=== PATIENT | female | born 1940 | race Hispanic/Latino ===

== ENCOUNTER 2024-06-06 20:13 | Inpatient (IN) | payer OTHER, MEDICARE ==
[~2024-06-06] VITALS: Ht 152.4 cm; Wt 65.2 kg
[2024-06-06] MEDS: VANCOMYCIN KIT 1 GM/250 ML IV.KIT IV ONE (20:29)
[2024-06-06] MEDS: ZOSYN 3.375GM +NS 50ML IV ONE (20:29)
[2024-06-06 20:36] LABS: BASOPHILS # (AUTO) 0.01 K/uL (0.00-0.20); BASOPHILS % (AUTO) 0.2 % (0.0-5.0); HEMATOCRIT 38.8 % (36-48); IMMATURE GRANULOCYTE ABSOLUTE 0.03 K/uL (0-1); LYMPHOCYTES # (AUTO) 0.5 K/uL (1.0-4.8); LYMPHOCYTES % (AUTO) 9.1 % (21.0-51.0); MEAN CORPUSCULAR HEMOGLOBIN 29.7 pg (27.0-33.0); MEAN CORPUSCULAR VOLUME 87.4 fL (79-99); MONOCYTES # (AUTO) 0.4 K/uL (0.1-1.0); MONOCYTES % (AUTO) 6.9 % (3.0-13.0); NEUTROPHILS # (AUTO) 4.9 K/uL (1.8-7.7); NEUTROPHILS % (AUTO) 83.3 % (40.0-77.0); PLATELET COUNT (AUTO) 138 K/uL (130-400); RED BLOOD CELL COUNT(AUTO) 4.44 MIL/uL (4.00-5.50); RED CELL DISTRIBUTION WIDTH 12.6 % (11.0-15.5); WHITE BLOOD COUNT (AUTO) 5.8 K/uL (4.8-10.8)
--- NOTE | 2024-06-06 20:48 | HMCIMG ---
CHEST 1VW CLINICAL HISTORY: 12/11/2023 COMPARISON: None TECHNIQUE: Single view of the chest was obtained. FINDINGS: Lungs are clear. The cardiac size and mediastinum are unremarkable. The bony structures stable. IMPRESSION: No acute cardiopulmonary process identified.
[2024-06-06 20:53] LABS: INFLUENZA TYPE A Negative For Type A (NEGATIVE); INFLUENZA TYPE B Negative For Type B (NEGATIVE); SARS-CoV-2, RNA, NAAT NEGATIVE SARS CoV-2 (NEGATIVE)
[2024-06-06 21:01] LABS: CREATININE 0.8 mg/dL (0.5-1.0)
[2024-06-06 21:10] LABS: ALBUMIN 3.5 g/dL (3.5-5.0); BILIRUBIN,TOTAL 3.3 mg/dL (0.2-1.0); TOTAL PROTEIN, SERUM 7.4 g/dL (6.0-8.3)
--- NOTE | 2024-06-06 21:28 | ERN ---
General Chief Complaint: Sepsis Stated Complaint: RUNNY NOSE Time Seen by MD: 20:15 History of Present Illness Initial Comments Mr Ruiz is an 83-year-old female significant past medical history of obesity, essential hypertension comes in today with upper respiratory symptoms. Patient has been having fevers and myalgias. She has also been having poor p.o. intake. Patient family is concerned about ongoing deterioration. Allergies: Coded Allergies: No Known Allergies (Unverified Allergy, Unknown, 12/05/23) Home Meds No Active Prescriptions or Reported Meds Past Medical History Past Medical History: High Cholesterol, Hypertension Medical History Other: BLIND RT EYE, ACID REFLUX Past Surgical History: Female( History) History: Not Applicable ROS Dictation Constitutional: Positive for fever and chills Eyes: Negative for injury, pain,redness, and discharge ENT: Negative for injury,pain or swelling Cardiovascular: Negative for chest pain, palpitations, and edema Respiratory: Positive for cough, shortness of breath Abdomen/GI: Negative for abdominal pain, nausea, vomiting, diarrhea, and constipation Back: Negative for injury and pain : Negative for injury, bleeding and discharge MS/Extremity: Negative for injury and deformity Skin: Negative for rash, and discoloration Neuro: Negative for headache, weakness, numbness, tingling, and seizure Psych: Negative for suicide ideation, homicidal ideation, and hallucinations Physical Exam Physical Exam Dictation General: Elderly female Head/Face: Normocephalic, Eyes: PERRL, EOMI, vision at baseline ENT: Congested Neck: Trachea midline, supple Cardiovascular: RRR, normal S1/S2, Respiratory: CTAB, no respiratory distress Abdomen: Soft, non-tender, non-distended Skin: Warm, dry, normal turgor, no rash MS/Extremity: Pulses equal Neuro: COAx4, GCS 15, Results Laboratory and Microbiology Lab and Micro Result Laboratory Tests Test 06/06/24 20:25 06/06/24 21:07 White Blood Count 5.8 K/uL (4.8-10.8) Red Blood Count 4.44 MIL/uL (4.00-5.50) Hemoglobin 13.2 g/dL (12.0-16.0) Hematocrit 38.8 % (36-48) Mean Corpuscular Volume 87.4 fL (79-99) Mean Corpuscular Hemoglobin 29.7 pg (27.0-33.0) Mean Corpuscular Hemoglobin Concent 34.0 g/dL (32.0-36.0) Red Cell Distribution Width 12.6 % (11.0-15.5) Platelet Count 138 K/uL (130-400) Mean Platelet Volume 10.4 fL (7.5-10.5) Immature Granulocyte % (Auto) 0.5 % (0-1) Neutrophils (%) (Auto) 83.3 % (40.0-77.0) H Lymphocytes (%) (Auto) 9.1 % (21.0-51.0) L Monocytes (%) (Auto) 6.9 % (3.0-13.0) Eosinophils (%) (Auto) 0.0 % (0.0-8.0) Basophils (%) (Auto) 0.2 % (0.0-5.0) Neutrophils # (Auto) 4.9 K/uL (1.8-7.7) Lymphocytes # (Auto) 0.5 K/uL (1.0-4.8) L Monocytes # (Auto) 0.4 K/uL (0.1-1.0) Eosinophils # (Auto) 0.00 K/uL (0.00-0.70) Basophils # (Auto) 0.01 K/uL (0.00-0.20) Absolute Immature Granulocyte (auto 0.03 K/uL (0-1) Nucleated Red Blood Cells 0.0 % (0.0-0.19) White Cell Morphology Comment See comments Sodium Level 135 mmol/L (136-145) L Potassium Level 4.0 mmol/L (3.5-5.1) Chloride Level 99 mmol/L (101-111) L Carbon Dioxide Level 28 mmol/L (21-32) Blood Urea Nitrogen 15 mg/dL (7-18) Creatinine 0.8 mg/dL (0.5-1.0) Glomerular Filtration Rate Calc 74 mL/min (>90) Random Glucose 294 mg/dL (70-105) H Total Calcium 8.9 mg/dL (8.5-10.1) Total Bilirubin 3.3 mg/dL (0.2-1.0) H Aspartate Amino Transf (AST/SGOT) 423 U/L (10-37) H Alanine Aminotransferase (ALT/SGPT) 254 U/L (12-78) H Alkaline Phosphatase 271 U/L (50-136) H Troponin I High Sensitivity 9 ng/L (4-50) Total Protein 7.4 g/dL (6.0-8.3) Albumin 3.5 g/dL (3.5-5.0) Amylase Level 36 U/L (25-115) Lipase 38 U/L (16-77) Influenza Type A Antigen Negative For Type A Influenza Type B Antigen Negative For Type B SARS-CoV-2, RNA, NAAT NEGATIVE SARS CoV-2 Lactic Acid Level 4.4 mmol/L (0.8-2.5) H MDM PATIENT WILL BE ADMITTED FOR SEPSIS. PATIENT HAS BEEN STARTED ON FLUIDS AND ANTIBIOTICS. PATIENT WAS AN ELEVATED LFTS AND LACTIC ACID MDM: DIFFERENTIAL DIAGNOSIS: SEPSIS RATIONALE: TESTS CONSIDERED AND ORDERED SECONDARY TO SHARED DECISION MAKING INCLUDE: LABS, ECG AND RADIOLOGY PREVIOUS OUTSIDE RECORDS REVIEWED: OLD ER VISITS. RISK OF COMPLICATION AND/OR MORBIDITY OR MORTALITY OF PATIENT MANAGEMENT: NONE MEDICATIONS-PER MEDICATION RECONCILIATION NEED FOR HOSPITALIZATION: PATIENT DOES MEET CRITERIA FOR HOSPITALIZATION. NEED FOR EMERGENCY MAJOR/MINOR SURGERY: NO THERE ARE NO SOCIAL CONCERNS WITH THIS PATIENT. PRESCRIPTION DRUG MANAGEMENT PRESCRIPTIONS WILL INCLUDE SYMPTOMATIC CARE PATIENT'S PRIOR EXTERNAL MEDICAL RECORDS FROM OTHER ER VISITS WERE REVIEWED BY ME INDICATED. PRIOR TESTING AND RESULTS FROM PREVIOUS VISITS WERE REVIEWED. PRIOR TESTS WERE TAKEN INTO ACCOUNT WITH MEDICAL DECISION MAKING AND RESOURCE UTILIZATION, INDEPENDENT HISTORIAN/HISTORIANS WERE USED TO OBTAIN COMPLETE MEDICAL HISTORY. I INDEPENDENTLY INTERPRETED THE TEST THAT WERE PERFORMED, RESULTS WERE REVIEWED BY ME AND CONSIDERED FINDINGS ON RADIOLOGY IF ORDERED. MEDICAL MANAGEMENT AND EXAMINATION INTERPRETATION DISCUSSIONS WERE HAD BY ME WITH OTHER QUALIFIED HEALTHCARE PROFESSIONALS INDICATED FOR THE PATIENT'S CARE. ED Course Orders Procedure Category Date Status Time Cbc With Differential LAB 06/06/24 Complete 20:16 Comprehensive LAB 06/06/24 Complete Metabolic Panel 20:16 Amylase LAB 06/06/24 Complete 20:16 Troponin I High LAB 06/06/24 Complete Sensitivity 20:16 Urinalysis Profile LAB 06/06/24 Logged 20:16 Zosyn 3.375gm+Ns 50ml PHA 06/06/24 Complete (Zosyn 3.375gm+Ns 20:30 Chest 1vw RAD 06/06/24 Resulted 20:16 Lipase LAB 06/06/24 Complete 20:16 Vancomycin 1g/250ml PHA 06/06/24 Complete Kit (Vancomycin 1g/2 20:30 Influenza Type A & B, LAB 06/06/24 Complete Rapid 20:19 Covid Rna Naat LAB 06/06/24 Complete 20:19 Blood Cult VENTURA 06/06/24 In Process 20:26 Lactic Acid LAB 06/06/24 Complete 21:07 Us Abdominal Ruq\Ltd US 06/06/24 Transmitted 21:55 Current Medications Medications (Trade) Dose Ordered Sig/Jair Route PRN Reason Start Time Stop Time Status Last Admin Dose Admin Piperacillin Sod/ Tazobactam Sod (Zosyn 3.375gm+NS 50ml) 3.375 gm ONCE ONCE IV 06/06/24 20:30 06/06/24 20:31 DC 06/06/24 20:29 Vancomycin HCl (Vancomycin 1g/ 250ml Kit) 1 gm ONCE ONCE IV 06/06/24 20:30 06/06/24 20:31 DC 06/06/24 20:29 Vital Signs Date Time Temp Pulse Resp B/P (MAP) Pulse Ox O2 Delivery O2 Flow Rate FiO2 06/06/24 21:35 100.0 103 21 132/62 96 Room Air* 0 21 06/06/24 21:04 100.8 106 23 142/61 97 Room Air* 0 21 06/06/24 20:30 101.5 111 20 154/61 97 Room Air* 0 06/06/24 20:15 101.7 117 20 147/68 96 Room Air DX & DISP Disposition: Inpatient Departure Impression: Primary Impression: Sepsis Condition: Stable Scripts No Active Prescriptions or Reported Meds Referrals: SELF,REFERRAL (PCP) TIMO ARCE MD Jun 06, 2024 21:28
[2024-06-06] MEDS: 0.9%NACL 1000ML 1,836 ML IV ONE (22:00)
[2024-06-06] MEDS ORDERED: LISI10TA24 PO (22:02)
[2024-06-06] MEDS ORDERED: ATOR10TA69 PO (22:02)
[2024-06-06] MEDS ORDERED: PANT40TA54 PO (22:02)
--- NOTE | 2024-06-06 22:07 | NUR ---
MED REC DONE AT THIS TIME.
[2024-06-06 22:24] LABS: INR 1.11 (0.85-1.15); PROTHROMBIN TIME 11.9 SEC (9.6-11.6)
[2024-06-06] MEDS ORDERED: IpraTROPium/alBUTERol SULFATE 3 ML SOLUTION IH PRN (22:30)
[2024-06-06] MEDS ORDERED: GLUCAGON 1MG KIT 1 MG ML IM PRN (22:30)
[2024-06-06] MEDS ORDERED: DEXTROSE 50%-WATER 50 ML DISP.SYRIN IV PRN (22:30)
--- NOTE | 2024-06-06 22:31 | HP ---
[facility] HISTORY & PHYSICAL Date Patient Seen: Jun 07, 2024 Time of Visit: 0045 Supervising Physician: [Dr. Ankur Leonard ] Primary Care Physician: [Dr. Cintia Menard] Outpatient Specialists: [ ] Inpatient Consults: [ ] PROBLEM LIST: Severe sepsis-POA, currently unknown source Lactic acidosis-POA Hepatic transaminitis-POA Hyperglycemia without diabetes diagnosis-POA Hyperbilirubinemia-POA Primary HTN HLD GERD Dementia Fatty liver Legally blind Cataract Glaucoma PLAN: -Admit to PCCU -Start on IV Vanco and Cefepime -IV fluids resuscitation -Pending UA and blood CX -Continue to monitor WBC trends, LA, fever curve, SIRS/mews score -Obtain CT AP -Obtain hepatitis screen and Hg A1c in am -consider GI consult in a.m., as well as MRCP versus HIDA scan 2/2 hyperbilirubinemia and hepatic transaminitis HPI: [ Patient is a 83-year-old female with PMH significant for HTN, HLD, dementia and fatty liver who has presented to the ED accompanied by her daughter complaining of chills, respiratory symptoms with phlegm and looking pale. Daughter claimed that the patient was in her usual state of well-being when she suddenly felt the symptoms since this morning. Patient claims that she could not stand the phlegm while the daughter was concerned because she was looking pale. Significant negatives are fever, nausea, vomiting, abdominal bloating, diarrhea, abdominal pain, dysuria or syncope. At the ED, preliminary lab works were concerning for lactic acidosis and was flagged septic. She was given IV Zosyn and vancomycin as well as IV fluid resuscitation. RUQ US was negative for cholecystitis or hydronephrosis but positive on cholelithiasis. Liver is consistent with parenchymal disease. Daughter denies any history of liver cirrhosis. Chest x-ray is negative for acute cardiopulmonary processes. CT AP result was pending at the time my interview. Physical assessment was unrevealing without abdominal tenderness, ischemia or peritonitis. Lungs are clear to auscultation. Goals of care were discussed with the patient and daughter verbalizes understanding and agreement.] PAST MEDICAL HX: see above PAST SURGICAL HX: noncontributory SOCIAL HISTORY: No tobacco, ETOH, or illicit drug use Coded Allergies: No Known Allergies (Unverified Allergy, Unknown, 6/6/24) REVIEW OF SYSTEMS: 12 point ROS reviewed with patient. Pertinent positives mentioned above. Otherwise negative. PHYSICAL EXAM: GENERAL: alert, weak, awake oriented x 3 HEENT: EOMI, Sclera non icteric, moist mucosa NECK: Supple, no JVD, trachea midline LUNGS: Clear breath sounds bilaterally. No wheezes HEART: Regular rate and rhythm. Normal S1 and S2, without murmurs ABD: Abdomen soft, nontender. Bowel sounds present EXT: No clubbing cyanosis or edema NEURO: Alert and oriented to person, follows commands Vital Signs (last 8hr) Date Time Temp Pulse Resp B/P (MAP) Pulse Ox O2 Delivery O2 Flow Rate FiO2 06/06/24 21:35 100.0 103 21 132/62 96 Room Air* 0 21 06/06/24 21:04 100.8 106 23 142/61 97 Room Air* 0 21 06/06/24 20:30 101.5 111 20 154/61 97 Room Air* 0 21 06/06/24 20:15 101.7 117 20 147/68 96 Room Air LABS: Hematology Labs: Test 06/06/24 20:25 Range/Units White Blood Count 5.8 4.8-10.8 K/uL Red Blood Count 4.44 4.00-5.50 MIL/uL Hemoglobin 13.2 12.0-16.0 g/dL Hematocrit 38.8 36-48 % Mean Corpuscular Volume 87.4 79-99 fL Mean Corpuscular Hemoglobin 29.7 27.0-33.0 pg Mean Corpuscular Hemoglobin Concent 34.0 32.0-36.0 g/dL Red Cell Distribution Width 12.6 11.0-15.5 % Platelet Count 138 130-400 K/uL Mean Platelet Volume 10.4 7.5-10.5 fL Immature Granulocyte % (Auto) 0.5 0-1 % Neutrophils (%) (Auto) 83.3 H 40.0-77.0 % Lymphocytes (%) (Auto) 9.1 L 21.0-51.0 % Monocytes (%) (Auto) 6.9 3.0-13.0 % Eosinophils (%) (Auto) 0.0 0.0-8.0 % Basophils (%) (Auto) 0.2 0.0-5.0 % Neutrophils # (Auto) 4.9 1.8-7.7 K/uL Lymphocytes # (Auto) 0.5 L 1.0-4.8 K/uL Monocytes # (Auto) 0.4 0.1-1.0 K/uL Eosinophils # (Auto) 0.00 0.00-0.70 K/uL Basophils # (Auto) 0.01 0.00-0.20 K/uL Absolute Immature Granulocyte (auto 0.03 0-1 K/uL Nucleated Red Blood Cells 0.0 0.0-0.19 % White Cell Morphology Comment See comments Chemistry Labs: Test 06/06/24 21:07 06/06/24 20:25 Range/Units Lactic Acid Level 4.4 H 0.8-2.5 mmol/L Sodium Level 135 L 136-145 mmol/L Potassium Level 4.0 3.5-5.1 mmol/L Chloride Level 99 L 101-111 mmol/L Carbon Dioxide Level 28 21-32 mmol/L Blood Urea Nitrogen 15 7-18 mg/dL Creatinine 0.8 0.5-1.0 mg/dL Glomerular Filtration Rate Calc 74 >90 mL/min Random Glucose 294 H 70-105 mg/dL Total Calcium 8.9 8.5-10.1 mg/dL Total Bilirubin 3.3 H 0.2-1.0 mg/dL Aspartate Amino Transf (AST/SGOT) 423 H 10-37 U/L Alanine Aminotransferase (ALT/SGPT) 254 H 12-78 U/L Alkaline Phosphatase 271 H 50-136 U/L Troponin I High Sensitivity 9 4-50 ng/L C-Reactive Protein, Quantitative 24.20 H 0.5-3.0 mg/L Total Protein 7.4 6.0-8.3 g/dL Albumin 3.5 3.5-5.0 g/dL Amylase Level 36 25-115 U/L Lipase 38 16-77 U/L Coagulation Labs: Test 06/06/24 20:25 Range/Units Prothrombin Time 11.9 H 9.6-11.6 SEC Prothromb Time International Ratio 1.11 0.85-1.15 Activated Partial Thromboplast Time 24.0 L 26.3-35.5 SEC DIAGNOSTICS / RADIOLOGY RESULTS: [ ] PLAN NEURO: Minimize central acting medications as possible. Maintain fall precautions, adequate lighting during the day PULMONARY: Supplemental 02 as needed. Maintain aspiration precautions at all times CARDIOVASCULAR: Follow hemodynamics. Vital signs per facility protocol GI & NUTRITION: Continue with nutritional support. Continue stool softeners and laxatives as needed. KIDNEYS & ELECTROLYTES: Strict monitoring of intake, output and overall fluid balance. Avoid nephrotoxic medications to the extent possible. Medications to be dosed according to renal function. Monitor electrolytes and replace as needed ENDOCRINE: Maintain blood glucose between 100-180 at all times. Hypoglycemia protocol in place INFECTIOUS DISEASE: Trend temperature, WBC and procalcitonin level Follow cultures, deescalate antibiotics as soon as possible. Panculture if new onset fever ONCOLOGY/HEMATOLOGY/COAGULATION: Monitor for s/s of bleeding Monitor hemoglobin, coagulation studies as needed SKIN: Pressure ulcer prevention per facility protocol Specialty mattress ORTHO/REHAB: Continue PT/OT Prophylaxis: Continue GI and DVT prophylaxis Code Status: Full Resuscitation Disposition: TBD Other: Total patient care time: 35 minutes MATT GRIGGS Jun 06, 2024 22:31
--- NOTE | 2024-06-06 22:53 | HMCIMG ---
US ABDOMINAL RUQ\E\LTD HISTORY: Elevated liver function tests COMPARISON: None TECHNIQUE: Right upper quadrant abdominal ultrasound study was performed. FINDINGS: The study is limited due to overlying bowel gas. Liver measures 14 cm. The visualized portion of the pancreas is within normal limits. Liver is echogenic consistent with liver parenchymal disease. Gallstones are seen in the gallbladder. Common duct measures 4 mm. No evidence of gallbladder wall thickening is seen. Right kidney measures 10 x 4 x 4 cm. No hydronephrosis is seen of the right kidney. IMPRESSION: 1. Gallstones. No ductal dilatation is seen. 2. No hydronephrosis is seen.
[2024-06-06] MEDS ORDERED: VANCOMYCIN PROTOCOL PER PHARMACY IV SCH (23:00)
[2024-06-06 23:34] LABS: APPEARANCE,URINE CLEAR (CLEAR); BILIRUBIN,URINE NEGATIVE (NEGATIVE); COLOR,URINE YELLOW (YELLOW); GLUCOSE, URINE (UA) 500 mg/dL (NEGATIVE); KETONES,URINE 20 mg/dL (NEGATIVE); LEUKOCYTE ESTERASE ,URINE NEGATIVE Leu/uL (NEGATIVE); NITRATE,URINE NEGATIVE (NEGATIVE); PROTEIN,URINE NEGATIVE (NEGATIVE); UROBILINOGEN,URINE 3 mg/dL (0.2-1.0)
[2024-06-06 23:35] LABS: ADD UA MICROSCOPIC YES
[2024-06-06 23:37] LABS: BACTERIA,URINE RARE /HPF (None Seen); SQUAMOUS EPITHELIAL CELL,UR RARE /HPF (0-2)
--- NOTE | 2024-06-06 23:55 | HMCIMG ---
CT ABDOMEN/PELVIS W/O CONTRAST HISTORY: Cirrhosis and ascites COMPARISON: 12/05/2023 TECHNIQUE: Multiple sequential axial images of the abdomen and pelvis were obtained from the dome of the diaphragm through symphysis pubis. Patient was not given contrast through intravenous route. Oral contrast was not given. FINDINGS: No pleural effusion is seen bilaterally. There is no evidence of parenchymal disease or pulmonary nodule of the visualized lower lungs. Degenerative changes of the thoracolumbar spine are present. The heart is not enlarged. Liver is enlarged measuring 17 cm. Gallstones are seen in the distended gallbladder. Subcentimeter left renal cyst is seen. The liver, spleen, adrenal glands and pancreas are unremarkable. There is no evidence of hydronephrosis bilaterally. No evidence of renal stone is seen. There is diverticulosis. There is ventral hernia at midline mid lower abdomen with fat content. Fecal material is seen in the colon. There are normal size retroperitoneal and mesenteric lymph nodes. No ascites is seen. Atherosclerotic changes are present. Uterus is enlarged suspicious for fibroid uterus. No CT evidence of acute appendicitis is seen. Pelvic sidewalls are symmetric bilaterally. Bladder is well distended without wall thickening. IMPRESSION: 1. Gallstones. No ascites is seen. Diverticulosis. Suspect fibroid uterus. CT was performed with one or more following dose reduction techniques: automated exposure control, adjustment of the mA and kv according to patient's size, or use of a iterative reconstruction technique.
[2024-06-07] VITALS (10 sets, daily range): BP systolic 138–176; BP diastolic 55–79; PULSE 70–86; RESP 16–20; TEMP 98.1–98.7; O2SAT 95–96
[2024-06-07] MEDS: INSULIN humuLIN R 100 UNIT/ML 3ML SQ SCH (00:01)
[2024-06-07] MEDS: ceFEPime HCL 1 GM VIAL IVPB SCH (02:26)
[2024-06-07] MEDS: MAGNESIUM 2GM PREMIX 50ML 50 ML IV PRN (02:27)
[2024-06-07 05:50] LABS: BASOPHILS # (AUTO) 0.02 K/uL (0.00-0.20); BASOPHILS % (AUTO) 0.3 % (0.0-5.0); HEMATOCRIT 34.3 % (36-48); IMMATURE GRANULOCYTE ABSOLUTE 0.02 K/uL (0-1); LYMPHOCYTES # (AUTO) 0.7 K/uL (1.0-4.8); LYMPHOCYTES % (AUTO) 8.5 % (21.0-51.0); MEAN CORPUSCULAR HEMOGLOBIN 29.4 pg (27.0-33.0); MEAN CORPUSCULAR HGB CONC 34.1 g/dL (32.0-36.0); MEAN CORPUSCULAR VOLUME 86.2 fL (79-99); MONOCYTES # (AUTO) 0.7 K/uL (0.1-1.0); MONOCYTES % (AUTO) 8.9 % (3.0-13.0); NEUTROPHILS # (AUTO) 6.3 K/uL (1.8-7.7); PLATELET COUNT (AUTO) 119 K/uL (130-400); RED BLOOD CELL COUNT(AUTO) 3.98 MIL/uL (4.00-5.50); RED CELL DISTRIBUTION WIDTH 12.6 % (11.0-15.5); WHITE BLOOD COUNT (AUTO) 7.7 K/uL (4.8-10.8)
[2024-06-07 06:13] LABS: HEMOGLOBIN A1C 6.3 % (4.0-6.0)
[2024-06-07 06:18] LABS: CREATININE 0.7 mg/dL (0.5-1.0); MAGNESIUM 2.4 mg/dL (1.80-2.40); PHOSPHORUS 2.9 mg/dL (2.5-4.9); POTASSIUM 3.3 mmol/L (3.5-5.1); THYROID STIMULATING HORMONE 0.61 uIU/mL (0.36-3.74)
[2024-06-07] MEDS: PoTASSium chloRIDE 10MEQ/100ML 100 ML IV PRN (06:27)
[2024-06-07] MEDS: PANTOPrazole 40 MG/VIAL IVP SCH (09:11)
[2024-06-07] MEDS: ENOXAPARIN SODIUM 30 MG/0.3 ML SQ SCH (09:13)
--- NOTE | 2024-06-07 10:00 | NUR ---
SPOKE WITH KRISTIN RIDDLE WITH [facility] ABOUT FAMILY'S CONCERN: ACCORDING TO PATIENT'S DAUGHTER, LANEY, SHE WAS NOTIFIED OF PATIENT'S POSSIBLE TB EXPOSURE WHEN SHE WAS AT [facility] THIS PAST SUMMER. FAMILY IS CONCERNED IF ANY FOLLOW UP TESTING SHOULD BE DONE.
--- NOTE | 2024-06-07 10:05 | NUR ---
DCP: HOME with family Pt and her daughter Franca 43Shabbir 1981 live at with pt's daughter Shannan [phone]. Franc[facility] Daughters states pt requires assistance with "everything". Needs standby assistance with bathing, dressing, grooming and ambulation. Pt has a regular walker and shower, no HH or HD services. PCP is Ashly Menard and [facility]. Daughters denied need for SNF, state pt will dc home with them Addendum: 06/07/24 at 1013 by CECILIO HAWKINS Amended: Links added.
--- NOTE | 2024-06-07 12:36 | PN ---
[facility] PROGRESS NOTE Date Patient Seen: Jun 07, 2024 Time of Visit: 1054 Supervising Physician: DR. Leonard Primary Care Physician: [Dr. Cintia Menard] Outpatient Specialists: [ ] Inpatient Consults: [ ] PROBLEM LIST: Severe sepsis-POA, currently unknown source Lactic acidosis-POA Hepatic transaminitis-POA Hyperglycemia without diabetes diagnosis-POA Hyperbilirubinemia-POA Primary HTN HLD GERD Dementia Fatty liver Legally blind Cataract Glaucoma PLAN: - Repeat labs in a.m. - Discontinue vancomycin - Continue Cefepime every 8 hours - IV fluids resuscitation - Blood culture showing Gram-negative rods 1 out of 2 sets we will have blood cultures repeated - Start clear liquid diet advance as tolerated - Replace electrolytes protocol INTERVAL HISTORY: 06/07 patient was seen and examined by bedside with family present. Patient is awake alert able to answer questions appropriately. At time of visit patient denies chest pain or shortness of breadth. Patient currently on room air appears to be tolerating well. Patient denies nausea vomiting or abdominal pain. At this time we will advance patient's diet to clear liquid and advance as tolerated. Patient's blood culture positive for Gram-negative rods 1/2 sets, we will repeat blood cultures. Patient to continue on IV antibiotics. We will continue to monitor patient closely REVIEW OF SYSTEMS: 12 point ROS reviewed with patient. Pertinent positives mentioned above. Otherwise negative. PHYSICAL EXAM: GENERAL: alert, weak, awake oriented x 3 HEENT: EOMI, Sclera non icteric, moist mucosa NECK: Supple, no JVD, trachea midline LUNGS: Clear breath sounds bilaterally. No wheezes HEART: Regular rate and rhythm. Normal S1 and S2, without murmurs ABD: Abdomen soft, nontender. Bowel sounds present EXT: No clubbing cyanosis or edema NEURO: Alert and oriented to person, follows commands Vital Signs (last 8hr) Date Time Temp Pulse Resp B/P (MAP) Pulse Ox O2 Delivery O2 Flow Rate FiO2 06/07/24 11:36 98.8 80 20 142/68 96 Room Air 06/07/24 07:28 98.6 72 16 150/55 96 Room Air 06/07/24 04:33 98.4 81 18 139/71 98 Room Air LABS: Hematology Labs: Test 06/07/24 05:42 06/06/24 20:25 Range/Units White Blood Count 7.7 # 4.8-10.8 K/uL Red Blood Count 3.98 L 4.00-5.50 MIL/uL Hemoglobin 11.7 L 12.0-16.0 g/dL Hematocrit 34.3 L 36-48 % Mean Corpuscular Volume 86.2 79-99 fL Mean Corpuscular Hemoglobin 29.4 27.0-33.0 pg Mean Corpuscular Hemoglobin Concent 34.1 32.0-36.0 g/dL Red Cell Distribution Width 12.6 11.0-15.5 % Platelet Count 119 L 130-400 K/uL Mean Platelet Volume 10.2 7.5-10.5 fL Immature Granulocyte % (Auto) 0.3 0-1 % Neutrophils (%) (Auto) 82.0 H 40.0-77.0 % Lymphocytes (%) (Auto) 8.5 L 21.0-51.0 % Monocytes (%) (Auto) 8.9 3.0-13.0 % Eosinophils (%) (Auto) 0.0 0.0-8.0 % Basophils (%) (Auto) 0.3 0.0-5.0 % Neutrophils # (Auto) 6.3 1.8-7.7 K/uL Lymphocytes # (Auto) 0.7 L 1.0-4.8 K/uL Monocytes # (Auto) 0.7 0.1-1.0 K/uL Eosinophils # (Auto) 0.00 0.00-0.70 K/uL Basophils # (Auto) 0.02 0.00-0.20 K/uL Absolute Immature Granulocyte (auto 0.02 0-1 K/uL Nucleated Red Blood Cells 0.0 0.0-0.19 % White Cell Morphology Comment See comments Erythrocyte Sedimentation Rate 15 0-30 MM/HR Chemistry Labs: Test 06/07/24 11:00 06/07/24 05:42 06/07/24 00:57 06/06/24 23:23 Range/Units Whole Blood Glucose 115 H 70-110 MG/DL Sodium Level 136 136-145 mmol/L Potassium Level 3.3 L 3.5-5.1 mmol/L Chloride Level 102 101-111 mmol/L Carbon Dioxide Level 27 21-32 mmol/L Blood Urea Nitrogen 10 7-18 mg/dL Creatinine 0.7 0.5-1.0 mg/dL Glomerular Filtration Rate Calc 86 >90 mL/min Random Glucose 156 H 70-105 mg/dL Hemoglobin A1c 6.3 H 4.0-6.0 % Estimated Average Glucose (eAG) 134 H 70-126 mg/dL Total Calcium 8.3 L 8.5-10.1 mg/dL Ionized Calcium 1.10 L 1.16-1.32 MMOL/L Phosphorus Level 2.9 2.5-4.9 mg/dL Magnesium Level 2.40 1.80-2.40 mg/dL Thyroid Stimulating Hormone (TSH) 0.61 0.36-3.74 uIU/mL Lactic Acid Level 2.4 0.8-2.5 mmol/L Ammonia 27 11-32 umol/L Test 06/06/24 20:25 Range/Units Total Bilirubin 3.3 H 0.2-1.0 mg/dL Aspartate Amino Transf (AST/SGOT) 423 H 10-37 U/L Alanine Aminotransferase (ALT/SGPT) 254 H 12-78 U/L Alkaline Phosphatase 271 H 50-136 U/L Troponin I High Sensitivity 9 4-50 ng/L C-Reactive Protein, Quantitative 24.20 H 0.5-3.0 mg/L Total Protein 7.4 6.0-8.3 g/dL Albumin 3.5 3.5-5.0 g/dL Amylase Level 36 25-115 U/L Lipase 38 16-77 U/L Procalcitonin 0.31 0.05-0.5 ng/mL Coagulation Labs: Test 06/06/24 20:25 Range/Units Prothrombin Time 11.9 H 9.6-11.6 SEC Prothromb Time International Ratio 1.11 0.85-1.15 Activated Partial Thromboplast Time 24.0 L 26.3-35.5 SEC DIAGNOSTICS / RADIOLOGY RESULTS: na PLAN NEURO: Minimize central acting medications as possible. Maintain fall precautions, adequate lighting during the day PULMONARY: Supplemental 02 as needed. Maintain aspiration precautions at all times CARDIOVASCULAR: Follow hemodynamics. Vital signs per facility protocol GI & NUTRITION: Continue with nutritional support. Continue stool softeners and laxatives as needed. KIDNEYS & ELECTROLYTES: Strict monitoring of intake, output and overall fluid balance. Avoid nephrotoxic medications to the extent possible. Medications to be dosed according to renal function. Monitor electrolytes and replace as needed ENDOCRINE: Maintain blood glucose between 100-180 at all times. Hypoglycemia protocol in place INFECTIOUS DISEASE: Trend temperature, WBC and procalcitonin level Follow cultures, deescalate antibiotics as soon as possible. Panculture if new onset fever ONCOLOGY/HEMATOLOGY/COAGULATION: Monitor for s/s of bleeding Monitor hemoglobin, coagulation studies as needed SKIN: Pressure ulcer prevention per facility protocol Specialty mattress ORTHO/REHAB: Continue PT/OT Prophylaxis: Continue GI and DVT prophylaxis Code Status: Full Resuscitation Disposition: TBD Other: Case discussed with supervising physician plan of care agreed upon ROXANNE MCBRIDE Jun 07, 2024 12:36
[2024-06-07] MEDS ORDERED: PoTASSium chloRIDE 20MEQ ER 20 MEQ ERTAB PO PRN (14:00)
--- NOTE | 2024-06-07 14:00 | NUR ---
TOLERATED FULL LIQUID DIET WELL. INITIATED ORAL POTASSIUM REPLACEMENT (K LEVEL 3.3).
[2024-06-07] MEDS: PoTASSium chl 10% ELIXIR 20MEQ 20 MEQ/15 ML UDCUP PO PRN (14:27)
[2024-06-07] MEDS ORDERED: ceFEPime HCL 2 GM VIAL IVPB SCH (14:30)
[2024-06-07 18:26] LABS: HEPATITIS A IGM ANTIBODY Non-Reactive (Nonreactive)
[2024-06-07 18:31] LABS: HEPATITIS B CORE IGM ANTIBODY Non-Reactive (Negative)
[2024-06-07 18:38] LABS: HEPATITIS B SURFACE ANTIBODY Positive (Reactive); HEPATITIS B SURFACE ANTIGEN Non-Reactive (Nonreactive)
[2024-06-07] MEDS ORDERED: VANCOMYCIN 1.25 GM/250 ML BAG 250 ML IV SCH (20:30)
[2024-06-07] MEDS: ceFEPime HCL 2 GM VIAL IVPB SCH (20:45)
[2024-06-08] VITALS (10 sets, daily range): BP systolic 128–160; BP diastolic 63–86; PULSE 67–90; RESP 16–18; TEMP 97.6–98.3; O2SAT 95–98
[2024-06-08 04:28] LABS: HEMATOCRIT 37.2 % (36-48); MEAN CORPUSCULAR HEMOGLOBIN 29.7 pg (27.0-33.0); MEAN CORPUSCULAR HGB CONC 34.1 g/dL (32.0-36.0); MEAN CORPUSCULAR VOLUME 86.9 fL (79-99); RED BLOOD CELL COUNT(AUTO) 4.28 MIL/uL (4.00-5.50); RED CELL DISTRIBUTION WIDTH 12.7 % (11.0-15.5); WHITE BLOOD COUNT (AUTO) 4.8 K/uL (4.8-10.8)
[2024-06-08 04:51] LABS: ALBUMIN 3.1 g/dL (3.5-5.0); BILIRUBIN,TOTAL 6.4 mg/dL (0.2-1.0); CREATININE 0.6 mg/dL (0.5-1.0); POTASSIUM 3.9 mmol/L (3.5-5.1); TOTAL PROTEIN, SERUM 6.9 g/dL (6.0-8.3)
[2024-06-08] MEDS: LISINOPRIL 10 MG TABLET PO SCH (08:46)
--- NOTE | 2024-06-08 13:24 | PN ---
[facility] PROGRESS NOTE Date Patient Seen: Jun 08, 2024 Time of Visit: 1022 Supervising Physician: Dr. Crowley Primary Care Physician: [Dr. Cintia Menard] Outpatient Specialists: [ ] Inpatient Consults: GI PROBLEM LIST: Severe sepsis-POA, secondary to bacteremia Acute bacteremia blood cultures positive for Gram-negative rods Lactic acidosis-POA Hepatic transaminitis-POA Hyperglycemia without diabetes diagnosis-POA Hyperbilirubinemia-POA Primary HTN HLD GERD Dementia Fatty liver Legally blind Cataract Glaucoma PLAN: - we will consult GI at this time due to elevated LFTs - Repeat labs in a.m. - Continue Cefepime every 8 hours - IV fluids resuscitation - Blood culture showing Gram-negative rods 1 out of 2 sets we will have blood cultures repeated - Advance diet as tolerated - Replace electrolytes protocol INTERVAL HISTORY: 06/07 patient was seen and examined by bedside with family present. Patient is awake alert able to answer questions appropriately. At time of visit patient denies chest pain or shortness of breadth. Patient currently on room air appears to be tolerating well. Patient denies nausea vomiting or abdominal pain. At this time we will advance patient's diet to clear liquid and advance as tolerated. Patient's blood culture positive for Gram-negative rods 1/2 sets, we will repeat blood cultures. Patient to continue on IV antibiotics. We will continue to monitor patient closely 06/08 patient was seen and examined by bedside with family present. Patient at time of visit has no specific complaints. Remains on room air tolerating well. Denies chest pain or shortness of breadth. Denies any reoccurrence nausea vomiting or abdominal pain. Is tolerating liquid diet well, we will advance diet as tolerated. Patient's liver enzymes continue to be elevated, total bilirubin trending up today 6.4 yesterday 3.3, at this time we will consult GI appreciate assistance we will follow recommendations. Patient's blood culture positive for Gram-negative rods we will follow up with sensitivity report and repeat blood cultures. Patient to continue on cefepime. REVIEW OF SYSTEMS: 12 point ROS reviewed with patient. Pertinent positives mentioned above. Otherwise negative. PHYSICAL EXAM: GENERAL: alert, weak, awake oriented x 3 HEENT: EOMI, Sclera non icteric, moist mucosa NECK: Supple, no JVD, trachea midline LUNGS: Clear breath sounds bilaterally. No wheezes HEART: Regular rate and rhythm. Normal S1 and S2, without murmurs ABD: Abdomen soft, nontender. Bowel sounds present EXT: No clubbing cyanosis or edema NEURO: Alert and oriented to person, follows commands Vital Signs (last 8hr) Date Time Temp Pulse Resp B/P (MAP) Pulse Ox O2 Delivery O2 Flow Rate FiO2 06/08/24 12:48 97.5 72 16 160/81 99 Room Air 06/08/24 08:28 98.1 67 16 149/69 97 Room Air 06/08/24 08:00 96 Room Air* 0 21 06/08/24 07:09 70 18 N/A Room Air 21 LABS: Hematology Labs: Test 06/08/24 03:50 06/07/24 05:42 06/06/24 20:25 Range/Units White Blood Count 4.8 # 4.8-10.8 K/uL Red Blood Count 4.28 4.00-5.50 MIL/uL Hemoglobin 12.7 12.0-16.0 g/dL Hematocrit 37.2 36-48 % Mean Corpuscular Volume 86.9 79-99 fL Mean Corpuscular Hemoglobin 29.7 27.0-33.0 pg Mean Corpuscular Hemoglobin Concent 34.1 32.0-36.0 g/dL Red Cell Distribution Width 12.7 11.0-15.5 % Platelet Count 139 130-400 K/uL Mean Platelet Volume 11.0 H 7.5-10.5 fL Nucleated Red Blood Cells 0.0 0.0-0.19 % Immature Granulocyte % (Auto) 0.3 0-1 % Neutrophils (%) (Auto) 82.0 H 40.0-77.0 % Lymphocytes (%) (Auto) 8.5 L 21.0-51.0 % Monocytes (%) (Auto) 8.9 3.0-13.0 % Eosinophils (%) (Auto) 0.0 0.0-8.0 % Basophils (%) (Auto) 0.3 0.0-5.0 % Neutrophils # (Auto) 6.3 1.8-7.7 K/uL Lymphocytes # (Auto) 0.7 L 1.0-4.8 K/uL Monocytes # (Auto) 0.7 0.1-1.0 K/uL Eosinophils # (Auto) 0.00 0.00-0.70 K/uL Basophils # (Auto) 0.02 0.00-0.20 K/uL Absolute Immature Granulocyte (auto 0.02 0-1 K/uL White Cell Morphology Comment See comments Erythrocyte Sedimentation Rate 15 0-30 MM/HR Chemistry Labs: Test 06/08/24 11:54 06/08/24 03:50 06/07/24 05:42 06/07/24 00:57 Range/Units Whole Blood Glucose 119 H 70-110 MG/DL Sodium Level 139 136-145 mmol/L Potassium Level 3.9 3.5-5.1 mmol/L Chloride Level 103 101-111 mmol/L Carbon Dioxide Level 28 21-32 mmol/L Blood Urea Nitrogen 8 7-18 mg/dL Creatinine 0.6 0.5-1.0 mg/dL Glomerular Filtration Rate Calc 90 >90 mL/min Random Glucose 121 H 70-105 mg/dL Total Calcium 8.9 8.5-10.1 mg/dL Total Bilirubin 6.4 H 0.2-1.0 mg/dL Aspartate Amino Transf (AST/SGOT) 291 H 10-37 U/L Alanine Aminotransferase (ALT/SGPT) 337 H 12-78 U/L Alkaline Phosphatase 265 H 50-136 U/L Total Protein 6.9 6.0-8.3 g/dL Albumin 3.1 L 3.5-5.0 g/dL Hemoglobin A1c 6.3 H 4.0-6.0 % Estimated Average Glucose (eAG) 134 H 70-126 mg/dL Ionized Calcium 1.10 L 1.16-1.32 MMOL/L Phosphorus Level 2.9 2.5-4.9 mg/dL Magnesium Level 2.40 1.80-2.40 mg/dL Thyroid Stimulating Hormone (TSH) 0.61 0.36-3.74 uIU/mL Lactic Acid Level 2.4 0.8-2.5 mmol/L Test 06/06/24 23:23 06/06/24 20:25 Range/Units Ammonia 27 11-32 umol/L Troponin I High Sensitivity 9 4-50 ng/L C-Reactive Protein, Quantitative 24.20 H 0.5-3.0 mg/L Amylase Level 36 25-115 U/L Lipase 38 16-77 U/L Procalcitonin 0.31 0.05-0.5 ng/mL Coagulation Labs: Test 06/06/24 20:25 Range/Units Prothrombin Time 11.9 H 9.6-11.6 SEC Prothromb Time International Ratio 1.11 0.85-1.15 Activated Partial Thromboplast Time 24.0 L 26.3-35.5 SEC DIAGNOSTICS / RADIOLOGY RESULTS: na PLAN NEURO: Minimize central acting medications as possible. Maintain fall precautions, adequate lighting during the day PULMONARY: Supplemental 02 as needed. Maintain aspiration precautions at all times CARDIOVASCULAR: Follow hemodynamics. Vital signs per facility protocol GI & NUTRITION: Continue with nutritional support. Continue stool softeners and laxatives as needed. KIDNEYS & ELECTROLYTES: Strict monitoring of intake, output and overall fluid balance. Avoid nephrotoxic medications to the extent possible. Medications to be dosed according to renal function. Monitor electrolytes and replace as needed ENDOCRINE: Maintain blood glucose between 100-180 at all times. Hypoglycemia protocol in place INFECTIOUS DISEASE: Trend temperature, WBC and procalcitonin level Follow cultures, deescalate antibiotics as soon as possible. Panculture if new onset fever ONCOLOGY/HEMATOLOGY/COAGULATION: Monitor for s/s of bleeding Monitor hemoglobin, coagulation studies as needed SKIN: Pressure ulcer prevention per facility protocol Specialty mattress ORTHO/REHAB: Continue PT/OT Prophylaxis: Continue GI and DVT prophylaxis Code Status: Full Resuscitation Disposition: TBD Other: Critical care time spent with patient 35 minutes Case discussed with supervising physician plan of care agreed upon ROXANNE MCBRIDE Jun 08, 2024 13:24
--- NOTE | 2024-06-08 14:58 | CONS ---
GASTROENTEROLOGY CONSULTATION NOTE Date of Consultation: Jun 08, 2024 Time of Consultation: 14:58 History of Present Illness: This is an 83yo female with past medical history of HTN, HLD, dementia, fatty liver who presented due to chills, respiratory symptoms with phlegm. She had elevated lactic acid. She was found to have elevated LFTs. Abdominal ultrasound and CT with gallstones. Review of Systems: CONSTITUTIONAL: No malaise or change in sensation of wellbeing. ENMT: No rhinorrhea, otorrhea, sinus pain, ear ache. CARDIOVASCULAR: No angina, palpitations, orthopnea or paroxysmal dyspnea. RESPIRATORY: No SOB. GASTROINTESTINAL: No abdominal pain, nausea, vomiting, diarrhea, hematemesis, melena or change in the patient's habitual bowel movements consistency/number. GENITOURINARY: No dysuria, hematuria or change in bladder continence. MUSCULOSKELETAL: No new muscle pain or decrease in muscular strength. No new joint swelling, redness or tenderness. SKIN: No new rash. Past Medical History: [PAST MEDICAL HX: see above PAST SURGICAL HX: noncontributory SOCIAL HISTORY: No tobacco, ETOH, or illicit drug use Coded Allergies: No Known Allergies (Unverified Allergy, Unknown, 12/05/23) Coded Allergies: No Known Allergies (Unverified Allergy, Unknown, 12/05/23) Physical Exam: GEN: Awake, alert, oriented in person, time and place, and in no acute distress. HEENT: No sinus tenderness. Tympanic membranes were not examined. No rhinorrhea. Oral pharyngeal mucosa is pink, moist and within normal limits. Neck is supple with no cervical lymphadenopathy, thyromegaly or JVD. CHEST: Inspection, palpation and percussion of the chest were unremarkable. Lung auscultation revealed normal breath sounds bilaterally. CARDIAC: PMI is within normal limits. Heart sounds are regular. Normal S1, S2. No gallop or murmur. ABD: Soft, non-tender and not distended. No peritoneal signs on palpation. No organomegaly. Normal bowel sounds. EXT: No cyanosis or clubbing. No edema. SKIN: Intact. No rashes. JOINTS: No evidence of synovitis or acute arthritis. NEURO: Alert and oriented to name, place and person. Cranial nerve examination is unremarkable. No focal motor deficits. Normal speech. Gait is normal. Strength is normal. Vital Sign (Last 24 Hours) 06/08/24 06/08/24 08:00 12:48 Temp 97.5 Pulse 72 Resp 16 B/P (MAP) 160/81 Pulse Ox 99 O2 Delivery Room Air O2 Flow Rate 0 FiO2 21 Intake & Output (last 24hrs) 06/07/24 06/07/24 06/08/24 15:00 23:00 07:00 Intake Total 150.0 ml 240 ml Output Total 700 ml 1900 ml Balance 150.0 ml -460 ml -1900 ml Laboratory: [ ] Laboratory: Test 06/08/24 11:54 06/08/24 03:50 06/07/24 05:42 06/07/24 00:57 Range/Units Whole Blood Glucose 119 H 70-110 MG/DL White Blood Count 4.8 # 4.8-10.8 K/uL Red Blood Count 4.28 4.00-5.50 MIL/uL Hemoglobin 12.7 12.0-16.0 g/dL Hematocrit 37.2 36-48 % Mean Corpuscular Volume 86.9 79-99 fL Mean Corpuscular Hemoglobin 29.7 27.0-33.0 pg Mean Corpuscular Hemoglobin Concent 34.1 32.0-36.0 g/dL Red Cell Distribution Width 12.7 11.0-15.5 % Platelet Count 139 130-400 K/uL Mean Platelet Volume 11.0 H 7.5-10.5 fL Nucleated Red Blood Cells 0.0 0.0-0.19 % Sodium Level 139 136-145 mmol/L Potassium Level 3.9 3.5-5.1 mmol/L Chloride Level 103 101-111 mmol/L Carbon Dioxide Level 28 21-32 mmol/L Blood Urea Nitrogen 8 7-18 mg/dL Creatinine 0.6 0.5-1.0 mg/dL Glomerular Filtration Rate Calc 90 >90 mL/min Random Glucose 121 H 70-105 mg/dL Total Calcium 8.9 8.5-10.1 mg/dL Total Bilirubin 6.4 H 0.2-1.0 mg/dL Aspartate Amino Transf (AST/SGOT) 291 H 10-37 U/L Alanine Aminotransferase (ALT/SGPT) 337 H 12-78 U/L Alkaline Phosphatase 265 H 50-136 U/L Total Protein 6.9 6.0-8.3 g/dL Albumin 3.1 L 3.5-5.0 g/dL Immature Granulocyte % (Auto) 0.3 0-1 % Neutrophils (%) (Auto) 82.0 H 40.0-77.0 % Lymphocytes (%) (Auto) 8.5 L 21.0-51.0 % Monocytes (%) (Auto) 8.9 3.0-13.0 % Eosinophils (%) (Auto) 0.0 0.0-8.0 % Basophils (%) (Auto) 0.3 0.0-5.0 % Neutrophils # (Auto) 6.3 1.8-7.7 K/uL Lymphocytes # (Auto) 0.7 L 1.0-4.8 K/uL Monocytes # (Auto) 0.7 0.1-1.0 K/uL Eosinophils # (Auto) 0.00 0.00-0.70 K/uL Basophils # (Auto) 0.02 0.00-0.20 K/uL Absolute Immature Granulocyte (auto 0.02 0-1 K/uL Hemoglobin A1c 6.3 H 4.0-6.0 % Estimated Average Glucose (eAG) 134 H 70-126 mg/dL Ionized Calcium 1.10 L 1.16-1.32 MMOL/L Phosphorus Level 2.9 2.5-4.9 mg/dL Magnesium Level 2.40 1.80-2.40 mg/dL Thyroid Stimulating Hormone (TSH) 0.61 0.36-3.74 uIU/mL Lactic Acid Level 2.4 0.8-2.5 mmol/L Test 06/06/24 23:30 06/06/24 23:25 06/06/24 23:23 06/06/24 20:25 Range/Units Hepatitis A IgM Antibody Non-Reactive Nonreactive Hepatitis B Surface Antigen. Non-Reactive Nonreactive Hepatitis B Surface Antibody. Positive Reactive Hepatitis B Core IgM Antibody Non-Reactive Negative Urine Color YELLOW YELLOW Urine Appearance CLEAR CLEAR Urine pH 7.0 5.0-8.0 Urine Specific [place] 1.015 1.001-1.031 Urine Protein NEGATIVE NEGATIVE mg/dL Urine Glucose (UA) 500 H NEGATIVE mg/dL Urine Ketones 20 H NEGATIVE mg/dL Urine Occult Blood +- (TRACE) H NEGATIVE Urine Nitrate NEGATIVE NEGATIVE Urine Bilirubin NEGATIVE NEGATIVE mg/dL Urine Urobilinogen 3 H 0.2-1.0 mg/dL Urine Leukocyte Esterase NEGATIVE NEGATIVE [place]/uL Urine RBC 2-5 H 0-1 /HPF Urine WBC 2-5 H 0-1 /HPF Urine Squamous Epithelial Cells RARE 0-2 /HPF Urine Bacteria RARE None Seen /HPF Ammonia 27 11-32 umol/L White Cell Morphology Comment See comments Erythrocyte Sedimentation Rate 15 0-30 MM/HR Prothrombin Time 11.9 H 9.6-11.6 SEC Prothromb Time International Ratio 1.11 0.85-1.15 Activated Partial Thromboplast Time 24.0 L 26.3-35.5 SEC Troponin I High Sensitivity 9 4-50 ng/L C-Reactive Protein, Quantitative 24.20 H 0.5-3.0 mg/L Amylase Level 36 25-115 U/L Lipase 38 16-77 U/L Procalcitonin 0.31 0.05-0.5 ng/mL Influenza Type A Antigen Negative For Type A NEGATIVE Influenza Type B Antigen Negative For Type B NEGATIVE SARS-CoV-2, RNA, NAAT NEGATIVE SARS CoV-2 NEGATIVE Current Medications Medications (Trade) Dose Ordered Sig/Jair Route PRN Reason Start Time Stop Time Status Last Admin Dose Admin Albuterol (DUOneb) 1 udvial [id number] PRN IH SOB/WHEEZE 06/06/24 22:30 07/06/24 22:29 Cefepime HCl (MAXipime 1 GM vial) 1 gm Q12H IVPB 06/07/24 02:00 06/07/24 13:54 DC 06/07/24 13:33 1 GM Cefepime HCl (MAXipime 2 gm vial) 2 gm Q12H IVPB 06/07/24 14:30 06/07/24 14:03 DC Cefepime HCl (MAXipime 2 gm vial) 2 gm Q12H IVPB 06/07/24 21:00 06/17/24 20:59 06/08/24 08:46 2 GM Dextrose (D50w) 50 ml AD PRN IV HYPOGLYCEMIA PROTOCOL 06/06/24 22:30 07/06/24 22:29 Enoxaparin Sodium (Lovenox) 30 mg DAILY SQ 06/07/24 09:00 07/07/24 08:59 06/08/24 08:47 30 MG Glucagon (Glucagon 1mg Kit) 1 mg AD PRN IM HYPOGLYCEMIA PROTOCOL 06/06/24 22:30 07/06/24 22:29 Insulin Human Regular (humuLIN R 100 UNIT/ML 3ML) INSULIN SLIDING SCAL... Q6H6 SQ 06/07/24 00:00 07/07/24 00:00 06/07/24 00:01 2 UNIT Lisinopril (Prinivil 10mg) 10 mg DAILY PO 06/08/24 09:00 07/08/24 08:59 06/08/24 08:46 10 MG Magnesium Sulfate 50 ml @ 0 mls/hr PROTOCOL PRN IV MAGNESIUM PROTOCOL 06/06/24 22:30 07/06/24 22:29 06/07/24 02:27 25 MLS/HR Pantoprazole Sodium (PROTonix 40MG INJ) 40 mg DAILY IVP 06/07/24 09:00 07/07/24 08:59 06/08/24 08:46 40 MG Potassium Chloride 100 ml @ 100 mls/hr AD PRN IV POTASSIUM PROTOCOL 06/06/24 22:30 07/06/24 22:29 06/07/24 06:27 100 MLS/HR Potassium Chloride 100 ml @ 100 mls/hr AD PRN IV POTASSIUM PROTOCOL 06/07/24 14:00 07/07/24 13:59 Potassium Chloride (K-Dur/Klor-Con 20meq) 20 meq AD PRN PO POTASSIUM PROTOCOL 06/07/24 14:00 07/07/24 13:59 Potassium Chloride (KCl 10% Elixir 20meq/15ml) 20 meq AD PRN PO POTASSIUM PROTOCOL 06/07/24 14:00 07/07/24 13:59 06/07/24 17:06 20 MEQ Vancomycin HCl 250 ml @ 125 mls/hr Q24H IV 06/07/24 20:30 06/07/24 13:54 DC Vancomycin HCl (Vancomycin Protocol) 1 each AD IV 06/06/24 23:00 06/08/24 07:43 DC Diagnostics / Radiology: [COPY/PASTE HERE IF NO REPORTS PLEASE DELETE SECTION] Assessment: Abnormal LFTs Cholelithiasis HTN Plan: Obtain MRCP Continue GI prophylaxis Avoid NSAIDs Antireflux measures Monitor H&H and transfuse as needed Call with questions, concerns or change in clinical status Patient to follow-up at clinic post discharge Thank you for this consult SOO DOOLEY EQUINE DENTIST Jun 08, 2024 14:58
[2024-06-08] MEDS ORDERED: MELATONIN 5 MG TABLET PO SCH (19:30)
[2024-06-08] MEDS: MELATONIN 5 MG TABLET PO ONE (20:33)
[2024-06-09] VITALS (11 sets, daily range): BP systolic 127–193; BP diastolic 71–78; PULSE 59–72; RESP 16–18; TEMP 97.9–98.6; O2SAT 97
[2024-06-09 03:50] LABS: HEMATOCRIT 36.6 % (36-48); MEAN CORPUSCULAR HEMOGLOBIN 29.4 pg (27.0-33.0); MEAN CORPUSCULAR HGB CONC 33.9 g/dL (32.0-36.0); MEAN CORPUSCULAR VOLUME 86.7 fL (79-99); RED BLOOD CELL COUNT(AUTO) 4.22 MIL/uL (4.00-5.50); RED CELL DISTRIBUTION WIDTH 12.7 % (11.0-15.5); WHITE BLOOD COUNT (AUTO) 4.5 K/uL (4.8-10.8)
[2024-06-09 04:07] LABS: ALBUMIN 2.8 g/dL (3.5-5.0); BILIRUBIN,TOTAL 4.3 mg/dL (0.2-1.0); CREATININE 0.7 mg/dL (0.5-1.0); POTASSIUM 4.1 mmol/L (3.5-5.1); TOTAL PROTEIN, SERUM 6.7 g/dL (6.0-8.3)
--- NOTE | 2024-06-09 10:52 | HMCIMG ---
MRCP(ABDWO)CHOLANGIOPANCREATOG REASON: abnormal lfts, eval for cbd stones COMPARISON: None TECHNIQUE: MRI abdomen was performed over in the coronal and axial plane with T1, proton density, T2 and gradient recalled sequences. MRCP images were generated from the coronal fluid sensitive acquisition using maximum pixel intensity technique. FINDINGS: There are multiple very small stones in the gallbladder. There is no wall thickening or edema to suggest acute cholecystitis. The common duct is dilated up to 1 cm in its midportion. There is at least one filling defect present distally consistent with choledocholithiasis. There are no focal liver lesions. Intrahepatic biliary tree appears only mildly distended. Spleen and kidneys appear normal. Pancreatic duct is mildly dilated at 4 mm. The pancreas appears otherwise normal, there is no evidence of pancreatitis. There are no focal pancreatic masses. There are no focal fluid collections. There is no free fluid. There is no lymphadenopathy. Anterior abdominal wall appears intact. IMPRESSION: 1. Cholelithiasis, there is at least one stone in the distal common duct consistent with choledocholithiasis, common duct measures 1 cm in the midportion. 2. Pancreatic duct is mildly enlarged as well at 5 mm. 3. No evidence of acute cholecystitis, the exam is otherwise normal.
--- NOTE | 2024-06-09 14:11 | PN ---
[facility] PROGRESS NOTE Date Patient Seen: Jun 09, 2024 Time of Visit: 14:08 Supervising Physician: Dr. Crowley Primary Care Physician: [Dr. Cintia Menard] Outpatient Specialists: [ ] Inpatient Consults: GI PROBLEM LIST: Severe sepsis-POA, secondary to bacteremia Acute bacteremia blood cultures positive for E-Coli Lactic acidosis-POA Hepatic transaminitis-POA Hyperglycemia without diabetes diagnosis-POA Hyperbilirubinemia-POA Primary HTN HLD GERD Dementia Fatty liver Legally blind Cataract Glaucoma PLAN: - we will consult GI at this time due to elevated LFTs- MRCP with choledocholithiasis - Repeat labs in a.m. - Continue Cefepime every 8 hours - IV fluids resuscitation - Blood culture showing Gram-negative rods 1 out of 2 sets we will have blood cultures repeated - Advance diet as tolerated - Replace electrolytes protocol INTERVAL HISTORY: 06/07 patient was seen and examined by bedside with family present. Patient is awake alert able to answer questions appropriately. At time of visit patient denies chest pain or shortness of breadth. Patient currently on room air appears to be tolerating well. Patient denies nausea vomiting or abdominal pain. At this time we will advance patient's diet to clear liquid and advance as tolerated. Patient's blood culture positive for Gram-negative rods 1/2 sets, we will repeat blood cultures. Patient to continue on IV antibiotics. We will continue to monitor patient closely 06/08 patient was seen and examined by bedside with family present. Patient at time of visit has no specific complaints. Remains on room air tolerating well. Denies chest pain or shortness of breadth. Denies any reoccurrence nausea vomiting or abdominal pain. Is tolerating liquid diet well, we will advance diet as tolerated. Patient's liver enzymes continue to be elevated, total bilirubin trending up today 6.4 yesterday 3.3, at this time we will consult GI appreciate assistance we will follow recommendations. Patient's blood culture positive for Gram-negative rods we will follow up with sensitivity report and repeat blood cultures. Patient to continue on cefepime. 06/09 patient is awake alert oriented x3 not in acute distress vital signs this morning with blood pressure of 135/71 heart rate is 67 T-max 98.6 respiratory rate is 18. She remains on room air sats 97%. Updated with cultures, blood culture is with positive E coli. This is pansensitive but given this is intra- abdominal we can continue with the current antibiotic with cefepime. This morning with WBC of 4.5 platelet count is 142. Chemistry glucose 112 LFTs with total bilirubin of 4.3 down from 6.4 AST 199 this is down from 291 ALT is 293 down from 330. Alkaline phos is 300 this is up from 260. Patient had MRCP done this morning with results of cholelithiasis, there is at least one stone in the distal common duct consistent with choledocholithiasis. Consulted to gas troenterologist pending recommendations. Patient likely will be benefitted from ERCP. Continue with IV fluids and liquid diet. We can downgrade her to medical- surgical. REVIEW OF SYSTEMS: 12 point ROS reviewed with patient. Pertinent positives mentioned above. Otherwise negative. PHYSICAL EXAM: GENERAL: alert, weak, awake oriented x 3 HEENT: EOMI, Sclera non icteric, moist mucosa NECK: Supple, no JVD, trachea midline LUNGS: Clear breath sounds bilaterally. No wheezes HEART: Regular rate and rhythm. Normal S1 and S2, without murmurs ABD: Abdomen soft, nontender. Bowel sounds present EXT: No clubbing cyanosis or edema NEURO: Alert and oriented to person, follows commands Vital Signs (last 8hr) Date Time Temp Pulse Resp B/P (MAP) Pulse Ox O2 Delivery O2 Flow Rate FiO2 06/09/24 12:02 97.9 67 18 135/71 97 Room Air 06/09/24 08:01 98.2 61 18 148/77 99 Room Air 06/09/24 07:55 97 Room Air* 0 21 06/09/24 06:51 70 18 N/A Room Air 21 LABS: Hematology Labs: Test 06/09/24 03:33 Range/Units White Blood Count 4.5 L 4.8-10.8 K/uL Red Blood Count 4.22 4.00-5.50 MIL/uL Hemoglobin 12.4 12.0-16.0 g/dL Hematocrit 36.6 36-48 % Mean Corpuscular Volume 86.7 79-99 fL Mean Corpuscular Hemoglobin 29.4 27.0-33.0 pg Mean Corpuscular Hemoglobin Concent 33.9 32.0-36.0 g/dL Red Cell Distribution Width 12.7 11.0-15.5 % Platelet Count 142 130-400 K/uL Mean Platelet Volume 10.6 H 7.5-10.5 fL Nucleated Red Blood Cells 0.0 0.0-0.19 % Chemistry Labs: Test 06/09/24 11:44 06/09/24 03:33 Range/Units Whole Blood Glucose 132 H 70-110 MG/DL Sodium Level 139 136-145 mmol/L Potassium Level 4.1 3.5-5.1 mmol/L Chloride Level 104 101-111 mmol/L Carbon Dioxide Level 29 21-32 mmol/L Blood Urea Nitrogen 13 7-18 mg/dL Creatinine 0.7 0.5-1.0 mg/dL Glomerular Filtration Rate Calc 86 >90 mL/min Random Glucose 112 H 70-105 mg/dL Total Calcium 8.8 8.5-10.1 mg/dL Magnesium Level 2.20 1.80-2.40 mg/dL Total Bilirubin 4.3 #H 0.2-1.0 mg/dL Aspartate Amino Transf (AST/SGOT) 199 H 10-37 U/L Alanine Aminotransferase (ALT/SGPT) 293 H 12-78 U/L Alkaline Phosphatase 300 H 50-136 U/L Total Protein 6.7 6.0-8.3 g/dL Albumin 2.8 L 3.5-5.0 g/dL DIAGNOSTICS / RADIOLOGY RESULTS: [ ] PLAN NEURO: Minimize central acting medications as possible. Maintain fall precautions, adequate lighting during the day PULMONARY: Supplemental 02 as needed. Maintain aspiration precautions at all times CARDIOVASCULAR: Follow hemodynamics. Vital signs per facility protocol GI & NUTRITION: Continue with nutritional support. Continue stool softeners and laxatives as needed. KIDNEYS & ELECTROLYTES: Strict monitoring of intake, output and overall fluid balance. Avoid nephrotoxic medications to the extent possible. Medications to be dosed according to renal function. Monitor electrolytes and replace as needed ENDOCRINE: Maintain blood glucose between 100-180 at all times. Hypoglycemia protocol in place INFECTIOUS DISEASE: Trend temperature, WBC and procalcitonin level Follow cultures, deescalate antibiotics as soon as possible. Panculture if new onset fever ONCOLOGY/HEMATOLOGY/COAGULATION: Monitor for s/s of bleeding Monitor hemoglobin, coagulation studies as needed SKIN: Pressure ulcer prevention per facility protocol Specialty mattress ORTHO/REHAB: Continue PT/OT Prophylaxis: Continue GI and DVT prophylaxis Code Status: Full Resuscitation Disposition: TBD Other: Critical care time spent with patient 35 minutes Case discussed with supervising physician plan of care agreed upon [facility] Jun 09, 2024 14:11
[2024-06-09] MEDS: LACTATED RINGERS 1000ML 1,000 ML IV SCH (14:20)
--- NOTE | 2024-06-09 17:30 | PN ---
GASTROENTEROLOGY PROGRESS NOTE Date of Visit: Jun 09, 2024 Time of Visit: 17:30 Events / Notes: No acute events overnight. Patient had MRCP revealing cholelithiasis, and at least one stone in the distal common duct consistent with choledocholithiasis. Review of Systems: CONSTITUTIONAL: No malaise or change in sensation of wellbeing. ENMT: No rhinorrhea, otorrhea, sinus pain, ear ache. CARDIOVASCULAR: No angina, palpitations, orthopnea or paroxysmal dyspnea. RESPIRATORY: No SOB. GASTROINTESTINAL: No abdominal pain, nausea, vomiting, diarrhea, hematemesis, melena or change in the patient's habitual bowel movements consistency/number. GENITOURINARY: No dysuria, hematuria or change in bladder continence. MUSCULOSKELETAL: No new muscle pain or decrease in muscular strength. No new joint swelling, redness or tenderness. SKIN: No new rash. Physical Exam: GEN: Awake, alert, oriented in person, time and place, and in no acute distress. HEENT: No sinus tenderness. Tympanic membranes were not examined. No rhinorrhea. Oral pharyngeal mucosa is pink, moist and within normal limits. Neck is supple with no cervical lymphadenopathy, thyromegaly or JVD. CHEST: Inspection, palpation and percussion of the chest were unremarkable. Lung auscultation revealed normal breath sounds bilaterally. CARDIAC: PMI is within normal limits. Heart sounds are regular. Normal S1, S2. No gallop or murmur. ABD: Soft, non-tender and not distended. No peritoneal signs on palpation. No organomegaly. Normal bowel sounds. EXT: No cyanosis or clubbing. No edema. SKIN: Intact. No rashes. JOINTS: No evidence of synovitis or acute arthritis. NEURO: Alert and oriented to name, place and person. Cranial nerve examination is unremarkable. No focal motor deficits. Normal speech. Gait is normal. Strength is normal. Vital Signs (last 8hr) Date Time Temp Pulse Resp B/P (MAP) Pulse Ox O2 Delivery O2 Flow Rate FiO2 06/09/24 16:52 98.1 72 16 127/71 96 Room Air 06/09/24 12:02 97.9 67 18 135/71 97 Room Air Laboratory: [ ] Laboratory: Test 06/09/24 16:10 06/09/24 03:33 Range/Units Whole Blood Glucose 126 H 70-110 MG/DL White Blood Count 4.5 L 4.8-10.8 K/uL Red Blood Count 4.22 4.00-5.50 MIL/uL Hemoglobin 12.4 12.0-16.0 g/dL Hematocrit 36.6 36-48 % Mean Corpuscular Volume 86.7 79-99 fL Mean Corpuscular Hemoglobin 29.4 27.0-33.0 pg Mean Corpuscular Hemoglobin Concent 33.9 32.0-36.0 g/dL Red Cell Distribution Width 12.7 11.0-15.5 % Platelet Count 142 130-400 K/uL Mean Platelet Volume 10.6 H 7.5-10.5 fL Nucleated Red Blood Cells 0.0 0.0-0.19 % Sodium Level 139 136-145 mmol/L Potassium Level 4.1 3.5-5.1 mmol/L Chloride Level 104 101-111 mmol/L Carbon Dioxide Level 29 21-32 mmol/L Blood Urea Nitrogen 13 7-18 mg/dL Creatinine 0.7 0.5-1.0 mg/dL Glomerular Filtration Rate Calc 86 >90 mL/min Random Glucose 112 H 70-105 mg/dL Total Calcium 8.8 8.5-10.1 mg/dL Magnesium Level 2.20 1.80-2.40 mg/dL Total Bilirubin 4.3 #H 0.2-1.0 mg/dL Aspartate Amino Transf (AST/SGOT) 199 H 10-37 U/L Alanine Aminotransferase (ALT/SGPT) 293 H 12-78 U/L Alkaline Phosphatase 300 H 50-136 U/L Total Protein 6.7 6.0-8.3 g/dL Albumin 2.8 L 3.5-5.0 g/dL Current Medications Medications (Trade) Dose Ordered Sig/Jair Route PRN Reason Start Time Stop Time Status Last Admin Dose Admin Albuterol (DUOneb) 1 udvial [id number] PRN IH SOB/WHEEZE 06/06/24 22:30 07/06/24 22:29 Cefepime HCl (MAXipime 1 GM vial) 1 gm Q12H IVPB 06/07/24 02:00 06/07/24 13:54 DC 06/07/24 13:33 1 GM Cefepime HCl (MAXipime 2 gm vial) 2 gm Q12H IVPB 06/07/24 14:30 06/07/24 14:03 DC Cefepime HCl (MAXipime 2 gm vial) 2 gm Q12H IVPB 06/07/24 21:00 06/17/24 20:59 06/09/24 08:16 2 GM Dextrose (D50w) 50 ml AD PRN IV HYPOGLYCEMIA PROTOCOL 06/06/24 22:30 07/06/24 22:29 Enoxaparin Sodium (Lovenox) 30 mg DAILY SQ 06/07/24 09:00 07/07/24 08:59 06/09/24 08:16 30 MG Glucagon (Glucagon 1mg Kit) 1 mg AD PRN IM HYPOGLYCEMIA PROTOCOL 06/06/24 22:30 07/06/24 22:29 Insulin Human Regular (humuLIN R 100 UNIT/ML 3ML) INSULIN SLIDING SCAL... Q6H6 SQ 06/07/24 00:00 07/07/24 00:00 06/07/24 00:01 2 UNIT Lactated Ringer's 1,000 ml @ 100 mls/hr Q10H IV 06/09/24 14:30 06/12/24 14:29 06/09/24 14:20 100 MLS/HR Lisinopril (Prinivil 10mg) 10 mg DAILY PO 06/08/24 09:00 07/08/24 08:59 06/09/24 12:00 10 MG Magnesium Sulfate 50 ml @ 0 mls/hr PROTOCOL PRN IV MAGNESIUM PROTOCOL 06/06/24 22:30 07/06/24 22:29 06/07/24 02:27 25 MLS/HR Melatonin (Melatonin) 5 mg ONCE PO 06/08/24 19:30 06/08/24 19:28 DC Pantoprazole Sodium (PROTonix 40MG INJ) 40 mg DAILY IVP 06/07/24 09:00 07/07/24 08:59 06/09/24 08:16 40 MG Potassium Chloride 100 ml @ 100 mls/hr AD PRN IV POTASSIUM PROTOCOL 06/06/24 22:30 07/06/24 22:29 06/07/24 06:27 100 MLS/HR Potassium Chloride 100 ml @ 100 mls/hr AD PRN IV POTASSIUM PROTOCOL 06/07/24 14:00 07/07/24 13:59 Potassium Chloride (K-Dur/Klor-Con 20meq) 20 meq AD PRN PO POTASSIUM PROTOCOL 06/07/24 14:00 07/07/24 13:59 Potassium Chloride (KCl 10% Elixir 20meq/15ml) 20 meq AD PRN PO POTASSIUM PROTOCOL 06/07/24 14:00 07/07/24 13:59 06/07/24 17:06 20 MEQ Vancomycin HCl 250 ml @ 125 mls/hr Q24H IV 06/07/24 20:30 06/07/24 13:54 DC Vancomycin HCl (Vancomycin Protocol) 1 each AD IV 06/06/24 23:00 06/08/24 07:43 DC Diagnostics / Radiology: [COPY/PASTE HERE IF NO REPORTS PLEASE DELETE SECTION] Assessment: Abnormal LFTs Cholelithiasis HTN Plan: ERCP in am Continue GI prophylaxis Avoid NSAIDs Antireflux measures Monitor H&H and transfuse as needed Call with questions, concerns or change in clinical status Patient to follow-up at clinic post discharge Thank you for this consult SOO DOOLEY MEDICAL RECORD RETRIEVAL SPECIALIST Jun 09, 2024 17:30
[2024-06-09] MEDS: DiphenhydrAMINE HCL 25 MG CAPSULE PO PRN (21:39)
--- NOTE | 2024-06-09 23:50 | NUR ---
BLOOD PRESSURE ELEVATED. PATIENT STATES SHE FEELS FINE, AAOX4, DAUGHTER AT BEDSIDE. BENCHMARK PAGED.
[2024-06-10] VITALS (25 sets, daily range): BP systolic 106–205; BP diastolic 46–88; PULSE 62–84; RESP 13–20; TEMP 97.1–98.6; O2SAT 97–99
--- NOTE | 2024-06-10 00:19 | NUR ---
BENCHMARK NEW ORDERS FOR ELEVATED BLOOD PRESSURE
[2024-06-10] MEDS: hydrALAZine 20MG/ML VIAL IV PRN (00:27)
[2024-06-10 03:43] LABS: BASOPHILS # (AUTO) 0.03 K/uL (0.00-0.20); BASOPHILS % (AUTO) 0.8 % (0.0-5.0); EOSINOPHILS # (AUTO) 0.09 K/uL (0.00-0.70); EOSINOPHILS % (AUTO) 2.4 % (0.0-8.0); HEMATOCRIT 35.9 % (36-48); IMMATURE GRANULOCYTE ABSOLUTE 0.01 K/uL (0-1); LYMPHOCYTES # (AUTO) 1.3 K/uL (1.0-4.8); LYMPHOCYTES % (AUTO) 35.6 % (21.0-51.0); MEAN CORPUSCULAR HEMOGLOBIN 29.8 pg (27.0-33.0); MEAN CORPUSCULAR HGB CONC 34.5 g/dL (32.0-36.0); MEAN CORPUSCULAR VOLUME 86.3 fL (79-99); MONOCYTES # (AUTO) 0.5 K/uL (0.1-1.0); NEUTROPHILS # (AUTO) 1.8 K/uL (1.8-7.7); NEUTROPHILS % (AUTO) 48.9 % (40.0-77.0); PLATELET COUNT (AUTO) 158 K/uL (130-400); RED BLOOD CELL COUNT(AUTO) 4.16 MIL/uL (4.00-5.50); RED CELL DISTRIBUTION WIDTH 12.8 % (11.0-15.5); WHITE BLOOD COUNT (AUTO) 3.7 K/uL (4.8-10.8)
[2024-06-10 04:07] LABS: ALBUMIN 2.8 g/dL (3.5-5.0); BILIRUBIN,TOTAL 2.4 mg/dL (0.2-1.0); CREATININE 0.6 mg/dL (0.5-1.0); POTASSIUM 3.5 mmol/L (3.5-5.1); TOTAL PROTEIN, SERUM 6.5 g/dL (6.0-8.3)
[2024-06-10] MEDS: PoTASSium chloRIDE 20MEQ/100ML 100 ML IV PRN (05:58)
--- NOTE | 2024-06-10 11:30 | NUR ---
TO GI LAB FOR ERCP. TELEMETRY WAS DC'D PRIOR TO GOING TO GI LAB AND WILL REMAIN OFF.
[2024-06-10] MEDS: INDOMETHACIN 100 MG SUPP.RECT RC ONE (12:00)
[2024-06-10] MEDS ORDERED: FENTanyl CITRate PF 50 MCG/1 ML 2ML VIAL ONE (13:32)
[2024-06-10] MEDS ORDERED: LIDOCAINE PF 100MG/5ML (2%) SYRINGE 5ML ONE (13:33)
[2024-06-10] MEDS ORDERED: proPOFol 10 MG/ML 20ML VIAL IV ONE (13:33)
[2024-06-10] MEDS ORDERED: ondanSETRON 4MG INJ ONE (13:33)
[2024-06-10] MEDS ORDERED: IOHEXOL-350 50ML VIAL IV ONE (14:15)
--- NOTE | 2024-06-10 16:06 | HMCIMG ---
ERCP BILI/PANC DUCT REASON: CHOLELITHIASIS COMPARISON: None TECHNIQUE: 8 surgical spot views obtained documenting ERCP procedure. Possibly time was 59 seconds. IMPRESSION: 1. Poor documentation of ERCP procedure.
--- NOTE | 2024-06-10 17:31 | PN ---
[facility] PROGRESS NOTE Date Patient Seen: Jun 10, 2024 Time of Visit: 17:22 Supervising Physician: Dr. Pepe Primary Care Physician: [Dr. Cintia Menard] Outpatient Specialists: [ ] Inpatient Consults: GI PROBLEM LIST: Severe sepsis- with organ failure: liver and respiratory secondary to bacteremia POA Gram negative bacteremia -- E-Coli POA Choledocholithiasis S/p ERCP on 06/10/24 Cholelithiasis Lactic acidosis-POA Hepatic transaminitis-POA Hyperglycemia without diabetes diagnosis-POA Hyperbilirubinemia-POA Primary HTN HLD GERD Dementia Fatty liver Legally blind Cataract Glaucoma PLAN: Post ERCP care Repeat labs in a.m including lipase Continue Cefepime every 8 hours IV fluids resuscitation Blood culture with E coli Advance diet as tolerated Replace electrolytes protocol INTERVAL HISTORY: 06/07 patient was seen and examined by bedside with family present. Patient is awake alert able to answer questions appropriately. At time of visit patient denies chest pain or shortness of breadth. Patient currently on room air appears to be tolerating well. Patient denies nausea vomiting or abdominal pain. At this time we will advance patient's diet to clear liquid and advance as tolerated. Patient's blood culture positive for Gram-negative rods 1/2 sets, we will repeat blood cultures. Patient to continue on IV antibiotics. We will continue to monitor patient closely 06/08 patient was seen and examined by bedside with family present. Patient at time of visit has no specific complaints. Remains on room air tolerating well. Denies chest pain or shortness of breadth. Denies any reoccurrence nausea vomiting or abdominal pain. Is tolerating liquid diet well, we will advance diet as tolerated. Patient's liver enzymes continue to be elevated, total bilirubin trending up today 6.4 yesterday 3.3, at this time we will consult GI appreciate assistance we will follow recommendations. Patient's blood culture positive for Gram-negative rods we will follow up with sensitivity report and repeat blood cultures. Patient to continue on cefepime. 06/09 patient is awake alert oriented x3 not in acute distress vital signs this morning with blood pressure of 135/71 heart rate is 67 T-max 98.6 respiratory rate is 18. She remains on room air sats 97%. Updated with cultures, blood culture is with positive E coli. This is pansensitive but given this is intra- abdominal we can continue with the current antibiotic with cefepime. This morning with WBC of 4.5 platelet count is 142. Chemistry glucose 112 LFTs with total bilirubin of 4.3 down from 6.4 AST 199 this is down from 291 ALT is 293 down from 330. Alkaline phos is 300 this is up from 260. Patient had MRCP done this morning with results of cholelithiasis, there is at least one stone in the distal common duct consistent with choledocholithiasis. Consulted to progress man pending recommendations. Patient likely will be benefitted from ERCP. Continue with IV fluids and liquid diet. We can downgrade her to medical-surgical. 06/10 patient just came back from ERCP not in acute distress. They were able to remove the choledocholithiasis. We will repeat lipase and CMP in the morning to monitor liver and pancreatic enzymes closely. Otherwise her lab with the potassium 3.5 bicarb 30 total bilirubin is 2.4 and this is down from 4.3 AST and ALT of 123 and 230. Lipase is 38 on 2 days ago we will check tomorrow morning. Continue IVF. Diet per GI. REVIEW OF SYSTEMS: 12 point ROS reviewed with patient. Pertinent positives mentioned above. Otherwise negative. PHYSICAL EXAM: GENERAL: alert, weak, awake oriented x 3 HEENT: EOMI, Sclera non icteric, moist mucosa NECK: Supple, no JVD, trachea midline LUNGS: Clear breath sounds bilaterally. No wheezes HEART: Regular rate and rhythm. Normal S1 and S2, without murmurs ABD: Abdomen soft, nontender. Bowel sounds present EXT: No clubbing cyanosis or edema NEURO: Alert and oriented to person, follows commands Vital Signs (last 8hr) Date Time Temp Pulse Resp B/P (MAP) Pulse Ox O2 Delivery O2 Flow Rate FiO2 06/10/24 16:30 79 18 108/51 97 Room Air 06/10/24 16:00 77 18 108/46 100 Room Air 06/10/24 15:30 75 18 160/57 100 Room Air 06/10/24 15:15 69 18 160/88 100 Room Air 06/10/24 15:00 98.4 62 18 205/75 100 Room Air 06/10/24 14:45 97.3 68 18 159/76 99 Nasal Cannula 2.0 06/10/24 14:45 98.6 65 18 193/84 97 Room Air 06/10/24 14:40 68 18 145/75 99 Nasal Cannula 2.0 06/10/24 14:35 67 19 156/76 98 Nasal Cannula 2.0 06/10/24 14:30 68 16 157/64 99 Nasal Cannula 2.0 06/10/24 14:25 63 20 156/66 99 Nasal Cannula 2.0 06/10/24 14:20 67 20 159/66 99 Nasal Cannula 2.0 06/10/24 14:15 66 14 160/69 99 Nasal Cannula 2.0 06/10/24 14:10 66 17 157/67 100 Nonrebreathing Mask 100 06/10/24 14:05 65 13 161/63 100 Nonrebreathing Mask 100 06/10/24 14:00 97.2 64 14 152/61 98 Nonrebreathing Mask 100 06/10/24 13:36 ET 7.0 06/10/24 13:36 ET 7.0 06/10/24 12:48 97.9 64 16 178/67 98 Room Air LABS: Hematology Labs: Test 06/10/24 03:18 Range/Units White Blood Count 3.7 L 4.8-10.8 K/uL Red Blood Count 4.16 4.00-5.50 MIL/uL Hemoglobin 12.4 12.0-16.0 g/dL Hematocrit 35.9 L 36-48 % Mean Corpuscular Volume 86.3 79-99 fL Mean Corpuscular Hemoglobin 29.8 27.0-33.0 pg Mean Corpuscular Hemoglobin Concent 34.5 32.0-36.0 g/dL Red Cell Distribution Width 12.8 11.0-15.5 % Platelet Count 158 130-400 K/uL Mean Platelet Volume 10.5 7.5-10.5 fL Immature Granulocyte % (Auto) 0.3 0-1 % Neutrophils (%) (Auto) 48.9 40.0-77.0 % Lymphocytes (%) (Auto) 35.6 21.0-51.0 % Monocytes (%) (Auto) 12.0 3.0-13.0 % Eosinophils (%) (Auto) 2.4 0.0-8.0 % Basophils (%) (Auto) 0.8 0.0-5.0 % Neutrophils # (Auto) 1.8 1.8-7.7 K/uL Lymphocytes # (Auto) 1.3 1.0-4.8 K/uL Monocytes # (Auto) 0.5 0.1-1.0 K/uL Eosinophils # (Auto) 0.09 0.00-0.70 K/uL Basophils # (Auto) 0.03 0.00-0.20 K/uL Absolute Immature Granulocyte (auto 0.01 0-1 K/uL Nucleated Red Blood Cells 0.0 0.0-0.19 % Chemistry Labs: Test 06/10/24 15:34 06/10/24 03:18 06/09/24 03:33 Range/Units Whole Blood Glucose 157 H 70-110 MG/DL Sodium Level 143 136-145 mmol/L Potassium Level 3.5 3.5-5.1 mmol/L Chloride Level 107 101-111 mmol/L Carbon Dioxide Level 30 21-32 mmol/L Blood Urea Nitrogen 9 7-18 mg/dL Creatinine 0.6 0.5-1.0 mg/dL Glomerular Filtration Rate Calc 90 >90 mL/min Random Glucose 105 70-105 mg/dL Total Calcium 8.7 8.5-10.1 mg/dL Total Bilirubin 2.4 #H 0.2-1.0 mg/dL Aspartate Amino Transf (AST/SGOT) 123 H 10-37 U/L Alanine Aminotransferase (ALT/SGPT) 234 #H 12-78 U/L Alkaline Phosphatase 326 H 50-136 U/L Total Protein 6.5 6.0-8.3 g/dL Albumin 2.8 L 3.5-5.0 g/dL Procalcitonin 2.33 H 0.05-0.5 ng/mL Magnesium Level 2.20 1.80-2.40 mg/dL DIAGNOSTICS / RADIOLOGY RESULTS: [ ] PLAN NEURO: Minimize central acting medications as possible. Maintain fall precautions, adequate lighting during the day PULMONARY: Supplemental 02 as needed. Maintain aspiration precautions at all times CARDIOVASCULAR: Follow hemodynamics. Vital signs per facility protocol GI & NUTRITION: Continue with nutritional support. Continue stool softeners and laxatives as needed. KIDNEYS & ELECTROLYTES: Strict monitoring of intake, output and overall fluid balance. Avoid nephrotoxic medications to the extent possible. Medications to be dosed according to renal function. Monitor electrolytes and replace as needed ENDOCRINE: Maintain blood glucose between 100-180 at all times. Hypoglycemia protocol in place INFECTIOUS DISEASE: Trend temperature, WBC and procalcitonin level Follow cultures, deescalate antibiotics as soon as possible. Panculture if new onset fever ONCOLOGY/HEMATOLOGY/COAGULATION: Monitor for s/s of bleeding Monitor hemoglobin, coagulation studies as needed SKIN: Pressure ulcer prevention per facility protocol Specialty mattress ORTHO/REHAB: Continue PT/OT Prophylaxis: Continue GI and DVT prophylaxis Code Status: Full Resuscitation Disposition: TBD Other: Critical care time spent with patient 35 minutes Case discussed with supervising physician plan of care agreed upon GUZMAN DAVIS [facility] Jun 10, 2024 17:31
--- NOTE | 2024-06-10 18:27 | NUR ---
PT HAS BEEN DOING WELL AFTER ERCP AND B/P BETTER AFTER HYDRALAZINE WAS GIVEN FOR SBP OF 205. MED EFFECT WAS SBP OF 160.
[2024-06-10] MEDS ORDERED: PHARMACY COMMUNICATION MISC SCH (18:30)
[2024-06-10] MEDS: INSULIN humuLIN R 100 UNIT/ML 3ML SQ SCH (20:02)
--- NOTE | 2024-06-10 23:02 | NUR ---
Pt transferred to room 326 at this time. Karson HARDEN given report beforehand with all questions answered. All belongings collected by family member at bedside and room checked. IV checked. Pt and family with no questions. Pt status wdl.
[2024-06-11] VITALS (8 sets, daily range): BP systolic 127–158; BP diastolic 57–70; PULSE 66–75; RESP 18–20; TEMP 97.5–98.6; O2SAT 94–98
[2024-06-11 05:11] LABS: BASOPHILS # (AUTO) 0.03 K/uL (0.00-0.20); BASOPHILS % (AUTO) 0.8 % (0.0-5.0); EOSINOPHILS # (AUTO) 0.08 K/uL (0.00-0.70); EOSINOPHILS % (AUTO) 2.1 % (0.0-8.0); IMMATURE GRANULOCYTE ABSOLUTE 0.01 K/uL (0-1); LYMPHOCYTES # (AUTO) 1.4 K/uL (1.0-4.8); MEAN CORPUSCULAR HEMOGLOBIN 29.2 pg (27.0-33.0); MEAN CORPUSCULAR HGB CONC 33.3 g/dL (32.0-36.0); MEAN CORPUSCULAR VOLUME 87.6 fL (79-99); MONOCYTES # (AUTO) 0.4 K/uL (0.1-1.0); MONOCYTES % (AUTO) 11.5 % (3.0-13.0); NEUTROPHILS # (AUTO) 1.8 K/uL (1.8-7.7); NEUTROPHILS % (AUTO) 48.3 % (40.0-77.0); PLATELET COUNT (AUTO) 172 K/uL (130-400); RED BLOOD CELL COUNT(AUTO) 4.11 MIL/uL (4.00-5.50); RED CELL DISTRIBUTION WIDTH 12.9 % (11.0-15.5); WHITE BLOOD COUNT (AUTO) 3.7 K/uL (4.8-10.8)
[2024-06-11 05:53] LABS: ALBUMIN 2.7 g/dL (3.5-5.0); BILIRUBIN,TOTAL 1.8 mg/dL (0.2-1.0); CREATININE 0.7 mg/dL (0.5-1.0); POTASSIUM 3.9 mmol/L (3.5-5.1); TOTAL PROTEIN, SERUM 6.4 g/dL (6.0-8.3)
--- NOTE | 2024-06-11 10:15 | PN ---
GASTROENTEROLOGY PROGRESS NOTE Date of Visit: Jun 11, 2024 Time of Visit: 10:15 Events / Notes: No acute events overnight. Review of Systems: CONSTITUTIONAL: No malaise or change in sensation of wellbeing. ENMT: No rhinorrhea, otorrhea, sinus pain, ear ache. CARDIOVASCULAR: No angina, palpitations, orthopnea or paroxysmal dyspnea. RESPIRATORY: No SOB. GASTROINTESTINAL: No abdominal pain, nausea, vomiting, diarrhea, hematemesis, melena or change in the patient's habitual bowel movements consistency/number. GENITOURINARY: No dysuria, hematuria or change in bladder continence. MUSCULOSKELETAL: No new muscle pain or decrease in muscular strength. No new joint swelling, redness or tenderness. SKIN: No new rash. Physical Exam: GEN: Awake, alert, oriented in person, time and place, and in no acute distress. HEENT: No sinus tenderness. Tympanic membranes were not examined. No rhinorrhea. Oral pharyngeal mucosa is pink, moist and within normal limits. Neck is supple with no cervical lymphadenopathy, thyromegaly or JVD. CHEST: Inspection, palpation and percussion of the chest were unremarkable. Lung auscultation revealed normal breath sounds bilaterally. CARDIAC: PMI is within normal limits. Heart sounds are regular. Normal S1, S2. No gallop or murmur. ABD: Soft, non-tender and not distended. No peritoneal signs on palpation. No organomegaly. Normal bowel sounds. EXT: No cyanosis or clubbing. No edema. SKIN: Intact. No rashes. JOINTS: No evidence of synovitis or acute arthritis. NEURO: Alert and oriented to name, place and person. Cranial nerve examination is unremarkable. No focal motor deficits. Normal speech. Gait is normal. Strength is normal. Vital Signs (last 8hr) Date Time Temp Pulse Resp B/P (MAP) Pulse Ox O2 Delivery O2 Flow Rate FiO2 06/11/24 08:00 98.6 67 18 156/70 95 Room Air 21 06/11/24 04:00 97.9 66 19 148/67 98 Room Air Laboratory: [ ] Laboratory: Test 06/11/24 05:15 06/11/24 04:56 Range/Units Whole Blood Glucose 91 70-110 MG/DL White Blood Count 3.7 L 4.8-10.8 K/uL Red Blood Count 4.11 4.00-5.50 MIL/uL Hemoglobin 12.0 12.0-16.0 g/dL Hematocrit 36.0 36-48 % Mean Corpuscular Volume 87.6 79-99 fL Mean Corpuscular Hemoglobin 29.2 27.0-33.0 pg Mean Corpuscular Hemoglobin Concent 33.3 32.0-36.0 g/dL Red Cell Distribution Width 12.9 11.0-15.5 % Platelet Count 172 130-400 K/uL Mean Platelet Volume 10.4 7.5-10.5 fL Immature Granulocyte % (Auto) 0.3 0-1 % Neutrophils (%) (Auto) 48.3 40.0-77.0 % Lymphocytes (%) (Auto) 37.0 21.0-51.0 % Monocytes (%) (Auto) 11.5 3.0-13.0 % Eosinophils (%) (Auto) 2.1 0.0-8.0 % Basophils (%) (Auto) 0.8 0.0-5.0 % Neutrophils # (Auto) 1.8 1.8-7.7 K/uL Lymphocytes # (Auto) 1.4 1.0-4.8 K/uL Monocytes # (Auto) 0.4 0.1-1.0 K/uL Eosinophils # (Auto) 0.08 0.00-0.70 K/uL Basophils # (Auto) 0.03 0.00-0.20 K/uL Absolute Immature Granulocyte (auto 0.01 0-1 K/uL Nucleated Red Blood Cells 0.0 0.0-0.19 % Sodium Level 140 136-145 mmol/L Potassium Level 3.9 3.5-5.1 mmol/L Chloride Level 105 101-111 mmol/L Carbon Dioxide Level 26 21-32 mmol/L Blood Urea Nitrogen 11 7-18 mg/dL Creatinine 0.7 0.5-1.0 mg/dL Glomerular Filtration Rate Calc 86 >90 mL/min Random Glucose 100 70-105 mg/dL Total Calcium 8.7 8.5-10.1 mg/dL Total Bilirubin 1.8 H 0.2-1.0 mg/dL Aspartate Amino Transf (AST/SGOT) 70 H 10-37 U/L Alanine Aminotransferase (ALT/SGPT) 170 H 12-78 U/L Alkaline Phosphatase 288 H 50-136 U/L Total Protein 6.4 6.0-8.3 g/dL Albumin 2.7 L 3.5-5.0 g/dL Lipase 39 16-77 U/L Procalcitonin 1.22 H 0.05-0.5 ng/mL Current Medications Medications (Trade) Dose Ordered Sig/Jair Route PRN Reason Start Time Stop Time Status Last Admin Dose Admin Albuterol (DUOneb) 1 udvial [id number] PRN IH SOB/WHEEZE 06/06/24 22:30 07/06/24 22:29 Cefepime HCl (MAXipime 1 GM vial) 1 gm Q12H IVPB 06/07/24 02:00 06/07/24 13:54 DC 06/07/24 13:33 1 GM Cefepime HCl (MAXipime 2 gm vial) 2 gm Q12H IVPB 06/07/24 14:30 06/07/24 14:03 DC Cefepime HCl (MAXipime 2 gm vial) 2 gm Q12H IVPB 06/07/24 21:00 06/17/24 20:59 06/10/24 19:48 2 GM Dextrose (D50w) 50 ml AD PRN IV HYPOGLYCEMIA PROTOCOL 06/06/24 22:30 07/06/24 22:29 Diphenhydramine HCl (BENAdryl CAP) 25 mg Q6H6 PRN PO SLEEP 06/09/24 20:00 07/09/24 19:59 06/09/24 21:39 25 MG Enoxaparin Sodium (Lovenox) 30 mg DAILY SQ 06/07/24 09:00 07/07/24 08:59 06/09/24 08:16 30 MG Glucagon (Glucagon 1mg Kit) 1 mg AD PRN IM HYPOGLYCEMIA PROTOCOL 06/06/24 22:30 07/06/24 22:29 Hydralazine HCl (APRESOLine 20MG INJ) 10 mg Q6H PRN IV ADMINISTER FOR SBP > 170 06/10/24 00:30 07/10/24 00:29 06/10/24 15:20 10 MG Insulin Human Regular (humuLIN R 100 UNIT/ML 3ML) INSULIN SLIDING SCAL... ACHS SQ 06/10/24 21:00 07/07/24 00:00 Insulin Human Regular (humuLIN R 100 UNIT/ML 3ML) INSULIN SLIDING SCAL... Q6H6 SQ 06/07/24 00:00 06/10/24 18:32 DC 06/10/24 18:17 3 UNIT Lactated Ringer's 1,000 ml @ 100 mls/hr Q10H IV 06/09/24 14:30 06/12/24 14:29 06/10/24 19:52 100 MLS/HR Lisinopril (Prinivil 10mg) 10 mg DAILY PO 06/08/24 09:00 07/08/24 08:59 06/10/24 15:18 10 MG Magnesium Sulfate 50 ml @ 0 mls/hr PROTOCOL PRN IV MAGNESIUM PROTOCOL 06/06/24 22:30 07/06/24 22:29 06/07/24 02:27 25 MLS/HR Melatonin (Melatonin) 5 mg ONCE PO 06/08/24 19:30 06/08/24 19:28 DC Pantoprazole Sodium (PROTonix 40MG INJ) 40 mg DAILY IVP 06/07/24 09:00 07/07/24 08:59 06/10/24 08:37 40 MG Pharmacy Profile Note (Pharmacy Communication) 1 each ONCE MISC 06/10/24 18:30 06/10/24 18:36 DC Potassium Chloride 100 ml @ 100 mls/hr AD PRN IV POTASSIUM PROTOCOL 06/06/24 22:30 07/06/24 22:29 06/07/24 06:27 100 MLS/HR Potassium Chloride 100 ml @ 100 mls/hr AD PRN IV POTASSIUM PROTOCOL 06/07/24 14:00 07/07/24 13:59 06/10/24 05:58 100 MLS/HR Potassium Chloride (K-Dur/Klor-Con 20meq) 20 meq AD PRN PO POTASSIUM PROTOCOL 06/07/24 14:00 07/07/24 13:59 Potassium Chloride (KCl 10% Elixir 20meq/15ml) 20 meq AD PRN PO POTASSIUM PROTOCOL 06/07/24 14:00 07/07/24 13:59 06/07/24 17:06 20 MEQ Vancomycin HCl 250 ml @ 125 mls/hr Q24H IV 06/07/24 20:30 06/07/24 13:54 DC Vancomycin HCl (Vancomycin Protocol) 1 each AD IV 06/06/24 23:00 06/08/24 07:43 DC Diagnostics / Radiology: [COPY/PASTE HERE IF NO REPORTS PLEASE DELETE SECTION] Assessment: Abnormal LFTs Cholelithiasis HTN Plan: Continue GI prophylaxis Avoid NSAIDs Antireflux measures Monitor H&H and transfuse as needed Call with questions, concerns or change in clinical status Patient to follow-up at clinic post discharge Thank you for this consult SOO DOOLEY ASSISTANT PROFESSOR OF PHILOSOPHY Jun 11, 2024 10:15
--- NOTE | 2024-06-11 11:44 | PN ---
[facility] PROGRESS NOTE Date Patient Seen: Jun 11, 2024 Time of Visit: 11:42 Supervising Physician: ETELVINA GRIDER MD Primary Care Physician: [Dr. Cintia Menard] Outpatient Specialists: [ ] Inpatient Consults: GI , GENERAL SURGERY PROBLEM LIST: Severe sepsis- with organ failure: liver and respiratory secondary to bacteremia POA Gram negative bacteremia -- E-Coli POA Choledocholithiasis S/p ERCP on 06/10/24 Cholelithiasis Lactic acidosis-POA Hepatic transaminitis-POA Hyperglycemia without diabetes diagnosis-POA Hyperbilirubinemia-POA Primary HTN HLD GERD Dementia Fatty liver Legally blind Cataract Glaucoma PLAN: consult general surgery Post ERCP care Repeat labs in a.m including lipase Continue Cefepime every 8 hours IV fluids resuscitation Blood culture with E coli Advance diet as tolerated Replace electrolytes protocol INTERVAL HISTORY: Patient was seen and examined today by me, the from ICU. She is post ERCP. Liver enzymes are trending down. AST is at 70, ALT 170, alk-phos at 288, total bilirubin now down to 1.8 from a peak of 6.4. At this time we will proceed with consulting General surgery for further management of her choledocholithiasis. She is tolerating a GI soft bland diet. Continues on cefepime. REVIEW OF SYSTEMS: 12 point ROS reviewed with patient. Pertinent positives mentioned above. Othe rwise negative. PHYSICAL EXAM: GENERAL: alert, weak, awake oriented x 3 HEENT: EOMI, Sclera non icteric, moist mucosa NECK: Supple, no JVD, trachea midline LUNGS: Clear breath sounds bilaterally. No wheezes HEART: Regular rate and rhythm. Normal S1 and S2, without murmurs ABD: Abdomen soft, nontender. Bowel sounds present EXT: No clubbing cyanosis or edema NEURO: Alert and oriented to person, follows commands Vital Signs (last 8hr) Date Time Temp Pulse Resp B/P (MAP) Pulse Ox O2 Delivery O2 Flow Rate FiO2 06/11/24 08:00 98.6 67 18 156/70 95 Room Air 21 06/11/24 04:00 97.9 66 19 148/67 98 Room Air LABS: Hematology Labs: Test 06/11/24 04:56 Range/Units White Blood Count 3.7 L 4.8-10.8 K/uL Red Blood Count 4.11 4.00-5.50 MIL/uL Hemoglobin 12.0 12.0-16.0 g/dL Hematocrit 36.0 36-48 % Mean Corpuscular Volume 87.6 79-99 fL Mean Corpuscular Hemoglobin 29.2 27.0-33.0 pg Mean Corpuscular Hemoglobin Concent 33.3 32.0-36.0 g/dL Red Cell Distribution Width 12.9 11.0-15.5 % Platelet Count 172 130-400 K/uL Mean Platelet Volume 10.4 7.5-10.5 fL Immature Granulocyte % (Auto) 0.3 0-1 % Neutrophils (%) (Auto) 48.3 40.0-77.0 % Lymphocytes (%) (Auto) 37.0 21.0-51.0 % Monocytes (%) (Auto) 11.5 3.0-13.0 % Eosinophils (%) (Auto) 2.1 0.0-8.0 % Basophils (%) (Auto) 0.8 0.0-5.0 % Neutrophils # (Auto) 1.8 1.8-7.7 K/uL Lymphocytes # (Auto) 1.4 1.0-4.8 K/uL Monocytes # (Auto) 0.4 0.1-1.0 K/uL Eosinophils # (Auto) 0.08 0.00-0.70 K/uL Basophils # (Auto) 0.03 0.00-0.20 K/uL Absolute Immature Granulocyte (auto 0.01 0-1 K/uL Nucleated Red Blood Cells 0.0 0.0-0.19 % Chemistry Labs: Test 06/11/24 05:15 06/11/24 04:56 Range/Units Whole Blood Glucose 91 70-110 MG/DL Sodium Level 140 136-145 mmol/L Potassium Level 3.9 3.5-5.1 mmol/L Chloride Level 105 101-111 mmol/L Carbon Dioxide Level 26 21-32 mmol/L Blood Urea Nitrogen 11 7-18 mg/dL Creatinine 0.7 0.5-1.0 mg/dL Glomerular Filtration Rate Calc 86 >90 mL/min Random Glucose 100 70-105 mg/dL Total Calcium 8.7 8.5-10.1 mg/dL Total Bilirubin 1.8 H 0.2-1.0 mg/dL Aspartate Amino Transf (AST/SGOT) 70 H 10-37 U/L Alanine Aminotransferase (ALT/SGPT) 170 H 12-78 U/L Alkaline Phosphatase 288 H 50-136 U/L Total Protein 6.4 6.0-8.3 g/dL Albumin 2.7 L 3.5-5.0 g/dL Lipase 39 16-77 U/L Procalcitonin 1.22 H 0.05-0.5 ng/mL DIAGNOSTICS / RADIOLOGY RESULTS: [ ] PLAN NEURO: Minimize central acting medications as possible. Maintain fall precautions, adequate lighting during the day PULMONARY: Supplemental 02 as needed. Maintain aspiration precautions at all times CARDIOVASCULAR: Follow hemodynamics. Vital signs per facility protocol GI & NUTRITION: Continue with nutritional support. Continue stool softeners and laxatives as needed. General surgery consultation KIDNEYS & ELECTROLYTES: Strict monitoring of intake, output and overall fluid balance. Avoid nephrotoxic medications to the extent possible. Medications to be dosed according to renal function. Monitor electrolytes and replace as needed ENDOCRINE: Maintain blood glucose between 100-180 at all times. Hypoglycemia protocol in place INFECTIOUS DISEASE: Trend temperature, WBC and procalcitonin level Follow cultures, deescalate antibiotics as soon as possible. Panculture if new onset fever ONCOLOGY/HEMATOLOGY/COAGULATION: Monitor for s/s of bleeding Monitor hemoglobin, coagulation studies as needed SKIN: Pressure ulcer prevention per facility protocol Specialty mattress ORTHO/REHAB: Continue PT/OT Prophylaxis: Continue GI and DVT prophylaxis Code Status: Full Resuscitation Disposition: TBD Other: Critical care time spent with patient 35 minutes Case discussed with supervising physician plan of care agreed upon ARY AVILA Jun 11, 2024 11:44
--- NOTE | 2024-06-11 14:02 | NUR ---
[facility] Consult: Patient post/op, per primary nurse, patient with no open wounds. Addendum: 06/11/24 at 1403 by DWAYNE PARKS RN RN/EVERETT Amended: Links added.
[2024-06-12] VITALS (7 sets, daily range): BP systolic 120–166; BP diastolic 58–75; PULSE 67–84; RESP 16–20; TEMP 97.6–98.4; O2SAT 98
[2024-06-12 05:38] LABS: BASOPHILS # (AUTO) 0.03 K/uL (0.00-0.20); BASOPHILS % (AUTO) 0.9 % (0.0-5.0); EOSINOPHILS # (AUTO) 0.09 K/uL (0.00-0.70); EOSINOPHILS % (AUTO) 2.6 % (0.0-8.0); HEMATOCRIT 36.2 % (36-48); IMMATURE GRANULOCYTE ABSOLUTE 0.02 K/uL (0-1); LYMPHOCYTES # (AUTO) 1.5 K/uL (1.0-4.8); LYMPHOCYTES % (AUTO) 42.7 % (21.0-51.0); MEAN CORPUSCULAR HEMOGLOBIN 29.7 pg (27.0-33.0); MEAN CORPUSCULAR VOLUME 87.4 fL (79-99); MONOCYTES # (AUTO) 0.4 K/uL (0.1-1.0); NEUTROPHILS # (AUTO) 1.4 K/uL (1.8-7.7); NEUTROPHILS % (AUTO) 41.2 % (40.0-77.0); PLATELET COUNT (AUTO) 186 K/uL (130-400); RED BLOOD CELL COUNT(AUTO) 4.14 MIL/uL (4.00-5.50); RED CELL DISTRIBUTION WIDTH 12.9 % (11.0-15.5); WHITE BLOOD COUNT (AUTO) 3.4 K/uL (4.8-10.8)
[2024-06-12 05:45] LABS: INR 1.03 (0.85-1.15); PROTHROMBIN TIME 11.1 SEC (9.6-11.6)
[2024-06-12 06:04] LABS: BILIRUBIN,DIRECT 0.8 mg/dL (0.0-0.3); BILIRUBIN,TOTAL 1.4 mg/dL (0.2-1.0); CREATININE 0.6 mg/dL (0.5-1.0); POTASSIUM 3.7 mmol/L (3.5-5.1); TOTAL PROTEIN, SERUM 6.6 g/dL (6.0-8.3)
--- NOTE | 2024-06-12 10:43 | CONS ---
CONSULT NOTE: Consulting physician: Nannette Consulting service: General surgery Reason for consultation: Choledocholithiasis History of present illness: This 73-year-old female with a medical history noted below who has been co nsulted to surgery after initially presenting to the hospital with concerns of respiratory symptoms with phlegm and looking pale. Upon initial workup concerns for possible choledocholithiasis noted were appropriate workup was performed. Patient yesterday was taken for ERCP or stones were removed. Patient is now seen in her room resting comfortably with no acute concerns reported. Patient however has had breakfast this morning. WBCs unremarkable. Total bilirubin trending down. Patient otherwise stable Medical history: Hypertension Hyperlipidemia Dementia Surgical history: Review of systems: General: No Fever, No Chills, No Night Sweats, No Fatigue, No Malaise, No Appetite, No Other HEENT: No Head Aches, No Visual Changes, No Eye Pain, No Ear Pain, No Dysphasia, No Sinus Congestion, No Post Nasal Drip, No Sore Throat, No Other Pulmonary: No Dyspnea, No Cough, No Pleuritic Chest Pain, No Other Cardiovascular: No: Chest Pain, Palpitations, Orthopnea, Paroxysmal No Dyspnea, Edema, Lt Headedness, Other Gastrointestinal: No: Nausea, Vomiting, Diarrhea, Constipation, Melena, Hematochezia, Other Genitourinary: No Dysuria, No Frequency, No Incontinence, No Hematuria, No Retention, No Other Musculoskeletal: No: other, neck pain, shoulder pain, arm pain, back pain, hand pain, leg pain, foot pain Skin: No Urticaria, No Rash, No Other Neurological: No: Weakness, Numbness, Incoordination, Change in speech, Confusion, Seizures, Other Physical exam: General: Awake alert and oriented Heart: Regular rate and rhythm} Lungs: Clear to auscultation no distress Abdomen: [Soft, nontender, nondistended Assessment: This is a 83-year-old female status post ERCP for choledocholithiasis Plan: This point in time we will recommend cardiac clearance before moving forward w ith surgical intervention With the patient is having diet today we will keep patient on diet and await for clearance over the weekend for possible surgical intervention Saturday or Saturday with Dr. Palomino Family has been made aware of plan and agrees Repeat lipase tomorrow Surgical team to follow patient closely nursing report any further acute events. Thank you JIMMY GATES Jr. Jun 12, 2024 10:43
--- NOTE | 2024-06-12 14:11 | PN ---
GASTROENTEROLOGY PROGRESS NOTE Date of Visit: Jun 12, 2024 Time of Visit: 14:11 Events / Notes: No acute events overnight. Review of Systems: CONSTITUTIONAL: No malaise or change in sensation of wellbeing. ENMT: No rhinorrhea, otorrhea, sinus pain, ear ache. CARDIOVASCULAR: No angina, palpitations, orthopnea or paroxysmal dyspnea. RESPIRATORY: No SOB. GASTROINTESTINAL: No abdominal pain, nausea, vomiting, diarrhea, hematemesis, melena or change in the patient's habitual bowel movements consistency/number. GENITOURINARY: No dysuria, hematuria or change in bladder continence. MUSCULOSKELETAL: No new muscle pain or decrease in muscular strength. No new joint swelling, redness or tenderness. SKIN: No new rash. Physical Exam: GEN: Awake, alert, oriented in person, time and place, and in no acute distress. HEENT: No sinus tenderness. Tympanic membranes were not examined. No rhinorrhea. Oral pharyngeal mucosa is pink, moist and within normal limits. Neck is supple with no cervical lymphadenopathy, thyromegaly or JVD. CHEST: Inspection, palpation and percussion of the chest were unremarkable. Lung auscultation revealed normal breath sounds bilaterally. CARDIAC: PMI is within normal limits. Heart sounds are regular. Normal S1, S2. No gallop or murmur. ABD: Soft, non-tender and not distended. No peritoneal signs on palpation. No organomegaly. Normal bowel sounds. EXT: No cyanosis or clubbing. No edema. SKIN: Intact. No rashes. JOINTS: No evidence of synovitis or acute arthritis. NEURO: Alert and oriented to name, place and person. Cranial nerve examination is unremarkable. No focal motor deficits. Normal speech. Gait is normal. Strength is normal. Vital Signs (last 8hr) Date Time Temp Pulse Resp B/P (MAP) Pulse Ox O2 Delivery O2 Flow Rate FiO2 06/12/24 11:00 98.4 68 16 155/75 98 Room Air 21 06/12/24 08:00 97.5 70 18 145/64 98 Room Air 21 Laboratory: [ ] Laboratory: Test 06/12/24 11:49 06/12/24 05:15 Range/Units Whole Blood Glucose 101 70-110 MG/DL Bedside Glucose Comment Notified Nurse White Blood Count 3.4 L 4.8-10.8 K/uL Red Blood Count 4.14 4.00-5.50 MIL/uL Hemoglobin 12.3 12.0-16.0 g/dL Hematocrit 36.2 36-48 % Mean Corpuscular Volume 87.4 79-99 fL Mean Corpuscular Hemoglobin 29.7 27.0-33.0 pg Mean Corpuscular Hemoglobin Concent 34.0 32.0-36.0 g/dL Red Cell Distribution Width 12.9 11.0-15.5 % Platelet Count 186 130-400 K/uL Mean Platelet Volume 10.1 7.5-10.5 fL Immature Granulocyte % (Auto) 0.6 0-1 % Neutrophils (%) (Auto) 41.2 40.0-77.0 % Lymphocytes (%) (Auto) 42.7 21.0-51.0 % Monocytes (%) (Auto) 12.0 3.0-13.0 % Eosinophils (%) (Auto) 2.6 0.0-8.0 % Basophils (%) (Auto) 0.9 0.0-5.0 % Neutrophils # (Auto) 1.4 L 1.8-7.7 K/uL Lymphocytes # (Auto) 1.5 1.0-4.8 K/uL Monocytes # (Auto) 0.4 0.1-1.0 K/uL Eosinophils # (Auto) 0.09 0.00-0.70 K/uL Basophils # (Auto) 0.03 0.00-0.20 K/uL Absolute Immature Granulocyte (auto 0.02 0-1 K/uL Nucleated Red Blood Cells 0.0 0.0-0.19 % Prothrombin Time 11.1 9.6-11.6 SEC Prothromb Time International Ratio 1.03 0.85-1.15 Sodium Level 142 136-145 mmol/L Potassium Level 3.7 3.5-5.1 mmol/L Chloride Level 106 101-111 mmol/L Carbon Dioxide Level 29 21-32 mmol/L Blood Urea Nitrogen 6 L 7-18 mg/dL Creatinine 0.6 0.5-1.0 mg/dL Glomerular Filtration Rate Calc 90 >90 mL/min Random Glucose 116 H 70-105 mg/dL Total Calcium 8.9 8.5-10.1 mg/dL Magnesium Level 2.00 1.80-2.40 mg/dL Total Bilirubin 1.4 H 0.2-1.0 mg/dL Direct Bilirubin 0.8 H 0.0-0.3 mg/dL Aspartate Amino Transf (AST/SGOT) 59 H 10-37 U/L Alanine Aminotransferase (ALT/SGPT) 133 H 12-78 U/L Alkaline Phosphatase 289 H 50-136 U/L Total Protein 6.6 6.0-8.3 g/dL Albumin 3.0 L 3.5-5.0 g/dL Lipase 41 16-77 U/L Procalcitonin 0.62 H 0.05-0.5 ng/mL Current Medications Medications (Trade) Dose Ordered Sig/Jair Route PRN Reason Start Time Stop Time Status Last Admin Dose Admin Albuterol (DUOneb) 1 udvial [id number] PRN IH SOB/WHEEZE 06/06/24 22:30 07/06/24 22:29 Cefepime HCl (MAXipime 1 GM vial) 1 gm Q12H IVPB 06/07/24 02:00 06/07/24 13:54 DC 06/07/24 13:33 1 GM Cefepime HCl (MAXipime 2 gm vial) 2 gm Q12H IVPB 06/07/24 14:30 06/07/24 14:03 DC Cefepime HCl (MAXipime 2 gm vial) 2 gm Q12H IVPB 06/07/24 21:00 06/17/24 20:59 06/12/24 09:56 2 GM Dextrose (D50w) 50 ml AD PRN IV HYPOGLYCEMIA PROTOCOL 06/06/24 22:30 07/06/24 22:29 Diphenhydramine HCl (BENAdryl CAP) 25 mg Q6H6 PRN PO SLEEP 06/09/24 20:00 07/09/24 19:59 06/11/24 23:08 25 MG Enoxaparin Sodium (Lovenox) 30 mg DAILY SQ 06/07/24 09:00 07/07/24 08:59 06/11/24 11:20 30 MG Glucagon (Glucagon 1mg Kit) 1 mg AD PRN IM HYPOGLYCEMIA PROTOCOL 06/06/24 22:30 07/06/24 22:29 Hydralazine HCl (APRESOLine 20MG INJ) 10 mg Q6H PRN IV ADMINISTER FOR SBP > 170 06/10/24 00:30 07/10/24 00:29 06/10/24 15:20 10 MG Insulin Human Regular (humuLIN R 100 UNIT/ML 3ML) INSULIN SLIDING SCAL... ACHS SQ 06/10/24 21:00 07/07/24 00:00 Insulin Human Regular (humuLIN R 100 UNIT/ML 3ML) INSULIN SLIDING SCAL... Q6H6 SQ 06/07/24 00:00 06/10/24 18:32 DC 06/10/24 18:17 3 UNIT Lactated Ringer's 1,000 ml @ 100 mls/hr Q10H IV 06/09/24 14:30 06/12/24 14:29 06/10/24 19:52 100 MLS/HR Lisinopril (Prinivil 10mg) 10 mg DAILY PO 06/08/24 09:00 07/08/24 08:59 06/12/24 09:56 10 MG Magnesium Sulfate 50 ml @ 0 mls/hr PROTOCOL PRN IV MAGNESIUM PROTOCOL 06/06/24 22:30 07/06/24 22:29 06/07/24 02:27 25 MLS/HR Melatonin (Melatonin) 5 mg ONCE PO 06/08/24 19:30 06/08/24 19:28 DC Pantoprazole Sodium (PROTonix 40MG INJ) 40 mg DAILY IVP 06/07/24 09:00 07/07/24 08:59 06/12/24 09:55 40 MG Pharmacy Profile Note (Pharmacy Communication) 1 each ONCE MISC 06/10/24 18:30 06/10/24 18:36 DC Potassium Chloride 100 ml @ 100 mls/hr AD PRN IV POTASSIUM PROTOCOL 06/06/24 22:30 07/06/24 22:29 06/07/24 06:27 100 MLS/HR Potassium Chloride 100 ml @ 100 mls/hr AD PRN IV POTASSIUM PROTOCOL 06/07/24 14:00 07/07/24 13:59 06/10/24 05:58 100 MLS/HR Potassium Chloride (K-Dur/Klor-Con 20meq) 20 meq AD PRN PO POTASSIUM PROTOCOL 06/07/24 14:00 07/07/24 13:59 Potassium Chloride (KCl 10% Elixir 20meq/15ml) 20 meq AD PRN PO POTASSIUM PROTOCOL 06/07/24 14:00 07/07/24 13:59 06/07/24 17:06 20 MEQ Vancomycin HCl 250 ml @ 125 mls/hr Q24H IV 06/07/24 20:30 06/07/24 13:54 DC Vancomycin HCl (Vancomycin Protocol) 1 each AD IV 06/06/24 23:00 06/08/24 07:43 DC Diagnostics / Radiology: [COPY/PASTE HERE IF NO REPORTS PLEASE DELETE SECTION] Assessment: Abnormal LFTs Cholelithiasis HTN Plan: Continue GI prophylaxis Avoid NSAIDs Antireflux measures Monitor H&H and transfuse as needed Call with questions, concerns or change in clinical status Patient to follow-up at clinic post discharge Thank you for this consult SOO DOOLEY PASTRY COOK APPRENTICE Jun 12, 2024 14:11
--- NOTE | 2024-06-12 16:35 | PN ---
[facility] PROGRESS NOTE Date Patient Seen: Jun 12, 2024 Time of Visit: 16:34 Supervising Physician: Isha Pepe MD Primary Care Physician: [Dr. Cintia Menard] Outpatient Specialists: [ ] Inpatient Consults: GI , GENERAL SURGERY PROBLEM LIST: Severe sepsis- with organ failure: liver and respiratory secondary to bacteremia POA Gram negative bacteremia -- E-Coli POA Choledocholithiasis S/p ERCP on 06/10/24 Cholelithiasis Lactic acidosis-POA Hepatic transaminitis-POA Hyperglycemia without diabetes diagnosis-POA Hyperbilirubinemia-POA Primary HTN HLD GERD Dementia Fatty liver Legally blind Cataract Glaucoma PLAN: Per General surgery: We will need cardiac clearance before moving forward with surgical intervention, surgical intervention likely for Saturday or Saturday with Post ERCP care Repeat labs in a.m including lipase Continue Cefepime every 8 hours IV fluids resuscitation Blood culture with E coli Advance diet as tolerated Replace electrolytes protocol Consult cardiology for cardiac clearance. INTERVAL HISTORY: 06/11- Patient was seen and examined today by me, the from ICU. She is post ERCP. Liver enzymes are trending down. AST is at 70, ALT 170, alk-phos at 288, total bilirubin now down to 1.8 from a peak of 6.4. At this time we will proceed with consulting General surgery for further management of her choledocholithiasis. She is tolerating a GI soft bland diet. Continues on cefepime. 06/12-Patient is awake alert and oriented x3 hemodynamically stable and afebrile. She has been tolerating bland diet well. Patient denies any abdominal pain, nausea, vomiting, and diarrhea. She denies any chills or fevers. She appears to be in good spirits. She was seen by General surgery who recommends cardiac clearance for possible surgery next week on Saturday or Saturday w/ Dr Palomino. CBC unremarkable. Procalcitonin trending down today 0.62. Chemistry kidneys are doing well creatinine 0.6 GFR of 90 glucose of 116 mg/dL total bili is 1.4, improving from admission which was 3.3. Liver enzymes co ntinue elevated but trending down. Albumin 3.0. REVIEW OF SYSTEMS: 12 point ROS reviewed with patient. Pertinent positives mentioned above. Otherwise negative. PHYSICAL EXAM: GENERAL: alert, weak, awake oriented x 3 HEENT: EOMI, Sclera non icteric, moist mucosa NECK: Supple, no JVD, trachea midline LUNGS: Clear breath sounds bilaterally. No wheezes HEART: Regular rate and rhythm. Normal S1 and S2, without murmurs ABD: Abdomen soft, nontender. Bowel sounds present EXT: No clubbing cyanosis or edema NEURO: Alert and oriented to person, follows commands Vital Signs (last 8hr) Date Time Temp Pulse Resp B/P (MAP) Pulse Ox O2 Delivery O2 Flow Rate FiO2 06/12/24 11:00 98.4 68 16 155/75 98 Room Air 21 LABS: Hematology Labs: Test 06/12/24 05:15 Range/Units White Blood Count 3.4 L 4.8-10.8 K/uL Red Blood Count 4.14 4.00-5.50 MIL/uL Hemoglobin 12.3 12.0-16.0 g/dL Hematocrit 36.2 36-48 % Mean Corpuscular Volume 87.4 79-99 fL Mean Corpuscular Hemoglobin 29.7 27.0-33.0 pg Mean Corpuscular Hemoglobin Concent 34.0 32.0-36.0 g/dL Red Cell Distribution Width 12.9 11.0-15.5 % Platelet Count 186 130-400 K/uL Mean Platelet Volume 10.1 7.5-10.5 fL Immature Granulocyte % (Auto) 0.6 0-1 % Neutrophils (%) (Auto) 41.2 40.0-77.0 % Lymphocytes (%) (Auto) 42.7 21.0-51.0 % Monocytes (%) (Auto) 12.0 3.0-13.0 % Eosinophils (%) (Auto) 2.6 0.0-8.0 % Basophils (%) (Auto) 0.9 0.0-5.0 % Neutrophils # (Auto) 1.4 L 1.8-7.7 K/uL Lymphocytes # (Auto) 1.5 1.0-4.8 K/uL Monocytes # (Auto) 0.4 0.1-1.0 K/uL Eosinophils # (Auto) 0.09 0.00-0.70 K/uL Basophils # (Auto) 0.03 0.00-0.20 K/uL Absolute Immature Granulocyte (auto 0.02 0-1 K/uL Nucleated Red Blood Cells 0.0 0.0-0.19 % Chemistry Labs: Test 06/12/24 11:49 06/12/24 05:15 Range/Units Whole Blood Glucose 101 70-110 MG/DL Bedside Glucose Comment Notified Nurse Sodium Level 142 136-145 mmol/L Potassium Level 3.7 3.5-5.1 mmol/L Chloride Level 106 101-111 mmol/L Carbon Dioxide Level 29 21-32 mmol/L Blood Urea Nitrogen 6 L 7-18 mg/dL Creatinine 0.6 0.5-1.0 mg/dL Glomerular Filtration Rate Calc 90 >90 mL/min Random Glucose 116 H 70-105 mg/dL Total Calcium 8.9 8.5-10.1 mg/dL Magnesium Level 2.00 1.80-2.40 mg/dL Total Bilirubin 1.4 H 0.2-1.0 mg/dL Direct Bilirubin 0.8 H 0.0-0.3 mg/dL Aspartate Amino Transf (AST/SGOT) 59 H 10-37 U/L Alanine Aminotransferase (ALT/SGPT) 133 H 12-78 U/L Alkaline Phosphatase 289 H 50-136 U/L Total Protein 6.6 6.0-8.3 g/dL Albumin 3.0 L 3.5-5.0 g/dL Lipase 41 16-77 U/L Procalcitonin 0.62 H 0.05-0.5 ng/mL Coagulation Labs: Test 06/12/24 05:15 Range/Units Prothrombin Time 11.1 9.6-11.6 SEC Prothromb Time International Ratio 1.03 0.85-1.15 DIAGNOSTICS / RADIOLOGY RESULTS: [ ] PLAN NEURO: Minimize central acting medications as possible. Maintain fall precautions, adequate lighting during the day PULMONARY: Supplemental 02 as needed. Maintain aspiration precautions at all times CARDIOVASCULAR: Follow hemodynamics. Vital signs per facility protocol GI & NUTRITION: Continue with nutritional support. Continue stool softeners and laxatives as needed. General surgery consultation KIDNEYS & ELECTROLYTES: Strict monitoring of intake, output and overall fluid balance. Avoid nephrotoxic medications to the extent possible. Medications to be dosed according to renal function. Monitor electrolytes and replace as needed ENDOCRINE: Maintain blood glucose between 100-180 at all times. Hypoglycemia protocol in place INFECTIOUS DISEASE: Trend temperature, WBC and procalcitonin level Follow cultures, deescalate antibiotics as soon as possible. Panculture if new onset fever ONCOLOGY/HEMATOLOGY/COAGULATION: Monitor for s/s of bleeding Monitor hemoglobin, coagulation studies as needed SKIN: Pressure ulcer prevention per facility protocol Specialty mattress ORTHO/REHAB: Continue PT/OT Prophylaxis: Continue GI and DVT prophylaxis Code Status: Full Resuscitation Disposition: TBD Other: Critical care time spent with patient 35 minutes Case discussed with supervising physician plan of care agreed upon PATRICIA HAMMONDS [facility] Jun 12, 2024 16:35
[2024-06-13] VITALS (9 sets, daily range): BP systolic 127–184; BP diastolic 71–73; PULSE 60–81; RESP 18–20; TEMP 97.2–98.1; O2SAT 98–100
[2024-06-13 05:24] LABS: BASOPHILS # (AUTO) 0.04 K/uL (0.00-0.20); EOSINOPHILS # (AUTO) 0.13 K/uL (0.00-0.70); EOSINOPHILS % (AUTO) 3.4 % (0.0-8.0); HEMATOCRIT 36.6 % (36-48); IMMATURE GRANULOCYTE ABSOLUTE 0.03 K/uL (0-1); LYMPHOCYTES # (AUTO) 2.1 K/uL (1.0-4.8); LYMPHOCYTES % (AUTO) 53.1 % (21.0-51.0); MEAN CORPUSCULAR HEMOGLOBIN 29.3 pg (27.0-33.0); MEAN CORPUSCULAR HGB CONC 32.8 g/dL (32.0-36.0); MEAN CORPUSCULAR VOLUME 89.5 fL (79-99); MONOCYTES # (AUTO) 0.5 K/uL (0.1-1.0); NEUTROPHILS # (AUTO) 1.1 K/uL (1.8-7.7); NEUTROPHILS % (AUTO) 28.7 % (40.0-77.0); PLATELET COUNT (AUTO) 180 K/uL (130-400); RED BLOOD CELL COUNT(AUTO) 4.09 MIL/uL (4.00-5.50); WHITE BLOOD COUNT (AUTO) 3.9 K/uL (4.8-10.8)
[2024-06-13 06:52] LABS: ALBUMIN 2.9 g/dL (3.5-5.0); CREATININE 0.7 mg/dL (0.5-1.0); TOTAL PROTEIN, SERUM 6.7 g/dL (6.0-8.3)
--- NOTE | 2024-06-13 09:55 | PN ---
[facility] PROGRESS NOTE Date Patient Seen: Jun 13, 2024 Time of Visit: 09:55 Supervising Physician: Kip hernandez MD Primary Care Physician: [Dr. Cintia Menard] Outpatient Specialists: [ ] Inpatient Consults: GI , GENERAL SURGERY PROBLEM LIST: Severe sepsis- with organ failure: liver and respiratory secondary to bacteremia POA Gram negative bacteremia -- E-Coli POA Choledocholithiasis S/p ERCP on 06/10/24 Cholelithiasis Lactic acidosis-POA Hepatic transaminitis-POA Hyperglycemia without diabetes diagnosis-POA Hyperbilirubinemia-POA Primary HTN HLD GERD Dementia Fatty liver Legally blind Cataract Glaucoma PLAN: Per General surgery: We will need cardiac clearance before moving forward with surgical intervention, surgical intervention likely for Saturday or Saturday with Post ERCP care Repeat labs in a.m including lipase Continue Cefepime every 8 hours GI soft diet Blood culture with E coli, on repaeta blood cultures negative. Replace electrolytes protocol Consult cardiology for cardiac clearance. 2D echo ekg INTERVAL HISTORY: 06/11- Patient was seen and examined today by me, the from ICU. She is post ERCP. Liver enzymes are trending down. AST is at 70, ALT 170, alk-phos at 288, total bilirubin now down to 1.8 from a peak of 6.4. At this time we will proceed with consulting General surgery for further management of her choledocholithiasis. She is tolerating a GI soft bland diet. Continues on cefepime. 06/12-Patient is awake alert and oriented x3 hemodynamically stable and afebrile. She has been tolerating bland diet well. Patient denies any abdominal pain, nausea, vomiting, and diarrhea. She denies any chills or f javier. She appears to be in good spirits. She was seen by General surgery who recommends cardiac clearance for possible surgery next week on Saturday or Saturday w/ Dr Palomino. CBC unremarkable. Procalcitonin trending down today 0.62. Chemistry kidneys are doing well creatinine 0.6 GFR of 90 glucose of 116 mg/dL total bili is 1.4, improving from admission which was 3.3. Liver enzymes continue elevated but trending down. Albumin 3.0. 06/13-patient is awake alert and oriented x3 as per RN no major overnight events. Patient denies any more abdominal pain and tolerating diet without any nausea or discomfort. She is currently hemodynamically stable slightly hypotensive as per primary nurse. Lisinopril increased to 20 mg daily and p.r.n. medication for hypotension. 2D echo and EKG ordered in preparation for cardiology evaluation for clearance. Otherwise CBC unremarkable, liver enzymes trending down on chemistry. We will await Cardiology eval. REVIEW OF SYSTEMS: 12 point ROS reviewed with patient. Pertinent positives mentioned above. Otherwise negative. PHYSICAL EXAM: GENERAL: alert, weak, awake oriented x 3 HEENT: EOMI, Sclera non icteric, moist mucosa NECK: Supple, no JVD, trachea midline LUNGS: Clear breath sounds bilaterally. No wheezes HEART: Regular rate and rhythm. Normal S1 and S2, without murmurs ABD: Abdomen soft, nontender. Bowel sounds present EXT: No clubbing cyanosis or edema NEURO: Alert and oriented to person, follows commands Vital Signs (last 8hr) Date Time Temp Pulse Resp B/P (MAP) Pulse Ox O2 Delivery O2 Flow Rate FiO2 06/13/24 08:00 97.9 65 18 184/73 98 Room Air 21 06/13/24 04:00 97.3 60 20 158/72 96 Room Air LABS: Hematology Labs: Test 06/13/24 05:08 Range/Units White Blood Count 3.9 L 4.8-10.8 K/uL Red Blood Count 4.09 4.00-5.50 MIL/uL Hemoglobin 12.0 12.0-16.0 g/dL Hematocrit 36.6 36-48 % Mean Corpuscular Volume 89.5 79-99 fL Mean Corpuscular Hemoglobin 29.3 27.0-33.0 pg Mean Corpuscular Hemoglobin Concent 32.8 32.0-36.0 g/dL Red Cell Distribution Width 13.0 11.0-15.5 % Platelet Count 180 130-400 K/uL Mean Platelet Volume 10.0 7.5-10.5 fL Immature Granulocyte % (Auto) 0.8 0-1 % Neutrophils (%) (Auto) 28.7 L 40.0-77.0 % Lymphocytes (%) (Auto) 53.1 H 21.0-51.0 % Monocytes (%) (Auto) 13.0 3.0-13.0 % Eosinophils (%) (Auto) 3.4 0.0-8.0 % Basophils (%) (Auto) 1.0 0.0-5.0 % Neutrophils # (Auto) 1.1 L 1.8-7.7 K/uL Lymphocytes # (Auto) 2.1 1.0-4.8 K/uL Monocytes # (Auto) 0.5 0.1-1.0 K/uL Eosinophils # (Auto) 0.13 0.00-0.70 K/uL Basophils # (Auto) 0.04 0.00-0.20 K/uL Absolute Immature Granulocyte (auto 0.03 0-1 K/uL Nucleated Red Blood Cells 0.0 0.0-0.19 % Chemistry Labs: Test 06/13/24 05:20 06/13/24 05:08 06/12/24 17:45 06/12/24 05:15 Range/Units Whole Blood Glucose 105 70-110 MG/DL Sodium Level 144 136-145 mmol/L Potassium Level 4.0 3.5-5.1 mmol/L Chloride Level 107 101-111 mmol/L Carbon Dioxide Level 28 21-32 mmol/L Blood Urea Nitrogen 9 7-18 mg/dL Creatinine 0.7 0.5-1.0 mg/dL Glomerular Filtration Rate Calc 86 >90 mL/min Random Glucose 108 H 70-105 mg/dL Total Calcium 9.0 8.5-10.1 mg/dL Total Bilirubin 1.0 # 0.2-1.0 mg/dL Aspartate Amino Transf (AST/SGOT) 53 H 10-37 U/L Alanine Aminotransferase (ALT/SGPT) 128 H 12-78 U/L Alkaline Phosphatase 276 H 50-136 U/L Total Protein 6.7 6.0-8.3 g/dL Albumin 2.9 L 3.5-5.0 g/dL Lipase 38 16-77 U/L Procalcitonin 0.34 0.05-0.5 ng/mL Bedside Glucose Comment Notified Nurse Magnesium Level 2.00 1.80-2.40 mg/dL Direct Bilirubin 0.8 H 0.0-0.3 mg/dL Coagulation Labs: Test 06/12/24 05:15 Range/Units Prothrombin Time 11.1 9.6-11.6 SEC Prothromb Time International Ratio 1.03 0.85-1.15 DIAGNOSTICS / RADIOLOGY RESULTS: [ ] PLAN NEURO: Minimize central acting medications as possible. Maintain fall precautions, adequate lighting during the day PULMONARY: Supplemental 02 as needed. Maintain aspiration precautions at all times CARDIOVASCULAR: Follow hemodynamics. Vital signs per facility protocol GI & NUTRITION: Continue with nutritional support. Continue stool softeners and laxatives as needed. General surgery consultation KIDNEYS & ELECTROLYTES: Strict monitoring of intake, output and overall fluid balance. Avoid nephrotoxic medications to the extent possible. Medications to be dosed according to renal function. Monitor electrolytes and replace as needed ENDOCRINE: Maintain blood glucose between 100-180 at all times. Hypoglycemia protocol in place INFECTIOUS DISEASE: Trend temperature, WBC and procalcitonin level Follow cultures, deescalate antibiotics as soon as possible. Panculture if new onset fever ONCOLOGY/HEMATOLOGY/COAGULATION: Monitor for s/s of bleeding Monitor hemoglobin, coagulation studies as needed SKIN: Pressure ulcer prevention per facility protocol Specialty mattress ORTHO/REHAB: Continue PT/OT Prophylaxis: Continue GI and DVT prophylaxis Code Status: Full Resuscitation Disposition: TBD Other: Critical care time spent with patient 35 minutes Case discussed with supervising physician plan of care agreed upon PATRICIA HAMMONDS COL[employer]OR [employer] Jun 13, 2024 09:55
--- NOTE | 2024-06-13 10:00 | NUR ---
IV GOT INFILTRATED. PLACED A 18G ON LEFT FOREARM. PIV PATENT, NO ERYTHEMA OR EDEMA NOTED ON SURROUNDING AREA.
--- NOTE | 2024-06-13 11:30 | NUR ---
BLOOD GLUCOSE 118. NO INSULIN COVERAGE NEEDED AT THIS TIME.
--- NOTE | 2024-06-13 16:30 | NUR ---
BLOOD GLUCOSE 127. NO INSULIN COVERAGE NEEDED AT THIS TIME.
--- NOTE | 2024-06-13 19:18 | EKG ---
[facility] Test Date: 2024-06-13 Test Time: 19:15:20 Pat Name: RUBIN RICE Department: [facility] Room: 326 1 Gender: F Project Facilitator: michael [id number] : 1940 Requested By: PATRICIA HAMMONDS Order Number: [id number] Reading MD: Gayle Sotelo Measurements Intervals [place] Rate: 68 P: 54 CT: 176 QRS: 16 QRSD: 134 T: 127 QT: 452 QTc: 480 Interpretive Statements Normal sinus rhythm Nonspecific intraventricular block Cannot rule out Anterior infarct , age undetermined T wave abnormality, consider lateral ischemia Compared to ECG 12/05/2023 11:36:50 Myocardial infarct finding now present T-wave abnormality now present Possible ischemia now present Left bundle-branch block no longer present Intraventricular conduction delay no longer present ST (T wave) deviation no longer present Electronically Signed On 06-14-2024 08:20:52 ASSISTED LIVING ADMINISTRATOR by Gayle Sotelo Please click the below link to view image of tracing.
[2024-06-14] VITALS (7 sets, daily range): BP systolic 130–162; BP diastolic 60–74; PULSE 65–92; RESP 18–20; TEMP 97.5–98.2; O2SAT 95
[2024-06-14 05:59] LABS: BASOPHILS # (AUTO) 0.03 K/uL (0.00-0.20); BASOPHILS % (AUTO) 0.8 % (0.0-5.0); EOSINOPHILS # (AUTO) 0.09 K/uL (0.00-0.70); EOSINOPHILS % (AUTO) 2.4 % (0.0-8.0); HEMATOCRIT 36.7 % (36-48); IMMATURE GRANULOCYTE ABSOLUTE 0.03 K/uL (0-1); LYMPHOCYTES # (AUTO) 1.7 K/uL (1.0-4.8); LYMPHOCYTES % (AUTO) 45.4 % (21.0-51.0); MEAN CORPUSCULAR HEMOGLOBIN 29.7 pg (27.0-33.0); MEAN CORPUSCULAR HGB CONC 33.5 g/dL (32.0-36.0); MEAN CORPUSCULAR VOLUME 88.6 fL (79-99); MONOCYTES # (AUTO) 0.4 K/uL (0.1-1.0); MONOCYTES % (AUTO) 11.4 % (3.0-13.0); NEUTROPHILS # (AUTO) 1.4 K/uL (1.8-7.7); NEUTROPHILS % (AUTO) 39.2 % (40.0-77.0); PLATELET COUNT (AUTO) 189 K/uL (130-400); RED BLOOD CELL COUNT(AUTO) 4.14 MIL/uL (4.00-5.50); RED CELL DISTRIBUTION WIDTH 12.9 % (11.0-15.5); WHITE BLOOD COUNT (AUTO) 3.7 K/uL (4.8-10.8)
[2024-06-14 06:22] LABS: ALBUMIN 3.1 g/dL (3.5-5.0); BILIRUBIN,TOTAL 0.9 mg/dL (0.2-1.0); CREATININE 0.6 mg/dL (0.5-1.0); POTASSIUM 3.8 mmol/L (3.5-5.1); TOTAL PROTEIN, SERUM 6.6 g/dL (6.0-8.3)
[2024-06-14 06:31] LABS: B-TYPE NATRIURETIC PEPTIDE 75 pg/mL (0-100)
[2024-06-14] MEDS: LISINOPRIL 20 MG TABLET PO SCH (08:38)
--- NOTE | 2024-06-14 08:46 | NUR ---
PATIENT STATED SHE HAS NOT HAVE A BOWEL MOVEMENT IN 4 DAYS. I GAVE HER PRUNE JUICE UNTIL I CAN GET A HOLD OF PHYSICIAN.
--- NOTE | 2024-06-14 10:28 | PN ---
[facility] PROGRESS NOTE Date Patient Seen: Jun 14, 2024 Time of Visit: 10:27 Supervising Physician: Dr. Crowley Primary Care Physician: [Dr. Cintia Menard] Inpatient Consults: GI , GENERAL SURGERY, cardiology PROBLEM LIST: Severe sepsis on admission Septicemia, e.coli Acute hypoxemic respiratory failure Shock liver, improving Choledocholithiasis S/p ERCP on 06/10/24 Cholelithiasis Lactic acidosis Hypertension Hyperlipidemia GERD Dementia Fatty liver Legally blind Cataract Glaucoma INTERVAL HISTORY: Pt remains weak at this point. Continues on IV abx, awaiting cholecystectomy tomorrow Denies any headache or dizziness. Denies any chest pain or palpitations. Denies any cough or shortness of breath at rest. Denies any nausea, vomiting, abdominal pain, or melena Tolerating oral diet. Appetite is fair REVIEW OF SYSTEMS: 12 point ROS reviewed with patient. Pertinent positives mentioned above. Otherwise negative. PHYSICAL EXAM: GENERAL: alert, weak, awake oriented x 3 HEENT: EOMI, Sclera non icteric, moist mucosa NECK: Supple, no JVD, trachea midline LUNGS: Clear breath sounds bilaterally. No wheezes HEART: Regular rate and rhythm. Normal S1 and S2, without murmurs ABD: Abdomen soft, nontender. Bowel sounds present EXT: No clubbing cyanosis or edema NEURO: Alert and oriented to person, follows commands Vital Signs (last 8hr) Date Time Temp Pulse Resp B/P (MAP) Pulse Ox O2 Delivery O2 Flow Rate FiO2 06/14/24 08:00 98.2 67 19 148/69 96 Room Air 06/14/24 04:00 97.5 65 20 162/74 96 Room Air LABS: Hematology Labs: Test 06/14/24 05:38 Range/Units White Blood Count 3.7 L 4.8-10.8 K/uL Red Blood Count 4.14 4.00-5.50 MIL/uL Hemoglobin 12.3 12.0-16.0 g/dL Hematocrit 36.7 36-48 % Mean Corpuscular Volume 88.6 79-99 fL Mean Corpuscular Hemoglobin 29.7 27.0-33.0 pg Mean Corpuscular Hemoglobin Concent 33.5 32.0-36.0 g/dL Red Cell Distribution Width 12.9 11.0-15.5 % Platelet Count 189 130-400 K/uL Mean Platelet Volume 9.9 7.5-10.5 fL Immature Granulocyte % (Auto) 0.8 0-1 % Neutrophils (%) (Auto) 39.2 L 40.0-77.0 % Lymphocytes (%) (Auto) 45.4 21.0-51.0 % Monocytes (%) (Auto) 11.4 3.0-13.0 % Eosinophils (%) (Auto) 2.4 0.0-8.0 % Basophils (%) (Auto) 0.8 0.0-5.0 % Neutrophils # (Auto) 1.4 L 1.8-7.7 K/uL Lymphocytes # (Auto) 1.7 1.0-4.8 K/uL Monocytes # (Auto) 0.4 0.1-1.0 K/uL Eosinophils # (Auto) 0.09 0.00-0.70 K/uL Basophils # (Auto) 0.03 0.00-0.20 K/uL Absolute Immature Granulocyte (auto 0.03 0-1 K/uL Nucleated Red Blood Cells 0.0 0.0-0.19 % Chemistry Labs: Test 06/14/24 05:38 06/14/24 05:08 06/13/24 11:43 06/13/24 05:08 Range/Units Sodium Level 140 136-145 mmol/L Potassium Level 3.8 3.5-5.1 mmol/L Chloride Level 105 101-111 mmol/L Carbon Dioxide Level 30 21-32 mmol/L Blood Urea Nitrogen 8 7-18 mg/dL Creatinine 0.6 0.5-1.0 mg/dL Glomerular Filtration Rate Calc 90 >90 mL/min Random Glucose 126 H 70-105 mg/dL Total Calcium 8.8 8.5-10.1 mg/dL Total Bilirubin 0.9 0.2-1.0 mg/dL Aspartate Amino Transf (AST/SGOT) 49 H 10-37 U/L Alanine Aminotransferase (ALT/SGPT) 104 H 12-78 U/L Alkaline Phosphatase 259 H 50-136 U/L B-Type Natriuretic Peptide 75 0-100 pg/mL Total Protein 6.6 6.0-8.3 g/dL Albumin 3.1 L 3.5-5.0 g/dL Lipase 55 16-77 U/L Whole Blood Glucose 108 70-110 MG/DL Bedside Glucose Comment Notified Nurse Procalcitonin 0.34 0.05-0.5 ng/mL DIAGNOSTICS / RADIOLOGY RESULTS: Reviewed with supervising MD PLAN NEURO: Minimize central acting medications as possible. Maintain fall precautions, adequate lighting during the day PULMONARY: Supplemental 02 as needed. Maintain aspiration precautions at all times CARDIOVASCULAR: Follow hemodynamics. Vital signs per facility protocol GI & NUTRITION: Continue with nutritional support. Continue stool softeners and laxatives as needed. General surgery consultation KIDNEYS & ELECTROLYTES: Strict monitoring of intake, output and overall fluid balance. Avoid nephrotoxic medications to the extent possible. Medications to be dosed according to renal function. Monitor electrolytes and replace as needed ENDOCRINE: Maintain blood glucose between 100-180 at all times. Hypoglycemia protocol in place INFECTIOUS DISEASE: Trend temperature, WBC and procalcitonin level Follow cultures, deescalate antibiotics as soon as possible. Panculture if new onset fever ONCOLOGY/HEMATOLOGY/COAGULATION: Monitor for s/s of bleeding Monitor hemoglobin, coagulation studies as needed SKIN: Pressure ulcer prevention per facility protocol Specialty mattress ORTHO/REHAB: Continue PT/OT Prophylaxis: Continue GI and DVT prophylaxis Code Status: Full Resuscitation Disposition: TBD Other: Total patient care time excluding any procedures: 40 min Case discussed with supervising physician plan of care agreed upon ELLIE BLAND NP Jun 14, 2024 10:28
--- NOTE | 2024-06-14 11:30 | NUR ---
BLOOD GLUCOSE 116. NO INSULIN COVERAGE NEEDED AT THIS TIME.
--- NOTE | 2024-06-14 13:34 | HMCSR ---
APPROVED REPORT EXAM: Two-dimensional and M-mode echocardiogram with Doppler and color Doppler. INDICATION ICD: Acute chronic congestive heart failure 2D Dimensions IVSd0.9 (0.7-1.1cm)LVEF(%)63.6 (>50%)LVED Vol(simp.)73.3 mL LVDd4.1 (3.8-5.6cm)FS(%)34 %LVES Vol(simp.)27.9 mL PWd1.4 (0.7-1.1cm)LA (2D)3.6 (1.6-4.0cm)LVEF(%, simp.)62 % IVSs1.6 cmAo Root(2D)3.2 (2.0-3.7cm)LA ESV INDEX (4CH)31.30 mL/m2 LVDs2.7 (2.5-4.0cm)LVOT diam2.1 (1.8-2.4cm)LA ESV INDEX (2CH)31.90 mL/m2 PWs1.2 cmLA ESV INDEX (BP)29.20 mL/m2 Deformation Strain Apical 427.0 % Apical 221.0 % Apical 319.0 % Global Lswadg35.0 % M-Mode Dimensions EPSS0.9 cm LA (MM)4.3 (1.6-4.0cm) Ao Root(MM)3.0 (2.0-3.7cm) Aortic Valve AoV VTI0.3 mAo Mean GR4.0 mmHgLVOT VTI0.20 m OLIVER (VMAX)2.5 cm2Al P1/2T371 msAVA (VTI) 2.5 cm2 Mitral Valve MV E Vmax61.1 cm/sDECEL Dgfh775 ms MV A Vmax84.9 cm/sP 1/2 T66 ms E/A ratio0.7MVA (PHT)3.3 cm2 TDI E/E' Yvnzbk56.9E/E' Wubulab96.3 Medial E' Peak V4.40 cm/sLateral E' Peak V5.40 cm/s Pulmonary Valve PV VTI0.19 mPV Mean GR2 mmHg Left Ventricle The left ventricle is normal size. There is normal LV segmental wall motion. There is normal left addie tricular wall thickness. LVEF is 55%-60. Left ventricular filling pattern is normal for age. Right Ventricle The right ventricle is normal size. The right ventricular systolic function is normal. Moderator band is seen in the right ventricle. Atria The left atrium size is normal. The right atrium size is normal. Aortic Valve The aortic valve is normal in structure. Trace of aortic regurgitation is present. There is no aortic valvular stenosis. Mitral Valve The mitral valve is normal in structure. There is no evidence of significant mitral regurgitation. Tricuspid Valve The tricuspid valve is normal in structure. There is no tricuspid valve regurgitation noted. Pulmonic Valve The pulmonary valve is normal in structure. There is no pulmonic valvular regurgitation. Great Vessels The aortic root is normal in size. The IVC is normal in size and collapses >50% with inspiration. Pericardium There is no pericardial effusion. Other Information Quality : Adequate Conclusion The left ventricle is normal size. LVEF is 55%-60. Left ventricular filling pattern is normal for age. The right ventricle is normal size. The right ventricular systolic function is normal. The left atrium size is normal. The right atrium size is normal. No valvular pathology. There is no pericardial effusion.
--- NOTE | 2024-06-14 14:00 | NUR ---
PATIENT HAD A LARGE BOWEL MOVEMENT, SOFT, NO VISIBLE BLOOD.
--- NOTE | 2024-06-14 16:30 | NUR ---
BLOOD GLUCOSE 122. NO INSULIN COVERAGE NEEDED AT THIS TIME
--- NOTE | 2024-06-14 17:30 | NUR ---
PATIENT HAD A LARGE BOWEL MOVEMENT, SOFT, NO VISIBLE BLOOD.
[2024-06-15] VITALS (12 sets, daily range): BP systolic 103–163; BP diastolic 52–84; PULSE 65–83; RESP 17–20; TEMP 97.6–98.4; O2SAT 95–98
[2024-06-15 05:43] LABS: BASOPHILS # (AUTO) 0.03 K/uL (0.00-0.20); BASOPHILS % (AUTO) 0.7 % (0.0-5.0); EOSINOPHILS # (AUTO) 0.09 K/uL (0.00-0.70); EOSINOPHILS % (AUTO) 2.2 % (0.0-8.0); HEMATOCRIT 39.4 % (36-48); IMMATURE GRANULOCYTE ABSOLUTE 0.04 K/uL (0-1); LYMPHOCYTES # (AUTO) 1.7 K/uL (1.0-4.8); LYMPHOCYTES % (AUTO) 41.7 % (21.0-51.0); MEAN CORPUSCULAR HGB CONC 32.5 g/dL (32.0-36.0); MEAN CORPUSCULAR VOLUME 89.1 fL (79-99); MONOCYTES # (AUTO) 0.5 K/uL (0.1-1.0); MONOCYTES % (AUTO) 11.2 % (3.0-13.0); NEUTROPHILS # (AUTO) 1.8 K/uL (1.8-7.7); NEUTROPHILS % (AUTO) 43.2 % (40.0-77.0); PLATELET COUNT (AUTO) 205 K/uL (130-400); RED BLOOD CELL COUNT(AUTO) 4.42 MIL/uL (4.00-5.50); RED CELL DISTRIBUTION WIDTH 12.9 % (11.0-15.5); WHITE BLOOD COUNT (AUTO) 4.1 K/uL (4.8-10.8)
[2024-06-15 06:08] LABS: ALBUMIN 3.2 g/dL (3.5-5.0); BILIRUBIN,TOTAL 0.8 mg/dL (0.2-1.0); CREATININE 0.7 mg/dL (0.5-1.0); POTASSIUM 4.2 mmol/L (3.5-5.1); TOTAL PROTEIN, SERUM 6.9 g/dL (6.0-8.3)
--- NOTE | 2024-06-15 09:08 | NUR ---
DID NOT GIVE ;LOVENOX DUE TO PATIENT GOING TO SURGERY TOMORROW IN AM.
--- NOTE | 2024-06-15 11:08 | PN ---
Patient is being followed because of cholelithiasis and choledocholithiasis. She underwent an ERCP successfully. She has no further abdominal pain. She is awaiting for cardiac evaluation in order to have cholecystectomy. I have talked to the patient and family and they agree to proceed with the cholecystectomy. We will await for cardiac evaluation and we will schedule surgery soon. Vitals/Labs Vital Signs Date Time Temp Pulse Resp B/P (MAP) Pulse Ox O2 Delivery O2 Flow Rate FiO2 06/15/24 07:58 97.7 72 18 140/57 97 Room Air 06/15/24 07:06 21 06/14/24 20:30 0 Laboratory Tests 06/15/24 05:36 DEMAR MATOS MD Jun 15, 2024 11:08
--- NOTE | 2024-06-15 11:30 | NUR ---
BLOOD GLUCOSE 130. NO INSULIN COVERAGE NEEDED AT THIS TIME
--- NOTE | 2024-06-15 13:10 | PN ---
GASTROENTEROLOGY PROGRESS NOTE Date of Visit: Jun 15, 2024 Time of Visit: 13:10 Events / Notes: No acute events overnight. Review of Systems: CONSTITUTIONAL: No malaise or change in sensation of wellbeing. ENMT: No rhinorrhea, otorrhea, sinus pain, ear ache. CARDIOVASCULAR: No angina, palpitations, orthopnea or paroxysmal dyspnea. RESPIRATORY: No SOB. GASTROINTESTINAL: No abdominal pain, nausea, vomiting, diarrhea, hematemesis, melena or change in the patient's habitual bowel movements consistency/number. GENITOURINARY: No dysuria, hematuria or change in bladder continence. MUSCULOSKELETAL: No new muscle pain or decrease in muscular strength. No new joint swelling, redness or tenderness. SKIN: No new rash. Physical Exam: GEN: Awake, alert, oriented in person, time and place, and in no acute distress. HEENT: No sinus tenderness. Tympanic membranes were not examined. No rhinorrhea. Oral pharyngeal mucosa is pink, moist and within normal limits. Neck is supple with no cervical lymphadenopathy, thyromegaly or JVD. CHEST: Inspection, palpation and percussion of the chest were unremarkable. Lung auscultation revealed normal breath sounds bilaterally. CARDIAC: PMI is within normal limits. Heart sounds are regular. Normal S1, S2. No gallop or murmur. ABD: Soft, non-tender and not distended. No peritoneal signs on palpation. No organomegaly. Normal bowel sounds. EXT: No cyanosis or clubbing. No edema. SKIN: Intact. No rashes. JOINTS: No evidence of synovitis or acute arthritis. NEURO: Alert and oriented to name, place and person. Cranial nerve examination is unremarkable. No focal motor deficits. Normal speech. Gait is normal. Strength is normal. Vital Signs (last 8hr) Date Time Temp Pulse Resp B/P (MAP) Pulse Ox O2 Delivery O2 Flow Rate FiO2 06/15/24 12:00 97.9 77 18 103/52 96 Room Air 06/15/24 07:58 97.7 72 18 140/57 97 Room Air 06/15/24 07:06 75 18 N/A Room Air 21 06/15/24 05:14 71 151/69 Laboratory: [ ] Laboratory: Test 06/15/24 11:40 06/15/24 05:36 06/14/24 05:38 Range/Units Whole Blood Glucose 130 H 70-110 MG/DL White Blood Count 4.1 L 4.8-10.8 K/uL Red Blood Count 4.42 4.00-5.50 MIL/uL Hemoglobin 12.8 12.0-16.0 g/dL Hematocrit 39.4 36-48 % Mean Corpuscular Volume 89.1 79-99 fL Mean Corpuscular Hemoglobin 29.0 27.0-33.0 pg Mean Corpuscular Hemoglobin Concent 32.5 32.0-36.0 g/dL Red Cell Distribution Width 12.9 11.0-15.5 % Platelet Count 205 130-400 K/uL Mean Platelet Volume 9.7 7.5-10.5 fL Immature Granulocyte % (Auto) 1.0 0-1 % Neutrophils (%) (Auto) 43.2 40.0-77.0 % Lymphocytes (%) (Auto) 41.7 21.0-51.0 % Monocytes (%) (Auto) 11.2 3.0-13.0 % Eosinophils (%) (Auto) 2.2 0.0-8.0 % Basophils (%) (Auto) 0.7 0.0-5.0 % Neutrophils # (Auto) 1.8 1.8-7.7 K/uL Lymphocytes # (Auto) 1.7 1.0-4.8 K/uL Monocytes # (Auto) 0.5 0.1-1.0 K/uL Eosinophils # (Auto) 0.09 0.00-0.70 K/uL Basophils # (Auto) 0.03 0.00-0.20 K/uL Absolute Immature Granulocyte (auto 0.04 0-1 K/uL Nucleated Red Blood Cells 0.0 0.0-0.19 % Sodium Level 139 136-145 mmol/L Potassium Level 4.2 3.5-5.1 mmol/L Chloride Level 104 101-111 mmol/L Carbon Dioxide Level 29 21-32 mmol/L Blood Urea Nitrogen 11 7-18 mg/dL Creatinine 0.7 0.5-1.0 mg/dL Glomerular Filtration Rate Calc 86 >90 mL/min Random Glucose 140 H 70-105 mg/dL Total Calcium 9.0 8.5-10.1 mg/dL Total Bilirubin 0.8 0.2-1.0 mg/dL Aspartate Amino Transf (AST/SGOT) 49 H 10-37 U/L Alanine Aminotransferase (ALT/SGPT) 100 H 12-78 U/L Alkaline Phosphatase 266 H 50-136 U/L Total Protein 6.9 6.0-8.3 g/dL Albumin 3.2 L 3.5-5.0 g/dL Lipase 62 16-77 U/L B-Type Natriuretic Peptide 75 0-100 pg/mL Current Medications Medications (Trade) Dose Ordered Sig/Jair Route PRN Reason Start Time Stop Time Status Last Admin Dose Admin Albuterol (DUOneb) 1 udvial [id number] PRN IH SOB/WHEEZE 06/06/24 22:30 07/06/24 22:29 Cefepime HCl (MAXipime 1 GM vial) 1 gm Q12H IVPB 06/07/24 02:00 06/07/24 13:54 DC 06/07/24 13:33 1 GM Cefepime HCl (MAXipime 2 gm vial) 2 gm Q12H IVPB 06/07/24 14:30 06/07/24 14:03 DC Cefepime HCl (MAXipime 2 gm vial) 2 gm Q12H IVPB 06/07/24 21:00 06/17/24 20:59 06/15/24 08:59 2 GM Dextrose (D50w) 50 ml AD PRN IV HYPOGLYCEMIA PROTOCOL 06/06/24 22:30 07/06/24 22:29 Diphenhydramine HCl (BENAdryl CAP) 25 mg Q6H6 PRN PO SLEEP 06/09/24 20:00 07/09/24 19:59 06/11/24 23:08 25 MG Enoxaparin Sodium (Lovenox) 30 mg DAILY SQ 06/07/24 09:00 07/07/24 08:59 06/13/24 10:15 30 MG Glucagon (Glucagon 1mg Kit) 1 mg AD PRN IM HYPOGLYCEMIA PROTOCOL 06/06/24 22:30 07/06/24 22:29 Hydralazine HCl (APRESOLine 20MG INJ) 10 mg Q6H PRN IV ADMINISTER FOR SBP > 170 06/10/24 00:30 07/10/24 00:29 06/15/24 04:27 10 MG Insulin Human Regular (humuLIN R 100 UNIT/ML 3ML) INSULIN SLIDING SCAL... ACHS SQ 06/10/24 21:00 1/7/25 00:00 06/12/24 20:17 2 UNIT Insulin Human Regular (humuLIN R 100 UNIT/ML 3ML) INSULIN SLIDING SCAL... Q6H6 SQ 06/07/24 00:00 06/10/24 18:32 DC 06/10/24 18:17 3 UNIT Lactated Ringer's 1,000 ml @ 100 mls/hr Q10H IV 06/09/24 14:30 06/12/24 14:29 DC 06/10/24 19:52 100 MLS/HR Lisinopril (Prinivil 10mg) 10 mg DAILY PO 06/08/24 09:00 06/13/24 09:54 DC 06/12/24 09:56 10 MG Lisinopril (Prinivil 20mg) 20 mg DAILY PO 06/14/24 09:00 07/14/24 08:59 06/15/24 08:59 20 MG Magnesium Sulfate 50 ml @ 0 mls/hr PROTOCOL PRN IV MAGNESIUM PROTOCOL 06/06/24 22:30 07/06/24 22:29 06/07/24 02:27 25 MLS/HR Melatonin (Melatonin) 5 mg ONCE PO 06/08/24 19:30 06/08/24 19:28 DC Pantoprazole Sodium (PROTonix 40MG INJ) 40 mg DAILY IVP 06/07/24 09:00 07/07/24 08:59 06/15/24 08:59 40 MG Pharmacy Profile Note (Pharmacy Communication) 1 each ONCE MISC 06/10/24 18:30 06/10/24 18:36 DC Potassium Chloride 100 ml @ 100 mls/hr AD PRN IV POTASSIUM PROTOCOL 06/06/24 22:30 07/06/24 22:29 06/07/24 06:27 100 MLS/HR Potassium Chloride 100 ml @ 100 mls/hr AD PRN IV POTASSIUM PROTOCOL 06/07/24 14:00 07/07/24 13:59 06/10/24 05:58 100 MLS/HR Potassium Chloride (K-Dur/Klor-Con 20meq) 20 meq AD PRN PO POTASSIUM PROTOCOL 06/07/24 14:00 07/07/24 13:59 Potassium Chloride (KCl 10% Elixir 20meq/15ml) 20 meq AD PRN PO POTASSIUM PROTOCOL 06/07/24 14:00 07/07/24 13:59 06/07/24 17:06 20 MEQ Vancomycin HCl 250 ml @ 125 mls/hr Q24H IV 06/07/24 20:30 06/07/24 13:54 DC Vancomycin HCl (Vancomycin Protocol) 1 each AD IV 06/06/24 23:00 06/08/24 07:43 DC Diagnostics / Radiology: [COPY/PASTE HERE IF NO REPORTS PLEASE DELETE SECTION] Assessment: Abnormal LFTs Cholelithiasis HTN Plan: Continue GI prophylaxis Avoid NSAIDs Antireflux measures Monitor H&H and transfuse as needed Call with questions, concerns or change in clinical status Patient to follow-up at clinic post discharge Thank you for this consult SOO D[facility]LEY [facility] PHYSICIAN Jun 15, 2024 13:10
--- NOTE | 2024-06-15 15:40 | PN ---
[facility] PROGRESS NOTE Date Patient Seen: Jun 15, 2024 Time of Visit: 15:38 Supervising Physician: BLAINE MONTEIRO MD Primary Care Physician: [Dr. Cintia Menard] Inpatient Consults: GI , GENERAL SURGERY, cardiology PROBLEM LIST: Severe sepsis on admission Septicemia, e.coli Acute hypoxemic respiratory failure , improved Shock liver, improving Choledocholithiasis S/p ERCP on 06/10/24 Lactic acidosis Hypertension Hyperlipidemia GERD Dementia Fatty liver Legally blind Cataract Glaucoma INTERVAL HISTORY: Pt remains weak at this point. Continues on IV abx, awaiting cholecystectomy today.She is in good spirits, no new complaints. NPO . Discussion with patient and family regarding disposition plan. Pt to evaluate for SNF post surgery, family is open to reviewing options. REVIEW OF SYSTEMS: 12 point ROS reviewed with patient. Pertinent positives mentioned above. Otherwise negative. PHYSICAL EXAM: GENERAL: alert, weak, awake oriented x 3 HEENT: EOMI, Sclera non icteric, moist mucosa NECK: Supple, no JVD, trachea midline LUNGS: Clear breath sounds bilaterally. No wheezes HEART: Regular rate and rhythm. Normal S1 and S2, without murmurs ABD: Abdomen soft, nontender. Bowel sounds present EXT: No clubbing cyanosis or edema NEURO: Alert and oriented to person, follows commands Vital Signs (last 8hr) Date Time Temp Pulse Resp B/P (MAP) Pulse Ox O2 Delivery O2 Flow Rate FiO2 06/15/24 12:00 97.9 77 18 103/52 96 Room Air 06/15/24 07:58 97.7 72 18 140/57 97 Room Air LABS: Hematology Labs: Test 06/15/24 05:36 Range/Units White Blood Count 4.1 L 4.8-10.8 K/uL Red Blood Count 4.42 4.00-5.50 MIL/uL Hemoglobin 12.8 12.0-16.0 g/dL Hematocrit 39.4 36-48 % Mean Corpuscular Volume 89.1 79-99 fL Mean Corpuscular Hemoglobin 29.0 27.0-33.0 pg Mean Corpuscular Hemoglobin Concent 32.5 32.0-36.0 g/dL Red Cell Distribution Width 12.9 11.0-15.5 % Platelet Count 205 130-400 K/uL Mean Platelet Volume 9.7 7.5-10.5 fL Immature Granulocyte % (Auto) 1.0 0-1 % Neutrophils (%) (Auto) 43.2 40.0-77.0 % Lymphocytes (%) (Auto) 41.7 21.0-51.0 % Monocytes (%) (Auto) 11.2 3.0-13.0 % Eosinophils (%) (Auto) 2.2 0.0-8.0 % Basophils (%) (Auto) 0.7 0.0-5.0 % Neutrophils # (Auto) 1.8 1.8-7.7 K/uL Lymphocytes # (Auto) 1.7 1.0-4.8 K/uL Monocytes # (Auto) 0.5 0.1-1.0 K/uL Eosinophils # (Auto) 0.09 0.00-0.70 K/uL Basophils # (Auto) 0.03 0.00-0.20 K/uL Absolute Immature Granulocyte (auto 0.04 0-1 K/uL Nucleated Red Blood Cells 0.0 0.0-0.19 % Chemistry Labs: Test 06/15/24 11:40 06/15/24 05:36 06/14/24 05:38 Range/Units Whole Blood Glucose 130 H 70-110 MG/DL Sodium Level 139 136-145 mmol/L Potassium Level 4.2 3.5-5.1 mmol/L Chloride Level 104 101-111 mmol/L Carbon Dioxide Level 29 21-32 mmol/L Blood Urea Nitrogen 11 7-18 mg/dL Creatinine 0.7 0.5-1.0 mg/dL Glomerular Filtration Rate Calc 86 >90 mL/min Random Glucose 140 H 70-105 mg/dL Total Calcium 9.0 8.5-10.1 mg/dL Total Bilirubin 0.8 0.2-1.0 mg/dL Aspartate Amino Transf (AST/SGOT) 49 H 10-37 U/L Alanine Aminotransferase (ALT/SGPT) 100 H 12-78 U/L Alkaline Phosphatase 266 H 50-136 U/L Total Protein 6.9 6.0-8.3 g/dL Albumin 3.2 L 3.5-5.0 g/dL Lipase 62 16-77 U/L B-Type Natriuretic Peptide 75 0-100 pg/mL DIAGNOSTICS / RADIOLOGY RESULTS: [ ] PLAN NEURO: Minimize central acting medications as possible. Maintain fall precautions, adequate lighting during the day PULMONARY: Supplemental 02 as needed. Maintain aspiration precautions at all times CARDIOVASCULAR: Follow hemodynamics. Vital signs per facility protocol GI & NUTRITION: Continue with nutritional support. Continue stool softeners and laxatives as needed. General surgery on case, follow recommendations KIDNEYS & ELECTROLYTES: Strict monitoring of intake, output and overall fluid balance. Avoid nephrotoxic medications to the extent possible. Medications to be dosed according to renal function. Monitor electrolytes and replace as needed ENDOCRINE: Maintain blood glucose between 100-180 at all times. Hypoglycemia protocol in place INFECTIOUS DISEASE: Trend temperature, WBC and procalcitonin level Follow cultures, deescalate antibiotics as soon as possible. Panculture if new onset fever ONCOLOGY/HEMATOLOGY/COAGULATION: Monitor for s/s of bleeding Monitor hemoglobin, coagulation studies as needed SKIN: Pressure ulcer prevention per facility protocol Specialty mattress ORTHO/REHAB: Continue PT/OT Prophylaxis: Continue GI and DVT prophylaxis Code Status: Full Resuscitation Disposition: SNF Other: Case discussed with supervising physician plan of care agreed upon ARY AVILA Jun 15, 2024 15:40
--- NOTE | 2024-06-15 16:30 | NUR ---
BLOOD GLUCOSE 138. NO INSULIN COVERAGE NEEDED AT THIS TIME
--- NOTE | 2024-06-15 18:00 | NUR ---
OBTAINED CONSENT FOR SURGERY TOMORROW IN AM WITH DR. MATHUR.
[2024-06-16] VITALS (9 sets, daily range): BP systolic 108–181; BP diastolic 54–83; PULSE 65–93; RESP 17–18; TEMP 97.6–98.2; O2SAT 96–100
--- NOTE | 2024-06-16 09:00 | NUR ---
DID NOT GIVE MORNING PO MEDICATIONS DUE TO PATIENT BEING NPO FOR PROCEDURE. DID NOT GIVE LOVENOX DUE TO RISK FOR BLEEDING DURING PROCEDURE.
--- NOTE | 2024-06-16 11:30 | NUR ---
BLOOD GLUCOSE 109. NO INSULIN COVERAGE NEEDED AT THIS TIME.
--- NOTE | 2024-06-16 13:00 | NUR ---
DR. DOMINGUEZ GAVE MEDICAL CLEARANCE FOR SURGERY.
--- NOTE | 2024-06-16 13:06 | CONS ---
[facility] CARDIOLOGY CONSULTATION REPORT Cardiology consultation note dictated for Elier Escalante MD Date Patient Seen: Jun 16, 2024 Requesting Physician: DINO Spear Reason for Consultation: Cardiac risk stratification History of Present Illness: This is an 83-year-old female with a past medical history of hypertension, hyperlipidemia, the history of pancreatitis, GERD, dementia, cataracts, glaucoma, and is legally blind who presented to the ED with complaints of chills, runny nose, pallor, and spitting up phlegm. She was found to have transaminitis, lactic acidosis and was diagnosed with sepsis. CT of the abdomen demonstrated cholelithiasis. MRCP demonstrated choledocholithiasis. She is status post ERCP on 06/10/2024. Cardiology has been consulted for cardiac risk stratification for the patient to undergo a cholecystectomy with Dr. Maxwell Chapman. Of concern is her EKG from 06/13/2024 which demonstrated normal sinus rhythm with a heart rate of 68bpm, with a possible old anterior infarct and T-wave inversions in leads 1 and aVL. 2D echo on 06/14/2024 demonstrated an EF of 55-60%, normal LV segmental wall motion, and no valvular pathology. She currently denies chest pain, chest pressure, palpitations, dizziness, shortness of breath, fever, cough, nausea, vomiting or abdominal discomfort. Past Medical History: As per HPI and summarized below Past Surgical History: Family History: Noncontributory Social History: The patient lives with family. Habits: The patient denies alcohol, tobacco, or illicit drug use. Home Meds: Atorvastatin 10 mg daily Lisinopril 10 mg daily Pantoprazole 40 mg daily Current Meds: Current Medications Medications Dose Ordered Sig/Jair Start Time Stop Time Status Last Admin Dextrose 50 ml AD PRN 06/06/24 22:30 07/06/24 22:29 Glucagon 1 mg AD PRN 06/06/24 22:30 07/06/24 22:29 Magnesium Sulfate 50 ml @ 0 mls/hr PROTOCOL PRN 06/06/24 22:30 07/06/24 22:29 06/07/24 02:27 Potassium Chloride 100 ml @ 100 mls/hr AD PRN 06/06/24 22:30 07/06/24 22:29 06/07/24 06:27 Albuterol 1 udvial [id number] PRN 06/06/24 22:30 07/06/24 22:29 Pantoprazole Sodium 40 mg DAILY 06/07/24 09:00 07/07/24 08:59 06/16/24 10:26 Enoxaparin Sodium 30 mg DAILY 06/07/24 09:00 07/07/24 08:59 06/13/24 10:15 Potassium Chloride 100 ml @ 100 mls/hr AD PRN 06/07/24 14:00 07/07/24 13:59 06/10/24 05:58 Potassium Chloride 20 meq AD PRN 06/07/24 14:00 07/07/24 13:59 06/07/24 17:06 Potassium Chloride 20 meq AD PRN 06/07/24 14:00 07/07/24 13:59 Cefepime HCl 2 gm Q12H 06/07/24 21:00 06/17/24 20:59 06/16/24 10:25 Diphenhydramine HCl 25 mg Q6H6 PRN 06/09/24 20:00 07/09/24 19:59 06/11/24 23:08 Hydralazine HCl 10 mg Q6H PRN 06/10/24 00:30 07/10/24 00:29 06/15/24 04:27 Insulin Human Regular INSULIN SLIDING SCAL... ACHS 06/10/24 21:00 07/07/24 00:00 06/12/24 20:17 Lisinopril 20 mg DAILY 06/14/24 09:00 07/14/24 08:59 06/15/24 08:59 Review of Systems: CONST: No fever, fatigue, or weight changes. EYES: No recent vision problems. ENT: No congestion, ear pain, or sore throat. C/V: No chest pain, palpitations, or edema. RESP: No cough, congestion, wheezing or shortness of breath. She denies asthma or COPD. GI: No abdominal pain, nausea, vomiting, constipation, or diarrhea. : No incontinence or dysuria. SKIN: No rash. NEURO: No headache, focal numbness or weakness, dizziness, or seizures. PSYCH: No depression or anxiety. HEME: No abnormal bruising or bleeding. LYMPH: No swollen glands. Physical Examination: GENERAL: No acute distress. HEAD: Normal with no signs of head trauma. EYES: PERRLA, EOMI, conjunctiva and sclera normal. ENT: Hearing grossly intact, normal oropharynx. NECK: Supple without JVD. There is no tenderness, lymphadenopathy, or masses. No thyromegaly. Normal carotid upstrokes without bruits. LUNGS: Clear breath sounds bilaterally. No wheezes, or rhonchi. HEART: Normal rate and rhythm. Normal S1 and S2 without murmurs, gallop or rub. VASC: Peripheral pulses +2 bilaterally. ABD: Bowel sounds normal, soft, no masses, no organomegaly. No audible bruits. : Not examined LYMPH: No lymphadenopathy noted. EXT: No clubbing, cyanosis or edema. SKIN: No rashes or lesions noted. NEURO: Awake and alert. No focal sensory or strength deficits noted. Vital Signs (last 8hr) Date Time Temp Pulse Resp B/P (MAP) Pulse Ox O2 Delivery O2 Flow Rate FiO2 06/16/24 08:00 97.9 65 18 158/68 96 Room Air 06/16/24 07:24 68 18 N/A Room Air 21 Laboratory: Hematology Labs: Test 06/15/24 05:36 Range/Units White Blood Count 4.1 L 4.8-10.8 K/uL Red Blood Count 4.42 4.00-5.50 MIL/uL Hemoglobin 12.8 12.0-16.0 g/dL Hematocrit 39.4 36-48 % Mean Corpuscular Volume 89.1 79-99 fL Mean Corpuscular Hemoglobin 29.0 27.0-33.0 pg Mean Corpuscular Hemoglobin Concent 32.5 32.0-36.0 g/dL Red Cell Distribution Width 12.9 11.0-15.5 % Platelet Count 205 130-400 K/uL Mean Platelet Volume 9.7 7.5-10.5 fL Immature Granulocyte % (Auto) 1.0 0-1 % Neutrophils (%) (Auto) 43.2 40.0-77.0 % Lymphocytes (%) (Auto) 41.7 21.0-51.0 % Monocytes (%) (Auto) 11.2 3.0-13.0 % Eosinophils (%) (Auto) 2.2 0.0-8.0 % Basophils (%) (Auto) 0.7 0.0-5.0 % Neutrophils # (Auto) 1.8 1.8-7.7 K/uL Lymphocytes # (Auto) 1.7 1.0-4.8 K/uL Monocytes # (Auto) 0.5 0.1-1.0 K/uL Eosinophils # (Auto) 0.09 0.00-0.70 K/uL Basophils # (Auto) 0.03 0.00-0.20 K/uL Absolute Immature Granulocyte (auto 0.04 0-1 K/uL Nucleated Red Blood Cells 0.0 0.0-0.19 % Chemistry Labs: Test 06/16/24 12:36 06/15/24 05:36 Range/Units Whole Blood Glucose 109 70-110 MG/DL Sodium Level 139 136-145 mmol/L Potassium Level 4.2 3.5-5.1 mmol/L Chloride Level 104 101-111 mmol/L Carbon Dioxide Level 29 21-32 mmol/L Blood Urea Nitrogen 11 7-18 mg/dL Creatinine 0.7 0.5-1.0 mg/dL Glomerular Filtration Rate Calc 86 >90 mL/min Random Glucose 140 H 70-105 mg/dL Total Calcium 9.0 8.5-10.1 mg/dL Total Bilirubin 0.8 0.2-1.0 mg/dL Aspartate Amino Transf (AST/SGOT) 49 H 10-37 U/L Alanine Aminotransferase (ALT/SGPT) 100 H 12-78 U/L Alkaline Phosphatase 266 H 50-136 U/L Total Protein 6.9 6.0-8.3 g/dL Albumin 3.2 L 3.5-5.0 g/dL Lipase 62 16-77 U/L Diagnostics / Radiology: Echocardiogram on 06/14/2024 Conclusion The left ventricle is normal size. LVEF is 55%-60. Left ventricular filling pattern is normal for age. The right ventricle is normal size. The right ventricular systolic function is normal. The left atrium size is normal. The right atrium size is normal. No valvular pathology. There is no pericardial effusion. Impression and Plan: Cardiac risk stratification Elevated transaminases Cholelithiasis Choledocholithiasis S/post ERCP on 06/10/2024 HTN HLD Hx of pancreatitis GERD Dementia Cataracts Glaucoma Legally blind Cardiology has been consulted for cardiac risk stratification for the patient to undergo a cholecystectomy with Dr. Maxwell Chapman Of concern is her EKG from 06/13/2024 which demonstrated normal sinus rhythm with a heart rate of 68bpm, with a possible old anterior infarct and T-wave inversions in leads 1 and aVL 2D echo on 06/14/2024 demonstrated an EF of 55-60%, normal LV segmental wall motion, and no valvular pathology She currently denies anginal equivalents ATTESTATION BY PHYSICIAN I have seen and examined the patient, reviewed the above documentation, particip ated in medical decision making, made necessary modifications, and agree with the treatment plan as documented by my mid-level provider above. Twelve lead ECG shows an atypical left bundle-branch pattern with S wave in the V5/V6 leads, probably related to improper lead placement. Echocardiogram shows no evidence of infarction or cardiomyopathy and the patient has no history of anginal symptoms. Cardiac risk for noncardiac anesthesia and surgery appears to be low and she is cleared. We will sign off. MD MARIELA Quintana [facility] Jun 16, 2024 13:06 ELIER ESCALANTE MD Jun 16, 2024 13:47
--- NOTE | 2024-06-16 13:20 | NUR ---
SURGERY GOT CANCELLED. OR STATED THAT CLEARANCE CAME TO LATE AND DR. MATHUR CANCELLED THE SURGERY. NO ORDERS FOR FUTURE SURGERY. NOTIFY FAMILY MEMBERS OF DECISION. FAMILY MEMBERS NOT HAPPY ABOUT DECISION.
--- NOTE | 2024-06-16 13:21 | PN ---
[facility] PROGRESS NOTE Date Patient Seen: Jun 16, 2024 Time of Visit: 13:15 Supervising Physician: Dr Crowley Primary Care Physician: [Dr. Cintia Menard] Inpatient Consults: GI , GENERAL SURGERY, cardiology PROBLEM LIST: Severe sepsis on admission - resolved Septicemia, e.coli Acute hypoxemic respiratory failure , improved Shock liver, improving Choledocholithiasis S/p ERCP on 06/10/24 Lactic acidosis Hypertension Hyperlipidemia GERD Dementia Fatty liver Legally blind Cataract Glaucoma Plan Summary: Supplemental oxygen as needed Keep NPO Continue cefepime Patient is scheduled for lap jb today Start clear liquid diet and advanced as tolerated post surgery Cm to refer to SNF Dispo: SNF once medically stable for discharge INTERVAL HISTORY: Pt remains weak at this point. Continues on IV abx, awaiting cholecystectomy today.She is in good spirits, no new complaints. NPO . Discussion with patient and family regarding disposition plan. Pt to evaluate for SNF post surgery, family is open to reviewing options. 06/16 - patient is seen and evaluated at the bedside. Patient continues to be weak and deconditioned. Patient continues on cefepime. Patient remains NPO at this time. Patient scheduled for a cholecystectomy today. No acute changes reported overnight. As per case management and nurse, family declined SNF placement. We will continue IV antibiotics for now. We will start patient on oral diet post surgery. Vital signs are stable. Labs are within normal limits. REVIEW OF SYSTEMS: 12 point ROS reviewed with patient. Pertinent positives mentioned above. Otherwise negative. PHYSICAL EXAM: GENERAL: alert, weak, awake oriented x 3 HEENT: EOMI, Sclera non icteric, moist mucosa NECK: Supple, no JVD, trachea midline LUNGS: Clear breath sounds bilaterally. No wheezes HEART: Regular rate and rhythm. Normal S1 and S2, without murmurs ABD: Abdomen soft, nontender. Bowel sounds present EXT: No clubbing cyanosis or edema NEURO: Alert and oriented to person, follows commands Vital Signs (last 8hr) Date Time Temp Pulse Resp B/P (MAP) Pulse Ox O2 Delivery O2 Flow Rate FiO2 06/16/24 08:00 97.9 65 18 158/68 96 Room Air 06/16/24 07:24 68 18 N/A Room Air 21 LABS: Hematology Labs: Test 06/15/24 05:36 Range/Units White Blood Count 4.1 L 4.8-10.8 K/uL Red Blood Count 4.42 4.00-5.50 MIL/uL Hemoglobin 12.8 12.0-16.0 g/dL Hematocrit 39.4 36-48 % Mean Corpuscular Volume 89.1 79-99 fL Mean Corpuscular Hemoglobin 29.0 27.0-33.0 pg Mean Corpuscular Hemoglobin Concent 32.5 32.0-36.0 g/dL Red Cell Distribution Width 12.9 11.0-15.5 % Platelet Count 205 130-400 K/uL Mean Platelet Volume 9.7 7.5-10.5 fL Immature Granulocyte % (Auto) 1.0 0-1 % Neutrophils (%) (Auto) 43.2 40.0-77.0 % Lymphocytes (%) (Auto) 41.7 21.0-51.0 % Monocytes (%) (Auto) 11.2 3.0-13.0 % Eosinophils (%) (Auto) 2.2 0.0-8.0 % Basophils (%) (Auto) 0.7 0.0-5.0 % Neutrophils # (Auto) 1.8 1.8-7.7 K/uL Lymphocytes # (Auto) 1.7 1.0-4.8 K/uL Monocytes # (Auto) 0.5 0.1-1.0 K/uL Eosinophils # (Auto) 0.09 0.00-0.70 K/uL Basophils # (Auto) 0.03 0.00-0.20 K/uL Absolute Immature Granulocyte (auto 0.04 0-1 K/uL Nucleated Red Blood Cells 0.0 0.0-0.19 % Chemistry Labs: Test 06/16/24 12:36 06/15/24 05:36 Range/Units Whole Blood Glucose 109 70-110 MG/DL Sodium Level 139 136-145 mmol/L Potassium Level 4.2 3.5-5.1 mmol/L Chloride Level 104 101-111 mmol/L Carbon Dioxide Level 29 21-32 mmol/L Blood Urea Nitrogen 11 7-18 mg/dL Creatinine 0.7 0.5-1.0 mg/dL Glomerular Filtration Rate Calc 86 >90 mL/min Random Glucose 140 H 70-105 mg/dL Total Calcium 9.0 8.5-10.1 mg/dL Total Bilirubin 0.8 0.2-1.0 mg/dL Aspartate Amino Transf (AST/SGOT) 49 H 10-37 U/L Alanine Aminotransferase (ALT/SGPT) 100 H 12-78 U/L Alkaline Phosphatase 266 H 50-136 U/L Total Protein 6.9 6.0-8.3 g/dL Albumin 3.2 L 3.5-5.0 g/dL Lipase 62 16-77 U/L DIAGNOSTICS / RADIOLOGY RESULTS: [ ] PLAN NEURO: Minimize central acting medications as possible. Maintain fall precautions, adequate lighting during the day PULMONARY: Supplemental 02 as needed. Maintain aspiration precautions at all times CARDIOVASCULAR: Follow hemodynamics. Vital signs per facility protocol GI & NUTRITION: Continue with nutritional support. Continue stool softeners and laxatives as needed. General surgery on case, follow recommendations KIDNEYS & ELECTROLYTES: Strict monitoring of intake, output and overall fluid balance. Avoid nephrotoxic medications to the extent possible. Medications to be dosed according to renal function. Monitor electrolytes and replace as needed ENDOCRINE: Maintain blood glucose between 100-180 at all times. Hypoglycemia protocol in place INFECTIOUS DISEASE: Trend temperature, WBC and procalcitonin level Follow cultures, deescalate antibiotics as soon as possible. Panculture if new onset fever ONCOLOGY/HEMATOLOGY/COAGULATION: Monitor for s/s of bleeding Monitor hemoglobin, coagulation studies as needed SKIN: Pressure ulcer prevention per facility protocol Specialty mattress ORTHO/REHAB: Continue PT/OT Prophylaxis: Continue GI and DVT prophylaxis Code Status: Full Resuscitation Disposition: Home once medically stable for discharge. Other: Case discussed with supervising physician plan of care agreed upon ATTESTATION BY PHYSICIAN I reviewed the documentation, medical decision making, and treatment plan as noted by the mid-level provider above. I agree with the findings and plan of care. Kip Crowley MD, ECTOR N NP Jun 16, 2024 13:21
--- NOTE | 2024-06-16 16:30 | NUR ---
BLOOD GLUCOSE 155. NO INSULIN COVERAGE NEEDED AT THIS TIME.
--- NOTE | 2024-06-16 20:35 | PN ---
GASTROENTEROLOGY PROGRESS NOTE Date of Visit: Jun 16, 2024 Time of Visit: 20:35 Events / Notes: No acute events overnight. Review of Systems: CONSTITUTIONAL: No malaise or change in sensation of wellbeing. ENMT: No rhinorrhea, otorrhea, sinus pain, ear ache. CARDIOVASCULAR: No angina, palpitations, orthopnea or paroxysmal dyspnea. RESPIRATORY: No SOB. GASTROINTESTINAL: No abdominal pain, nausea, vomiting, diarrhea, hematemesis, melena or change in the patient's habitual bowel movements consistency/number. GENITOURINARY: No dysuria, hematuria or change in bladder continence. MUSCULOSKELETAL: No new muscle pain or decrease in muscular strength. No new joint swelling, redness or tenderness. SKIN: No new rash. Physical Exam: GEN: Awake, alert, oriented in person, time and place, and in no acute distress. HEENT: No sinus tenderness. Tympanic membranes were not examined. No rhinorrhea. Oral pharyngeal mucosa is pink, moist and within normal limits. Neck is supple with no cervical lymphadenopathy, thyromegaly or JVD. CHEST: Inspection, palpation and percussion of the chest were unremarkable. Lung auscultation revealed normal breath sounds bilaterally. CARDIAC: PMI is within normal limits. Heart sounds are regular. Normal S1, S2. No gallop or murmur. ABD: Soft, non-tender and not distended. No peritoneal signs on palpation. No organomegaly. Normal bowel sounds. EXT: No cyanosis or clubbing. No edema. SKIN: Intact. No rashes. JOINTS: No evidence of synovitis or acute arthritis. NEURO: Alert and oriented to name, place and person. Cranial nerve examination is unremarkable. No focal motor deficits. Normal speech. Gait is normal. Strength is normal. Vital Signs (last 8hr) Date Time Temp Pulse Resp B/P (MAP) Pulse Ox O2 Delivery O2 Flow Rate FiO2 06/16/24 19:56 97.9 68 17 129/68 94 Room Air 06/16/24 19:10 72 18 N/A Room Air 21 06/16/24 16:00 98.2 93 18 108/54 96 Room Air Laboratory: [ ] Laboratory: Test 06/16/24 19:31 06/15/24 05:36 Range/Units Whole Blood Glucose 129 H 70-110 MG/DL White Blood Count 4.1 L 4.8-10.8 K/uL Red Blood Count 4.42 4.00-5.50 MIL/uL Hemoglobin 12.8 12.0-16.0 g/dL Hematocrit 39.4 36-48 % Mean Corpuscular Volume 89.1 79-99 fL Mean Corpuscular Hemoglobin 29.0 27.0-33.0 pg Mean Corpuscular Hemoglobin Concent 32.5 32.0-36.0 g/dL Red Cell Distribution Width 12.9 11.0-15.5 % Platelet Count 205 130-400 K/uL Mean Platelet Volume 9.7 7.5-10.5 fL Immature Granulocyte % (Auto) 1.0 0-1 % Neutrophils (%) (Auto) 43.2 40.0-77.0 % Lymphocytes (%) (Auto) 41.7 21.0-51.0 % Monocytes (%) (Auto) 11.2 3.0-13.0 % Eosinophils (%) (Auto) 2.2 0.0-8.0 % Basophils (%) (Auto) 0.7 0.0-5.0 % Neutrophils # (Auto) 1.8 1.8-7.7 K/uL Lymphocytes # (Auto) 1.7 1.0-4.8 K/uL Monocytes # (Auto) 0.5 0.1-1.0 K/uL Eosinophils # (Auto) 0.09 0.00-0.70 K/uL Basophils # (Auto) 0.03 0.00-0.20 K/uL Absolute Immature Granulocyte (auto 0.04 0-1 K/uL Nucleated Red Blood Cells 0.0 0.0-0.19 % Sodium Level 139 136-145 mmol/L Potassium Level 4.2 3.5-5.1 mmol/L Chloride Level 104 101-111 mmol/L Carbon Dioxide Level 29 21-32 mmol/L Blood Urea Nitrogen 11 7-18 mg/dL Creatinine 0.7 0.5-1.0 mg/dL Glomerular Filtration Rate Calc 86 >90 mL/min Random Glucose 140 H 70-105 mg/dL Total Calcium 9.0 8.5-10.1 mg/dL Total Bilirubin 0.8 0.2-1.0 mg/dL Aspartate Amino Transf (AST/SGOT) 49 H 10-37 U/L Alanine Aminotransferase (ALT/SGPT) 100 H 12-78 U/L Alkaline Phosphatase 266 H 50-136 U/L Total Protein 6.9 6.0-8.3 g/dL Albumin 3.2 L 3.5-5.0 g/dL Lipase 62 16-77 U/L Current Medications Medications (Trade) Dose Ordered Sig/Jair Route PRN Reason Start Time Stop Time Status Last Admin Dose Admin Albuterol (DUOneb) 1 udvial [id number] PRN IH SOB/WHEEZE 06/06/24 22:30 07/06/24 22:29 Cefepime HCl (MAXipime 1 GM vial) 1 gm Q12H IVPB 06/07/24 02:00 06/07/24 13:54 DC 06/07/24 13:33 1 GM Cefepime HCl (MAXipime 2 gm vial) 2 gm Q12H IVPB 06/07/24 14:30 06/07/24 14:03 DC Cefepime HCl (MAXipime 2 gm vial) 2 gm Q12H IVPB 06/07/24 21:00 06/17/24 20:59 06/16/24 10:25 2 GM Dextrose (D50w) 50 ml AD PRN IV HYPOGLYCEMIA PROTOCOL 06/06/24 22:30 07/06/24 22:29 Diphenhydramine HCl (BENAdryl CAP) 25 mg Q6H6 PRN PO SLEEP 06/09/24 20:00 07/09/24 19:59 06/11/24 23:08 25 MG Enoxaparin Sodium (Lovenox) 30 mg DAILY SQ 06/07/24 09:00 07/07/24 08:59 06/13/24 10:15 30 MG Glucagon (Glucagon 1mg Kit) 1 mg AD PRN IM HYPOGLYCEMIA PROTOCOL 06/06/24 22:30 07/06/24 22:29 Hydralazine HCl (APRESOLine 20MG INJ) 10 mg Q6H PRN IV ADMINISTER FOR SBP > 170 06/10/24 00:30 07/10/24 00:29 06/15/24 04:27 10 MG Insulin Human Regular (humuLIN R 100 UNIT/ML 3ML) INSULIN SLIDING SCAL... ACHS SQ 06/10/24 21:00 07/07/24 00:00 06/12/24 20:17 2 UNIT Insulin Human Regular (humuLIN R 100 UNIT/ML 3ML) INSULIN SLIDING SCAL... Q6H6 SQ 06/07/24 00:00 06/10/24 18:32 DC 06/10/24 18:17 3 UNIT Lactated Ringer's 1,000 ml @ 100 mls/hr Q10H IV 06/09/24 14:30 06/12/24 14:29 DC 06/10/24 19:52 100 MLS/HR Lisinopril (Prinivil 10mg) 10 mg DAILY PO 06/08/24 09:00 06/13/24 09:54 DC 06/12/24 09:56 10 MG Lisinopril (Prinivil 20mg) 20 mg DAILY PO 06/14/24 09:00 07/14/24 08:59 06/15/24 08:59 20 MG Magnesium Sulfate 50 ml @ 0 mls/hr PROTOCOL PRN IV MAGNESIUM PROTOCOL 06/06/24 22:30 07/06/24 22:29 06/07/24 02:27 25 MLS/HR Melatonin (Melatonin) 5 mg ONCE PO 06/08/24 19:30 06/08/24 19:28 DC Pantoprazole Sodium (PROTonix 40MG INJ) 40 mg DAILY IVP 06/07/24 09:00 07/07/24 08:59 06/16/24 10:26 40 MG Pharmacy Profile Note (Pharmacy Communication) 1 each ONCE MISC 06/10/24 18:30 06/10/24 18:36 DC Potassium Chloride 100 ml @ 100 mls/hr AD PRN IV POTASSIUM PROTOCOL 06/06/24 22:30 07/06/24 22:29 06/07/24 06:27 100 MLS/HR Potassium Chloride 100 ml @ 100 mls/hr AD PRN IV POTASSIUM PROTOCOL 06/07/24 14:00 07/07/24 13:59 06/10/24 05:58 100 MLS/HR Potassium Chloride (K-Dur/Klor-Con 20meq) 20 meq AD PRN PO POTASSIUM PROTOCOL 06/07/24 14:00 07/07/24 13:59 Potassium Chloride (KCl 10% Elixir 20meq/15ml) 20 meq AD PRN PO POTASSIUM PROTOCOL 06/07/24 14:00 07/07/24 13:59 06/07/24 17:06 20 MEQ Vancomycin HCl 250 ml @ 125 mls/hr Q24H IV 06/07/24 20:30 06/07/24 13:54 DC Vancomycin HCl (Vancomycin Protocol) 1 each AD IV 06/06/24 23:00 06/08/24 07:43 DC Diagnostics / Radiology: [COPY/PASTE HERE IF NO REPORTS PLEASE DELETE SECTION] Assessment: Abnormal LFTs Cholelithiasis HTN Plan: Continue GI prophylaxis Avoid NSAIDs Antireflux measures Monitor H&H and transfuse as needed Call with questions, concerns or change in clinical status Patient to follow-up at clinic post discharge Thank you for this consult SOO DOOLEY [facility] Jun 16, 2024 20:35
[2024-06-17] VITALS (26 sets, daily range): BP systolic 115–164; BP diastolic 53–79; PULSE 58–88; RESP 14–20; TEMP 97.3–98.6; O2SAT 93–98
[2024-06-17] MEDS: ALBUMIN (HUMAN) 5% 250 ML IV ONE
[2024-06-17 05:35] LABS: HEMATOCRIT 37.8 % (36-48); MEAN CORPUSCULAR HEMOGLOBIN 29.5 pg (27.0-33.0); MEAN CORPUSCULAR HGB CONC 32.8 g/dL (32.0-36.0); MEAN CORPUSCULAR VOLUME 89.8 fL (79-99); RED BLOOD CELL COUNT(AUTO) 4.21 MIL/uL (4.00-5.50); RED CELL DISTRIBUTION WIDTH 12.9 % (11.0-15.5); WHITE BLOOD COUNT (AUTO) 3.7 K/uL (4.8-10.8)
[2024-06-17 05:43] LABS: CREATININE 0.7 mg/dL (0.5-1.0)
--- NOTE | 2024-06-17 09:16 | NUR ---
CHRIS PEREZ HELD FOR EDD MUSTAFA TODAY AT 2PM
[2024-06-17 10:09] LABS: PROTHROMBIN TIME 11.2 SEC (9.6-11.6)
[2024-06-17 10:10] LABS: PARTIAL THROMBOPLASTIN TIME 26.2 SEC (26.3-35.5)
[2024-06-17] MEDS: INDOCYANINE GREEN 25 MG VIAL IJ ONE (15:42)
[2024-06-17] MEDS ORDERED: FENTanyl CITRate PF 50 MCG/1 ML 2ML VIAL ONE (15:46)
[2024-06-17] MEDS ORDERED: rocuRONium bROMide 10MG/1ML 5ML VL ONE (15:46)
[2024-06-17] MEDS ORDERED: proPOFol 10 MG/ML 20ML VIAL IV ONE (15:46)
[2024-06-17] MEDS ORDERED: MIDAZOLAM HCL 1 MG/ML 2ML VIAL ONE (15:46)
[2024-06-17] MEDS ORDERED: SUCCINYLCHOLINE CHLORIDE 20 MG/ML 10 ML VIAL ONE (15:46)
[2024-06-17] MEDS ORDERED: ePHEDrine SULFate 50 MG/ML AMPULE ONE (16:07)
[2024-06-17] MEDS: ceFAZolin SODIUM 1 GM VIAL ONE (16:08)
[2024-06-17] MEDS: BUPIvacaine HCL/EPINEPHrine/PF 0.25% 10ML VIAL IJ ONE (16:10)
--- NOTE | 2024-06-17 16:25 | PN ---
GASTROENTEROLOGY PROGRESS NOTE Date of Visit: Jun 17, 2024 Time of Visit: 16:25 Events / Notes: No acute events overnight. Review of Systems: CONSTITUTIONAL: No malaise or change in sensation of wellbeing. ENMT: No rhinorrhea, otorrhea, sinus pain, ear ache. CARDIOVASCULAR: No angina, palpitations, orthopnea or paroxysmal dyspnea. RESPIRATORY: No SOB. GASTROINTESTINAL: No abdominal pain, nausea, vomiting, diarrhea, hematemesis, melena or change in the patient's habitual bowel movements consistency/number. GENITOURINARY: No dysuria, hematuria or change in bladder continence. MUSCULOSKELETAL: No new muscle pain or decrease in muscular strength. No new joint swelling, redness or tenderness. SKIN: No new rash. Physical Exam: GEN: Awake, alert, oriented in person, time and place, and in no acute distress. HEENT: No sinus tenderness. Tympanic membranes were not examined. No rhinorrhea. Oral pharyngeal mucosa is pink, moist and within normal limits. Neck is supple with no cervical lymphadenopathy, thyromegaly or JVD. CHEST: Inspection, palpation and percussion of the chest were unremarkable. Lung auscultation revealed normal breath sounds bilaterally. CARDIAC: PMI is within normal limits. Heart sounds are regular. Normal S1, S2. No gallop or murmur. ABD: Soft, non-tender and not distended. No peritoneal signs on palpation. No organomegaly. Normal bowel sounds. EXT: No cyanosis or clubbing. No edema. SKIN: Intact. No rashes. JOINTS: No evidence of synovitis or acute arthritis. NEURO: Alert and oriented to name, place and person. Cranial nerve examination is unremarkable. No focal motor deficits. Normal speech. Gait is normal. Strength is normal. Vital Signs (last 8hr) Date Time Temp Pulse Resp B/P (MAP) Pulse Ox O2 Delivery O2 Flow Rate FiO2 06/17/24 12:00 98.4 66 16 139/78 97 Room Air 21 Laboratory: [ ] Laboratory: Test 06/17/24 11:20 06/17/24 09:43 06/17/24 05:15 Range/Units Whole Blood Glucose 124 H 70-110 MG/DL Bedside Glucose Comment Notified Nurse Prothrombin Time 11.2 9.6-11.6 SEC Prothromb Time International Ratio 1.00 0.85-1.15 Activated Partial Thromboplast Time 26.2 L 26.3-35.5 SEC White Blood Count 3.7 L 4.8-10.8 K/uL Red Blood Count 4.21 4.00-5.50 MIL/uL Hemoglobin 12.4 12.0-16.0 g/dL Hematocrit 37.8 36-48 % Mean Corpuscular Volume 89.8 79-99 fL Mean Corpuscular Hemoglobin 29.5 27.0-33.0 pg Mean Corpuscular Hemoglobin Concent 32.8 32.0-36.0 g/dL Red Cell Distribution Width 12.9 11.0-15.5 % Platelet Count 215 130-400 K/uL Mean Platelet Volume 9.9 7.5-10.5 fL Nucleated Red Blood Cells 0.0 0.0-0.19 % Sodium Level 142 136-145 mmol/L Potassium Level 4.0 3.5-5.1 mmol/L Chloride Level 105 101-111 mmol/L Carbon Dioxide Level 30 21-32 mmol/L Blood Urea Nitrogen 13 7-18 mg/dL Creatinine 0.7 0.5-1.0 mg/dL Glomerular Filtration Rate Calc 86 >90 mL/min Random Glucose 127 H 70-105 mg/dL Total Calcium 9.2 8.5-10.1 mg/dL Procalcitonin < 0.05 L 0.05-0.5 ng/mL Current Medications Medications (Trade) Dose Ordered Sig/Jair Route PRN Reason Start Time Stop Time Status Last Admin Dose Admin Albuterol (DUOneb) 1 udvial [id number] PRN IH SOB/WHEEZE 06/06/24 22:30 07/06/24 22:29 Cefepime HCl (MAXipime 1 GM vial) 1 gm Q12H IVPB 06/07/24 02:00 06/07/24 13:54 DC 06/07/24 13:33 1 GM Cefepime HCl (MAXipime 2 gm vial) 2 gm Q12H IVPB 06/07/24 14:30 06/07/24 14:03 DC Cefepime HCl (MAXipime 2 gm vial) 2 gm Q12H IVPB 06/07/24 21:00 06/17/24 20:59 06/17/24 09:01 2 GM Dextrose (D50w) 50 ml AD PRN IV HYPOGLYCEMIA PROTOCOL 06/06/24 22:30 1/6/25 22:29 Diphenhydramine HCl (BENAdryl CAP) 25 mg Q6H6 PRN PO SLEEP 06/09/24 20:00 07/09/24 19:59 06/11/24 23:08 25 MG Enoxaparin Sodium (Lovenox) 30 mg DAILY SQ 06/07/24 09:00 07/07/24 08:59 06/13/24 10:15 30 MG Glucagon (Glucagon 1mg Kit) 1 mg AD PRN IM HYPOGLYCEMIA PROTOCOL 06/06/24 22:30 07/06/24 22:29 Hydralazine HCl (APRESOLine 20MG INJ) 10 mg Q6H PRN IV ADMINISTER FOR SBP > 170 06/10/24 00:30 07/10/24 00:29 06/15/24 04:27 10 MG Insulin Human Regular (humuLIN R 100 UNIT/ML 3ML) INSULIN SLIDING SCAL... ACHS SQ 06/10/24 21:00 07/07/24 00:00 06/12/24 20:17 2 UNIT Insulin Human Regular (humuLIN R 100 UNIT/ML 3ML) INSULIN SLIDING SCAL... Q6H6 SQ 06/07/24 00:00 06/10/24 18:32 DC 06/10/24 18:17 3 UNIT Lactated Ringer's 1,000 ml @ 100 mls/hr Q10H IV 06/09/24 14:30 06/12/24 14:29 DC 06/10/24 19:52 100 MLS/HR Lisinopril (Prinivil 10mg) 10 mg DAILY PO 06/08/24 09:00 06/13/24 09:54 DC 06/12/24 09:56 10 MG Lisinopril (Prinivil 20mg) 20 mg DAILY PO 06/14/24 09:00 07/14/24 08:59 06/17/24 09:02 20 MG Magnesium Sulfate 50 ml @ 0 mls/hr PROTOCOL PRN IV MAGNESIUM PROTOCOL 06/06/24 22:30 07/06/24 22:29 06/07/24 02:27 25 MLS/HR Melatonin (Melatonin) 5 mg ONCE PO 06/08/24 19:30 06/08/24 19:28 DC Pantoprazole Sodium (PROTonix 40MG INJ) 40 mg DAILY IVP 06/07/24 09:00 07/07/24 08:59 06/17/24 09:01 40 MG Pharmacy Profile Note (Pharmacy Communication) 1 each ONCE MISC 06/10/24 18:30 06/10/24 18:36 DC Potassium Chloride 100 ml @ 100 mls/hr AD PRN IV POTASSIUM PROTOCOL 06/06/24 22:30 07/06/24 22:29 06/07/24 06:27 100 MLS/HR Potassium Chloride 100 ml @ 100 mls/hr AD PRN IV POTASSIUM PROTOCOL 06/07/24 14:00 07/07/24 13:59 06/10/24 05:58 100 MLS/HR Potassium Chloride (K-Dur/Klor-Con 20meq) 20 meq AD PRN PO POTASSIUM PROTOCOL 06/07/24 14:00 07/07/24 13:59 Potassium Chloride (KCl 10% Elixir 20meq/15ml) 20 meq AD PRN PO POTASSIUM PROTOCOL 06/07/24 14:00 07/07/24 13:59 06/07/24 17:06 20 MEQ Vancomycin HCl 250 ml @ 125 mls/hr Q24H IV 06/07/24 20:30 06/07/24 13:54 DC Vancomycin HCl (Vancomycin Protocol) 1 each AD IV 06/06/24 23:00 06/08/24 07:43 DC Diagnostics / Radiology: [COPY/PASTE HERE IF NO REPORTS PLEASE DELETE SECTION] Assessment: Abnormal LFTs Cholelithiasis HTN Plan: Continue GI prophylaxis Avoid NSAIDs Antireflux measures Monitor H&H and transfuse as needed Call with questions, concerns or change in clinical status Patient to follow-up at clinic post discharge Thank you for this consult SOO DOOLEY [facility] Jun 17, 2024 16:25
[2024-06-17] MEDS ORDERED: dexaMETHasone SOD PHOSPHATE 4 MG/ML 1ML VIAL ONE (16:27)
[2024-06-17] MEDS ORDERED: ondanSETRON 4MG INJ ONE (16:27)
[2024-06-17] MEDS ORDERED: NEOSTIGMINE METHYLSULFATE 1MG/ML IV ONE (17:01)
[2024-06-17] MEDS ORDERED: GLYCOPYRROLATE 0.2 MG/ML 5 ML VIAL ONE (17:01)
[2024-06-17] MEDS ORDERED: hydrALAZine 20MG/ML VIAL ONE (17:03)
--- NOTE | 2024-06-17 17:16 | OP ---
Operative Note: DATE OF PROCEDURE: 06/17/24 SURGEON: MARIAA ZAMUDIO MD CRYSTALLOGRAPHER: [[facility] [place] staff] ANESTHESIA: [General] PREOPERATIVE DIAGNOSIS: [Gallstone pancreatitis and choledocholithiasis] POSTOPERATIVE DIAGNOSIS: [Gallstone pancreatitis and choledocholithiasis] PROCEDURE: [Laparoscopic cholecystectomy] ESTIMATED BLOOD LOSS: [40 mL] INDICATIONS: [83-year-old female with Choledocholithiasis and gallstone pancreatitis. She had a ERCP. She had preop cardiac clearance. A laparoscopic cholecystectomy was indicated. Informed consent was obtained prior to the procedure which included a discussion about bleeding, infection, bile leak, bile duct injury and injury to surrounding viscera.] DESCRIPTION OF PROCEDURE: [The patient was taken to the operating room and placed on the operating table in supine position. Next, general anesthesia was induced and they were intubated. Their abdomen was prepped and draped in a sterile fashion. Afterwards a timeout was called. The patient's identity, procedure, preoperative antibiotics and SCDs were all confirmed. I insufflated the abdomen with a Veress needle. Next, I entered the intra-abdominal cavity through a 12 mm epigastric incision using a 12 mm Optiview port with a 0 degree 10 mm scope. I placed a 3 additional ports in the following configuration: A 5 mm supraumbilical port and two 5 mm right subcostal ports. Next, I proceeded to remove the gallbladder. I used a harmonic scalpel to dissect the gallbladder off the liver bed fossa in a dome down fashion. I dissected down to the infundibulum. I skeletonized the cystic duct. The cystic artery was taken with the harmonic scalpel. I identified my critical my critical angle. I used PDS Endoloop to encircle the cystic duct. I transected the cystic duct with the harmonic scalpel and placed the specimen in an Endo Catch bag. The specimen was passed off. I inspected the gallbladder fossa. No active bleeding was seen. I closed the correction the pneumoperitoneum was evacuated. The skin incisions were closed with 4-0 Monocryl. 0.25% percent Marcaine with epinephrine was injected into the incision sites. Dermabond was applied. The sponge needle instrument counts were accurate. The patient was extubated and taken to recovery room in stable condition.] MARIAA ZAMUDIO MD Jun 17, 2024 17:16
[2024-06-17] MEDS ORDERED: traMADol HCL 50 MG TABLET PO PRN (17:30)
[2024-06-17] MEDS: SIMETHICONE 80 MG TAB.CHEW PO SCH (22:22)
--- NOTE | 2024-06-17 23:50 | PN ---
[facility] PROGRESS NOTE Date Patient Seen: Jun 17, 2024 Time of Visit: 14:49 Supervising Physician: ISHA HUGHES MD Primary Care Physician: [Dr. Cintia Menard] Inpatient Consults: GI , GENERAL SURGERY, cardiology PROBLEM LIST: Severe sepsis on admission - resolved Septicemia, e.coli Acute hypoxemic respiratory failure , improved Shock liver, improving Choledocholithiasis S/p ERCP on 06/10/24 Lactic acidosis Hypertension Hyperlipidemia GERD Dementia Fatty liver Legally blind Cataract Glaucoma Plan Summary: Supplemental oxygen as needed Keep NPO Continue cefepime Patient is scheduled for lap jb today Start clear liquid diet and advanced as tolerated post surgery Cm to refer to SNF Dispo: SNF once medically stable for discharge INTERVAL HISTORY: Pt remains weak at this point. Continues on IV abx, awaiting cholecystectomy today.She is in good spirits, no new complaints. NPO . Discussion with patient and family regarding disposition plan. Pt to evaluate for SNF post surgery, family is open to reviewing options. 06/16 - patient is seen and evaluated at the bedside. Patient continues to be weak and deconditioned. Patient continues on cefepime. Patient remains NPO at this time. Patient scheduled for a cholecystectomy today. No acute changes reported overnight. As per case management and nurse, family declined SNF placement. We will continue IV antibiotics for now. We will start patient on oral diet post surgery. Vital signs are stable. Labs are within normal limits. 06/17 Patient is an 83 year old female admitted due to sepsis and cholelithiasis, evaluated by surgeon, Lap cholecystectomy recommended, patient was taken to surgery today, otherwise no report of fever, chills, nausea or vomiting over the last 24 hours, we will continue monitoring closely.,follow up with case management regarding discharge plan once patient is stable REVIEW OF SYSTEMS: 12 point ROS reviewed with patient. Pertinent positives mentioned above. Otherwise negative. PHYSICAL EXAM: GENERAL: alert, weak, awake oriented x 3 HEENT: EOMI, Sclera non icteric, moist mucosa NECK: Supple, no JVD, trachea midline LUNGS: Clear breath sounds bilaterally. No wheezes HEART: Regular rate and rhythm. Normal S1 and S2, without murmurs ABD: Abdomen soft, nontender. Bowel sounds present EXT: No clubbing cyanosis or edema NEURO: Alert and oriented to person, follows commands Vital Signs (last 8hr) Date Time Temp Pulse Resp B/P (MAP) Pulse Ox O2 Delivery O2 Flow Rate FiO2 06/17/24 19:05 71 16 164/72 99 Nasal Cannula 2.0 06/17/24 18:50 63 16 149/70 99 Nasal Cannula 2.0 06/17/24 18:35 71 16 159/67 99 Nasal Cannula 2.0 24 06/17/24 18:20 77 16 153/64 98 Nasal Cannula 2.0 24 06/17/24 18:10 97.7 80 20 139/79 99 Nasal Cannula 2.0 06/17/24 18:05 97.5 83 16 155/74 97 Nasal Cannula 2.0 06/17/24 18:05 85 19 147/70 99 Nasal Cannula 2.0 06/17/24 18:00 81 16 147/67 98 Nasal Cannula 2.0 06/17/24 17:55 79 16 143/76 98 Nasal Cannula 2.0 06/17/24 17:50 80 14 147/76 99 Nasal Cannula 2.0 06/17/24 17:45 80 18 130/73 99 Nasal Cannula 2.0 06/17/24 17:40 81 19 122/74 100 Nonrebreathing Mask 100 06/17/24 17:35 83 16 125/61 100 Nonrebreathing Mask 100 06/17/24 17:30 84 17 141/70 100 Nonrebreathing Mask 100 06/17/24 17:25 97.3 86 17 135/58 100 Nonrebreathing Mask 100 LABS: Hematology Labs: Test 06/17/24 05:15 Range/Units White Blood Count 3.7 L 4.8-10.8 K/uL Red Blood Count 4.21 4.00-5.50 MIL/uL Hemoglobin 12.4 12.0-16.0 g/dL Hematocrit 37.8 36-48 % Mean Corpuscular Volume 89.8 79-99 fL Mean Corpuscular Hemoglobin 29.5 27.0-33.0 pg Mean Corpuscular Hemoglobin Concent 32.8 32.0-36.0 g/dL Red Cell Distribution Width 12.9 11.0-15.5 % Platelet Count 215 130-400 K/uL Mean Platelet Volume 9.9 7.5-10.5 fL Nucleated Red Blood Cells 0.0 0.0-0.19 % Chemistry Labs: Test 06/17/24 19:50 12/18/24 18:40 06/17/24 05:15 Range/Units Whole Blood Glucose 171 H 70-110 MG/DL Bedside Glucose Comment Notified Nurse Sodium Level 142 136-145 mmol/L Potassium Level 4.0 3.5-5.1 mmol/L Chloride Level 105 101-111 mmol/L Carbon Dioxide Level 30 21-32 mmol/L Blood Urea Nitrogen 13 7-18 mg/dL Creatinine 0.7 0.5-1.0 mg/dL Glomerular Filtration Rate Calc 86 >90 mL/min Random Glucose 127 H 70-105 mg/dL Total Calcium 9.2 8.5-10.1 mg/dL Procalcitonin < 0.05 L 0.05-0.5 ng/mL Coagulation Labs: Test 06/17/24 09:43 Range/Units Prothrombin Time 11.2 9.6-11.6 SEC Prothromb Time International Ratio 1.00 0.85-1.15 Activated Partial Thromboplast Time 26.2 L 26.3-35.5 SEC DIAGNOSTICS / RADIOLOGY RESULTS: [ ] PLAN follow up s/t surgery continue with antibiotic therapy adequate pain control management NEURO: Minimize central acting medications as possible. Maintain fall precautions, adequate lighting during the day PULMONARY: Supplemental 02 as needed. Maintain aspiration precautions at all times CARDIOVASCULAR: Follow hemodynamics. Vital signs per facility protocol GI & NUTRITION: Continue with nutritional support. Continue stool softeners and laxatives as needed. General surgery on case, follow recommendations KIDNEYS & ELECTROLYTES: Strict monitoring of intake, output and overall fluid balance. Avoid nephrotoxic medications to the extent possible. Medications to be dosed according to renal function. Monitor electrolytes and replace as needed ENDOCRINE: Maintain blood glucose between 100-180 at all times. Hypoglycemia protocol in place INFECTIOUS DISEASE: Trend temperature, WBC and procalcitonin level Follow cultures, deescalate antibiotics as soon as possible. Panculture if new onset fever ONCOLOGY/HEMATOLOGY/COAGULATION: Monitor for s/s of bleeding Monitor hemoglobin, coagulation studies as needed SKIN: Pressure ulcer prevention per facility protocol Specialty mattress ORTHO/REHAB: Continue PT/OT Prophylaxis: Continue GI and DVT prophylaxis Code Status: Full Resuscitation Disposition: Home once medically stable for discharge. Other: ATTESTATION BY PHYSICIAN Documentation assistance provided by a scribe, information recorded by the scribe was done at my direction and has been reviewed and validated by me." ISHA HUGHES MD I personally scribed for ELLEN VIEIRA MD ([email or web address]) on 06/17/24 at 23:50. Electronically submitted by Dalila Wilson ([id number]). I personally scribed for ELLEN VIEIRA MD ([email or web address]) on 06/18/24 at 06:45. Electronically submitted by Dalila Wilson ([id number]). ELLEN VIEIRA MD Jun 17, 2024 23:50
[2024-06-18] VITALS (8 sets, daily range): BP systolic 121–146; BP diastolic 55–66; PULSE 69–78; RESP 16–20; TEMP 97.6–98.2; O2SAT 95–96
--- NOTE | 2024-06-18 10:01 | PN ---
This is an 83-year-old female status post cholecystectomy by Dr. Reese postop day one Interval history: 73-year-old female seen in her room resting Patient tolerating diet Patient is passing gas Labs unremarkable Physical exam General: Awake alert and oriented Heart: Regular rate and rhythm} Lungs: Clear to auscultation no distress Abdomen: [Soft, nontender, nondistended expected tenderness status post laparoscopic procedure Assessment : This is a 81-year-old female status post cholecystectomy Plan: From surgical standpoint patient to advance diet as tolerated Once patient is able to tolerate soft diet patient cleared from surgical standpoint for discharge Dr. Heck to be updated in patient's status and nursing report any further acute events Vitals/Labs Vital Signs Date Time Temp Pulse Resp B/P (MAP) Pulse Ox O2 Delivery O2 Flow Rate FiO2 06/18/24 08:00 97.9 71 18 146/66 95 Room Air 21 06/18/24 00:05 2.0 Medications Current Medications Piperacillin Sod/ Tazobactam Sod 3.375 gm ONCE ONCE IV Last administered on 06/06/24at 20:29; Start 06/06/24 at 20:30; Stop 06/06/24 at 20:31; Status DC Vancomycin HCl 1 gm ONCE ONCE IV Last administered on 06/06/24at 20:29; Start 06/06/24 at 20:30; Stop 06/06/24 at 20:31; Status DC Sodium Chloride 1,836 ml @ 612 mls/hr ONCE ONCE IV Last administered on 06/06/24at 22:00; Start 06/06/24 at 22:00; Stop 06/07/24 at 00:59; Status DC Dextrose 50 ml AD PRN IV; Start 06/06/24 at 22:30; Stop 07/06/24 at 22:29 Glucagon 1 mg AD PRN IM; Start 06/06/24 at 22:30; Stop 07/06/24 at 22:29 Insulin Human Regular INSULIN SLIDING SCAL... Q6H6 SQ Last administered on 06/10/24at 18:17; Start 06/07/24 at 00:00; Stop 06/10/24 at 18:32; Status DC Magnesium Sulfate 50 ml @ 0 mls/hr PROTOCOL PRN IV Last administered on 06/07/24at 02:27; Start 06/06/24 at 22:30; Stop 07/06/24 at 22:29 Potassium Chloride 100 ml @ 100 mls/hr AD PRN IV Last administered on 06/07/24at 06:27; Start 06/06/24 at 22:30; Stop 07/06/24 at 22:29 Albuterol 1 udvial [id number] PRN IH; Start 06/06/24 at 22:30; Stop 07/06/24 at 22:29 Cefepime HCl 1 gm Q12H IVPB Last administered on 06/07/24at 13:33; Start 06/07/24 at 02:00; Stop 06/07/24 at 13:54; Status DC Vancomycin HCl 1 each AD IV; Start 06/06/24 at 23:00; Stop 06/08/24 at 07:43; Status DC Vancomycin HCl 250 ml @ 125 mls/hr Q24H IV; Start 06/07/24 at 20:30; Stop 06/07/24 at 13:54; Status DC Pantoprazole Sodium 40 mg DAILY IVP Last administered on 06/18/24at 09:42; Start 06/07/24 at 09:00; Stop 07/07/24 at 08:59 Enoxaparin Sodium 30 mg DAILY SQ Last administered on 06/18/24at 09:43; Start 06/07/24 at 09:00; Stop 07/07/24 at 08:59 Lisinopril 10 mg DAILY PO Last administered on 06/12/24at 09:56; Start 06/08/24 at 09:00; Stop 06/13/24 at 09:54; Status DC Potassium Chloride 100 ml @ 100 mls/hr AD PRN IV Last administered on 06/10/24at 05:58; Start 06/07/24 at 14:00; Stop 07/07/24 at 13:59 Potassium Chloride 20 meq AD PRN PO Last administered on 06/07/24at 17:06; Start 06/07/24 at 14:00; Stop 07/07/24 at 13:59 Potassium Chloride 20 meq AD PRN PO; Start 06/07/24 at 14:00; Stop 07/07/24 at 13:59 Cefepime HCl 2 gm Q12H IVPB; Start 06/07/24 at 14:30; Stop 06/07/24 at 14:03; Status DC Cefepime HCl 2 gm Q12H IVPB Last administered on 06/17/24at 09:01; Start 1 08/08/23 at 21:00; Stop 06/17/24 at 20:59; Status DC Melatonin 5 mg ONCE PO; Start 06/08/24 at 19:30; Stop 06/08/24 at 19:28; Status DC Melatonin 5 mg ONCE ONCE PO Last administered on 06/08/24at 20:33; Start 06/08/24 at 19:30; Stop 06/08/24 at 19:31; Status DC Lactated Ringer's 1,000 ml @ 100 mls/hr Q10H IV Last administered on 06/10/24at 19:52; Start 06/09/24 at 14:30; Stop 06/12/24 at 14:29; Status DC Diphenhydramine HCl 25 mg Q6H6 PRN PO Last administered on 06/11/24at 23:08; Start 06/09/24 at 20:00; Stop 07/09/24 at 19:59 Hydralazine HCl 10 mg Q6H PRN IV Last administered on 06/15/24at 04:27; Start 06/10/24 at 00:30; Stop 07/10/24 at 00:29 Indomethacin 100 mg ONCE ONCE RC; Start 06/10/24 at 12:00; Stop 06/10/24 at 12:01; Status DC Fentanyl Citrate 100 mcg STK-MED ONCE .ROUTE; Start 06/10/24 at 13:32; Stop 06/10/24 at 13:33; Status DC Propofol 200 mg STK-MED ONCE IV; Start 06/10/24 at 13:33; Stop 06/10/24 at 13:33; Status DC Ondansetron HCl 4 mg STK-MED ONCE .ROUTE; Start 06/10/24 at 13:33; Stop 06/10/24 at 13:33; Status DC Lidocaine HCl 100 mg STK-MED ONCE .ROUTE; Start 06/10/24 at 13:33; Stop 06/10/24 at 13:33; Status DC Iohexol 50 ml STK-MED ONCE IV; Start 06/10/24 at 14:15; Stop 06/10/24 at 14:15; Status DC Pharmacy Profile Note 1 each ONCE MISC; Start 06/10/24 at 18:30; Stop 06/10/24 at 18:36; Status DC Insulin Human Regular INSULIN SLIDING SCAL... ACHS SQ Last administered on 06/12/24at 20:17; Start 06/10/24 at 21:00; Stop 07/07/24 at 00:00 Lisinopril 20 mg DAILY PO Last administered on 06/18/24at 09:42; Start 06/14/24 at 09:00; Stop 07/14/24 at 08:59 Bupivacaine HCl/ Epinephrine Bitart 10 ml STK-MED ONCE IJ Last administered on 06/17/24at 16:10; Start 06/17/24 at 15:19; Stop 06/17/24 at 15:19; Status DC Indocyanine Green 25 mg STK-MED ONCE IJ Last administered on 06/17/24at 15:42; Start 06/17/24 at 15:31; Stop 06/17/24 at 15:31; Status DC Succinylcholine Chloride 200 mg STK-MED ONCE .ROUTE; Start 06/17/24 at 15:46; Stop 06/17/24 at 15:46; Status DC Midazolam HCl 2 mg STK-MED ONCE .ROUTE; Start 06/17/24 at 15:46; Stop 06/17/24 at 15:46; Status DC Propofol 200 mg STK-MED ONCE IV; Start 06/17/24 at 15:46; Stop 06/17/24 at 15:46; Status DC Rocuronium [place] 50 mg STK-MED ONCE .ROUTE; Start 06/17/24 at 15:46; Stop 06/17/24 at 15:46; Status DC Fentanyl Citrate 100 mcg STK-MED ONCE .ROUTE; Start 06/17/24 at 15:46; Stop 06/17/24 at 15:47; Status DC Ephedrine Sulfate 50 mg STK-MED ONCE .ROUTE; Start 06/17/24 at 16:07; Stop 06/17/24 at 16:07; Status DC Albumin Human 250 ml @ As Directed STK-MED ONCE IV Last administered on 06/17/24at 00:00; Start 06/17/24 at 16:18; Stop 06/17/24 at 16:18; Status DC Dexamethasone Sodium Phosphate 4 mg STK-MED ONCE .ROUTE; Start 06/17/24 at 16:27; Stop 06/17/24 at 16:27; Status DC Ondansetron HCl 4 mg STK-MED ONCE .ROUTE; Start 06/17/24 at 16:27; Stop 06/17/24 at 16:27; Status DC Cefazolin Sodium 1 gm STK-MED ONCE .ROUTE Last administered on 06/17/24at 16:08; Start 06/17/24 at 16:27; Stop 06/17/24 at 16:28; Status DC Glycopyrrolate 1 mg STK-MED ONCE .ROUTE; Start 06/17/24 at 17:01; Stop 06/17/24 at 17:01; Status DC Neostigmine Methylsulfate 10 mg STK-MED ONCE IV; Start 06/17/24 at 17:01; Stop 06/17/24 at 17:01; Status DC Hydralazine HCl 20 mg STK-MED ONCE .ROUTE; Start 06/17/24 at 17:03; Stop 06/17/24 at 17:04; Status DC Simethicone 80 mg QID PO Last administered on 06/18/24at 09:42; Start 06/17/24 at 21:00; Stop 07/17/24 at 20:59 Tramadol HCl 50 mg Q4H PRN PO; Start 06/17/24 at 17:30; Stop 06/22/24 at 17 :29 JIMMY GATES Jr. Jun 18, 2024 10:01
--- NOTE | 2024-06-18 22:03 | PN ---
GASTROENTEROLOGY PROGRESS NOTE Date of Visit: Jun 18, 2024 Time of Visit: 22:03 Events / Notes: No acute events overnight. Review of Systems: CONSTITUTIONAL: No malaise or change in sensation of wellbeing. ENMT: No rhinorrhea, otorrhea, sinus pain, ear ache. CARDIOVASCULAR: No angina, palpitations, orthopnea or paroxysmal dyspnea. RESPIRATORY: No SOB. GASTROINTESTINAL: No abdominal pain, nausea, vomiting, diarrhea, hematemesis, melena or change in the patient's habitual bowel movements consistency/number. GENITOURINARY: No dysuria, hematuria or change in bladder continence. MUSCULOSKELETAL: No new muscle pain or decrease in muscular strength. No new joint swelling, redness or tenderness. SKIN: No new rash. Physical Exam: GEN: Awake, alert, oriented in person, time and place, and in no acute distress. HEENT: No sinus tenderness. Tympanic membranes were not examined. No rhinorrhea. Oral pharyngeal mucosa is pink, moist and within normal limits. Neck is supple with no cervical lymphadenopathy, thyromegaly or JVD. CHEST: Inspection, palpation and percussion of the chest were unremarkable. Lung auscultation revealed normal breath sounds bilaterally. CARDIAC: PMI is within normal limits. Heart sounds are regular. Normal S1, S2. No gallop or murmur. ABD: Soft, non-tender and not distended. No peritoneal signs on palpation. No organomegaly. Normal bowel sounds. EXT: No cyanosis or clubbing. No edema. SKIN: Intact. No rashes. JOINTS: No evidence of synovitis or acute arthritis. NEURO: Alert and oriented to name, place and person. Cranial nerve examination is unremarkable. No focal motor deficits. Normal speech. Gait is normal. Strength is normal. Vital Signs (last 8hr) Date Time Temp Pulse Resp B/P (MAP) Pulse Ox O2 Delivery O2 Flow Rate FiO2 06/18/24 20:00 97.9 78 20 121/57 93 Room Air 06/18/24 16:00 98.2 75 16 132/64 96 Room Air 21 Laboratory: [ ] Laboratory: Test 06/18/24 20:10 06/18/24 16:37 06/17/24 09:43 06/17/24 05:15 Range/Units Whole Blood Glucose 134 H 70-110 MG/DL Bedside Glucose Comment Notified Nurse Prothrombin Time 11.2 9.6-11.6 SEC Prothromb Time International Ratio 1.00 0.85-1.15 Activated Partial Thromboplast Time 26.2 L 26.3-35.5 SEC White Blood Count 3.7 L 4.8-10.8 K/uL Red Blood Count 4.21 4.00-5.50 MIL/uL Hemoglobin 12.4 12.0-16.0 g/dL Hematocrit 37.8 36-48 % Mean Corpuscular Volume 89.8 79-99 fL Mean Corpuscular Hemoglobin 29.5 27.0-33.0 pg Mean Corpuscular Hemoglobin Concent 32.8 32.0-36.0 g/dL Red Cell Distribution Width 12.9 11.0-15.5 % Platelet Count 215 130-400 K/uL Mean Platelet Volume 9.9 7.5-10.5 fL Nucleated Red Blood Cells 0.0 0.0-0.19 % Sodium Level 142 136-145 mmol/L Potassium Level 4.0 3.5-5.1 mmol/L Chloride Level 105 101-111 mmol/L Carbon Dioxide Level 30 21-32 mmol/L Blood Urea Nitrogen 13 7-18 mg/dL Creatinine 0.7 0.5-1.0 mg/dL Glomerular Filtration Rate Calc 86 >90 mL/min Random Glucose 127 H 70-105 mg/dL Total Calcium 9.2 8.5-10.1 mg/dL Procalcitonin < 0.05 L 0.05-0.5 ng/mL Current Medications Medications (Trade) Dose Ordered Sig/Jair Route PRN Reason Start Time Stop Time Status Last Admin Dose Admin Albuterol (DUOneb) 1 udvial [id number] PRN IH SOB/WHEEZE 06/06/24 22:30 07/06/24 22:29 Cefepime HCl (MAXipime 1 GM vial) 1 gm Q12H IVPB 06/07/24 02:00 06/07/24 13:54 DC 06/07/24 13:33 1 GM Cefepime HCl (MAXipime 2 gm vial) 2 gm Q12H IVPB 06/07/24 14:30 06/07/24 14:03 DC Cefepime HCl (MAXipime 2 gm vial) 2 gm Q12H IVPB 06/07/24 21:00 06/17/24 20:59 DC 06/17/24 09:01 2 GM Dextrose (D50w) 50 ml AD PRN IV HYPOGLYCEMIA PROTOCOL 06/06/24 22:30 07/06/24 22:29 Diphenhydramine HCl (BENAdryl CAP) 25 mg Q6H6 PRN PO SLEEP 06/09/24 20:00 07/09/24 19:59 06/11/24 23:08 25 MG Enoxaparin Sodium (Lovenox) 30 mg DAILY SQ 06/07/24 09:00 07/07/24 08:59 06/18/24 09:43 30 MG Glucagon (Glucagon 1mg Kit) 1 mg AD PRN IM HYPOGLYCEMIA PROTOCOL 06/06/24 22:30 07/06/24 22:29 Hydralazine HCl (APRESOLine 20MG INJ) 10 mg Q6H PRN IV ADMINISTER FOR SBP > 170 06/10/24 00:30 07/10/24 00:29 06/15/24 04:27 10 MG Insulin Human Regular (humuLIN R 100 UNIT/ML 3ML) INSULIN SLIDING SCAL... ACHS SQ 06/10/24 21:00 07/07/24 00:00 06/12/24 20:17 2 UNIT Insulin Human Regular (humuLIN R 100 UNIT/ML 3ML) INSULIN SLIDING SCAL... Q6H6 SQ 06/07/24 00:00 06/10/24 18:32 DC 06/10/24 18:17 3 UNIT Lactated Ringer's 1,000 ml @ 100 mls/hr Q10H IV 06/09/24 14:30 06/12/24 14:29 DC 06/10/24 19:52 100 MLS/HR Lisinopril (Prinivil 10mg) 10 mg DAILY PO 06/08/24 09:00 06/13/24 09:54 DC 06/12/24 09:56 10 MG Lisinopril (Prinivil 20mg) 20 mg DAILY PO 06/14/24 09:00 07/14/24 08:59 06/18/24 09:42 20 MG Magnesium Sulfate 50 ml @ 0 mls/hr PROTOCOL PRN IV MAGNESIUM PROTOCOL 06/06/24 22:30 07/06/24 22:29 06/07/24 02:27 25 MLS/HR Melatonin (Melatonin) 5 mg ONCE PO 06/08/24 19:30 06/08/24 19:28 DC Pantoprazole Sodium (PROTonix 40MG INJ) 40 mg DAILY IVP 06/07/24 09:00 07/07/24 08:59 06/18/24 09:42 40 MG Pharmacy Profile Note (Pharmacy Communication) 1 each ONCE MISC 06/10/24 18:30 06/10/24 18:36 DC Potassium Chloride 100 ml @ 100 mls/hr AD PRN IV POTASSIUM PROTOCOL 06/06/24 22:30 07/06/24 22:29 06/07/24 06:27 100 MLS/HR Potassium Chloride 100 ml @ 100 mls/hr AD PRN IV POTASSIUM PROTOCOL 06/07/24 14:00 07/07/24 13:59 06/10/24 05:58 100 MLS/HR Potassium Chloride (K-Dur/Klor-Con 20meq) 20 meq AD PRN PO POTASSIUM PROTOCOL 06/07/24 14:00 07/07/24 13:59 Potassium Chloride (KCl 10% Elixir 20meq/15ml) 20 meq AD PRN PO POTASSIUM PROTOCOL 06/07/24 14:00 07/07/24 13:59 06/07/24 17:06 20 MEQ Simethicone (Mylicon) 80 mg QID PO 06/17/24 21:00 07/17/24 20:59 06/18/24 21:26 80 MG Tramadol HCl (UltRAM) 50 mg Q4H PRN PO MODERATE PAIN (4-6) 06/17/24 17:30 06/22/24 17:29 Vancomycin HCl 250 ml @ 125 mls/hr Q24H IV 06/07/24 20:30 06/07/24 13:54 DC Vancomycin HCl (Vancomycin Protocol) 1 each AD IV 06/06/24 23:00 06/08/24 07:43 DC Diagnostics / Radiology: [COPY/PASTE HERE IF NO REPORTS PLEASE DELETE SECTION] Assessment: Abnormal LFTs Cholelithiasis HTN Plan: Continue GI prophylaxis Avoid NSAIDs Antireflux measures Monitor H&H and transfuse as needed Call with questions, concerns or change in clinical status Patient to follow-up at clinic post discharge Thank you for this consult SOO DOOLEYP Jun 18, 2024 22:03
--- NOTE | 2024-06-18 22:51 | PN ---
[facility] PROGRESS NOTE Date Patient Seen: Jun 18, 2024 Time of Visit: 16:47 Supervising Physician: ISHA HUGHES MD Primary Care Physician: [Dr. Cintia Menard] Inpatient Consults: GI , GENERAL SURGERY, cardiology PROBLEM LIST: Gallstone pancreatitis and choledocholithiasis S/P Lap cholecystectomy Severe sepsis on admission - resolved Septicemia, e.coli Acute hypoxemic respiratory failure , improved Shock liver, improving Choledocholithiasis S/p ERCP on 06/10/24 Lactic acidosis Hypertension Hyperlipidemia GERD Dementia Fatty liver Legally blind Cataract Glaucoma Plan Summary: Supplemental oxygen as needed Keep NPO Continue cefepime Patient is scheduled for lap jb today Start clear liquid diet and advanced as tolerated post surgery Cm to refer to SNF Dispo: SNF once medically stable for discharge INTERVAL HISTORY: Pt remains weak at this point. Continues on IV abx, awaiting cholecystectomy today.She is in good spirits, no new complaints. NPO . Discussion with patient and family regarding disposition plan. Pt to evaluate for SNF post surgery, family is open to reviewing options. 06/16 - patient is seen and evaluated at the bedside. Patient continues to be weak and deconditioned. Patient continues on cefepime. Patient remains NPO at this time. Patient scheduled for a cholecystectomy today. No acute changes reported overnight. As per case management and nurse, family declined SNF placement. We will continue IV antibiotics for now. We will start patient on oral diet post surgery. Vital signs are stable. Labs are within normal limits. 06/17 Patient is an 83 year old female admitted due to sepsis and cholelithiasis, evaluated by surgeon, Lap cholecystectomy recommended, patient was taken to surgery today, otherwise no report of fever, chills, nausea or vomiting over the last 24 hours, we will continue monitoring closely.,follow up with case management regarding discharge plan once patient is stable 06/18 Patient is awake, alert, well oriented status post Lap cholecystectomy apparently not eating too well, denies fever, chills, nausea or vomiting advised to try to increase her oral intake in order to improve, she verbalizes understanding and agrees with plan of care. REVIEW OF SYSTEMS: 12 point ROS reviewed with patient. Pertinent positives mentioned above. Otherwise negative. PHYSICAL EXAM: GENERAL: alert, weak, awake oriented x 3 HEENT: EOMI, Sclera non icteric, moist mucosa NECK: Supple, no JVD, trachea midline LUNGS: Clear breath sounds bilaterally. No wheezes HEART: Regular rate and rhythm. Normal S1 and S2, without murmurs ABD: Abdomen soft, nontender. Bowel sounds present EXT: No clubbing cyanosis or edema NEURO: Alert and oriented to person, follows commands Vital Signs (last 8hr) Date Time Temp Pulse Resp B/P (MAP) Pulse Ox O2 Delivery O2 Flow Rate FiO2 06/18/24 20:00 97.9 78 20 121/57 93 Room Air 06/18/24 16:00 98.2 75 16 132/64 96 Room Air 21 LABS: Hematology Labs: Test 06/17/24 05:15 Range/Units White Blood Count 3.7 L 4.8-10.8 K/uL Red Blood Count 4.21 4.00-5.50 MIL/uL Hemoglobin 12.4 12.0-16.0 g/dL Hematocrit 37.8 36-48 % Mean Corpuscular Volume 89.8 79-99 fL Mean Corpuscular Hemoglobin 29.5 27.0-33.0 pg Mean Corpuscular Hemoglobin Concent 32.8 32.0-36.0 g/dL Red Cell Distribution Width 12.9 11.0-15.5 % Platelet Count 215 130-400 K/uL Mean Platelet Volume 9.9 7.5-10.5 fL Nucleated Red Blood Cells 0.0 0.0-0.19 % Chemistry Labs: Test 06/18/24 20:10 06/18/24 16:37 06/17/24 05:15 Range/Units Whole Blood Glucose 134 H 70-110 MG/DL Bedside Glucose Comment Notified Nurse Sodium Level 142 136-145 mmol/L Potassium Level 4.0 3.5-5.1 mmol/L Chloride Level 105 101-111 mmol/L Carbon Dioxide Level 30 21-32 mmol/L Blood Urea Nitrogen 13 7-18 mg/dL Creatinine 0.7 0.5-1.0 mg/dL Glomerular Filtration Rate Calc 86 >90 mL/min Random Glucose 127 H 70-105 mg/dL Total Calcium 9.2 8.5-10.1 mg/dL Procalcitonin < 0.05 L 0.05-0.5 ng/mL Coagulation Labs: Test 06/17/24 09:43 Range/Units Prothrombin Time 11.2 9.6-11.6 SEC Prothromb Time International Ratio 1.00 0.85-1.15 Activated Partial Thromboplast Time 26.2 L 26.3-35.5 SEC DIAGNOSTICS / RADIOLOGY RESULTS: [ ] PLAN increased oral intake continue with antibiotic therapy adequate pain control management NEURO: Minimize central acting medications as possible. Maintain fall precautions, adequate lighting during the day PULMONARY: Supplemental 02 as needed. Maintain aspiration precautions at all times CARDIOVASCULAR: Follow hemodynamics. Vital signs per facility protocol GI & NUTRITION: Continue with nutritional support. Continue stool softeners and laxatives as needed. General surgery on case, follow recommendations KIDNEYS & ELECTROLYTES: Strict monitoring of intake, output and overall fluid balance. Avoid nephrotoxic medications to the extent possible. Medications to be dosed according to renal function. Monitor electrolytes and replace as needed ENDOCRINE: Maintain blood glucose between 100-180 at all times. Hypoglycemia protocol in place INFECTIOUS DISEASE: Trend temperature, WBC and procalcitonin level Follow cultures, deescalate antibiotics as soon as possible. Panculture if new onset fever ONCOLOGY/HEMATOLOGY/COAGULATION: Monitor for s/s of bleeding Monitor hemoglobin, coagulation studies as needed SKIN: Pressure ulcer prevention per facility protocol Specialty mattress ORTHO/REHAB: Continue PT/OT Prophylaxis: Continue GI and DVT prophylaxis Code Status: Full Resuscitation Disposition: Home once medically stable for discharge. Other: ATTESTATION BY PHYSICIAN Documentation assistance provided by a scribe, information recorded by the scribe was done at my direction and has been reviewed and validated by me." ISHA HUGHES MD I personally scribed for ELLEN VIEIRA MD ([email or web address]) on 06/18/24 at 22:51. Electronically submitted by Dalila Wilson ([id number]). ELLEN VIEIRA MD Jun 18, 2024 22:51
[2024-06-19] VITALS: BP 151/68; PULSE 71; RESP 20; TEMP 98.1
[2024-06-19 04:00] VITALS: BP 147/68; PULSE 69; RESP 20; TEMP 98.1
[2024-06-19 07:52] VITALS: PULSE 74; RESP 18; O2SAT 100
[2024-06-19 07:56] VITALS: O2SAT 100
[2024-06-19 08:00] VITALS: BP 148/94; PULSE 71; RESP 18; TEMP 98.1; O2SAT 95
--- NOTE | 2024-06-19 10:30 | NUR ---
PATIENT WITH DISCHARGE ORDERS. PATIENT IS ALERT, ORIENTED IN PERSON, TIME AND PLACE.NO SIGNS OF RESPIRATORY DISTRESS. BOWEL SOUND PRESENT IN ALL FOUR ABDOMINAL QUADRANTS. PATIENT STATED NO PAIN AT THE MOMENT. IV ACCESS WAS DISCONTINUED. DISCUSSED PLAN OF CARE, HOME MEDICATIONS AND FOLLOW UP APPOINTMENTS.
--- NOTE | 2024-06-19 10:37 | PN ---
GASTROENTEROLOGY PROGRESS NOTE Date of Visit: Jun 19, 2024 Time of Visit: 10:37 Events / Notes: No acute events overnight. Review of Systems: CONSTITUTIONAL: No malaise or change in sensation of wellbeing. ENMT: No rhinorrhea, otorrhea, sinus pain, ear ache. CARDIOVASCULAR: No angina, palpitations, orthopnea or paroxysmal dyspnea. RESPIRATORY: No SOB. GASTROINTESTINAL: No abdominal pain, nausea, vomiting, diarrhea, hematemesis, melena or change in the patient's habitual bowel movements consistency/number. GENITOURINARY: No dysuria, hematuria or change in bladder continence. MUSCULOSKELETAL: No new muscle pain or decrease in muscular strength. No new joint swelling, redness or tenderness. SKIN: No new rash. Physical Exam: GEN: Awake, alert, oriented in person, time and place, and in no acute distress. HEENT: No sinus tenderness. Tympanic membranes were not examined. No rhinorrhea. Oral pharyngeal mucosa is pink, moist and within normal limits. Neck is supple with no cervical lymphadenopathy, thyromegaly or JVD. CHEST: Inspection, palpation and percussion of the chest were unremarkable. Lung auscultation revealed normal breath sounds bilaterally. CARDIAC: PMI is within normal limits. Heart sounds are regular. Normal S1, S2. No gallop or murmur. ABD: Soft, non-tender and not distended. No peritoneal signs on palpation. No organomegaly. Normal bowel sounds. EXT: No cyanosis or clubbing. No edema. SKIN: Intact. No rashes. JOINTS: No evidence of synovitis or acute arthritis. NEURO: Alert and oriented to name, place and person. Cranial nerve examination is unremarkable. No focal motor deficits. Normal speech. Gait is normal. Strength is normal. Vital Signs (last 8hr) Date Time Temp Pulse Resp B/P (MAP) Pulse Ox O2 Delivery O2 Flow Rate FiO2 06/19/24 08:00 98.1 71 18 148/94 95 Room Air 21 06/19/24 07:52 74 18 N/A Room Air 06/19/24 04:00 98.1 69 20 147/68 97 Room Air Laboratory: [ ] Laboratory: Test 06/19/24 05:14 06/18/24 16:37 Range/Units Whole Blood Glucose 113 H 70-110 MG/DL Bedside Glucose Comment Notified Nurse Current Medications Medications (Trade) Dose Ordered Sig/Jair Route PRN Reason Start Time Stop Time Status Last Admin Dose Admin Albuterol (DUOneb) 1 udvial [id number] PRN IH SOB/WHEEZE 06/06/24 22:30 07/06/24 22:29 Cefepime HCl (MAXipime 1 GM vial) 1 gm Q12H IVPB 06/07/24 02:00 06/07/24 13:54 DC 06/07/24 13:33 1 GM Cefepime HCl (MAXipime 2 gm vial) 2 gm Q12H IVPB 06/07/24 14:30 06/07/24 14:03 DC Cefepime HCl (MAXipime 2 gm vial) 2 gm Q12H IVPB 06/07/24 21:00 06/17/24 20:59 DC 06/17/24 09:01 2 GM Dextrose (D50w) 50 ml AD PRN IV HYPOGLYCEMIA PROTOCOL 06/06/24 22:30 07/06/24 22:29 Diphenhydramine HCl (BENAdryl CAP) 25 mg Q6H6 PRN PO SLEEP 06/09/24 20:00 07/09/24 19:59 06/11/24 23:08 25 MG Enoxaparin Sodium (Lovenox) 30 mg DAILY SQ 06/07/24 09:00 07/07/24 08:59 06/19/24 09:51 30 MG Glucagon (Glucagon 1mg Kit) 1 mg AD PRN IM HYPOGLYCEMIA PROTOCOL 06/06/24 22:30 07/06/24 22:29 Hydralazine HCl (APRESOLine 20MG INJ) 10 mg Q6H PRN IV ADMINISTER FOR SBP > 170 06/10/24 00:30 07/10/24 00:29 06/15/24 04:27 10 MG Insulin Human Regular (humuLIN R 100 UNIT/ML 3ML) INSULIN SLIDING SCAL... ACHS SQ 06/10/24 21:00 07/07/24 00:00 06/12/24 20:17 2 UNIT Insulin Human Regular (humuLIN R 100 UNIT/ML 3ML) INSULIN SLIDING SCAL... Q6H6 SQ 06/07/24 00:00 06/10/24 18:32 DC 06/10/24 18:17 3 UNIT Lactated Ringer's 1,000 ml @ 100 mls/hr Q10H IV 06/09/24 14:30 06/12/24 14:29 DC 06/10/24 19:52 100 MLS/HR Lisinopril (Prinivil 10mg) 10 mg DAILY PO 06/08/24 09:00 06/13/24 09:54 DC 06/12/24 09:56 10 MG Lisinopril (Prinivil 20mg) 20 mg DAILY PO 06/14/24 09:00 07/14/24 08:59 06/19/24 09:50 20 MG Magnesium Sulfate 50 ml @ 0 mls/hr PROTOCOL PRN IV MAGNESIUM PROTOCOL 06/06/24 22:30 07/06/24 22:29 06/07/24 02:27 25 MLS/HR Melatonin (Melatonin) 5 mg ONCE PO 06/08/24 19:30 06/08/24 19:28 DC Pantoprazole Sodium (PROTonix 40MG INJ) 40 mg DAILY IVP 06/07/24 09:00 07/07/24 08:59 06/19/24 09:49 40 MG Pharmacy Profile Note (Pharmacy Communication) 1 each ONCE MISC 06/10/24 18:30 06/10/24 18:36 DC Potassium Chloride 100 ml @ 100 mls/hr AD PRN IV POTASSIUM PROTOCOL 06/06/24 22:30 07/06/24 22:29 06/07/24 06:27 100 MLS/HR Potassium Chloride 100 ml @ 100 mls/hr AD PRN IV POTASSIUM PROTOCOL 06/07/24 14:00 07/07/24 13:59 06/10/24 05:58 100 MLS/HR Potassium Chloride (K-Dur/Klor-Con 20meq) 20 meq AD PRN PO POTASSIUM PROTOCOL 06/07/24 14:00 07/07/24 13:59 Potassium Chloride (KCl 10% Elixir 20meq/15ml) 20 meq AD PRN PO POTASSIUM PROTOCOL 06/07/24 14:00 07/07/24 13:59 06/07/24 17:06 20 MEQ Simethicone (Mylicon) 80 mg QID PO 06/17/24 21:00 07/17/24 20:59 06/19/24 09:49 80 MG Tramadol HCl (UltRAM) 50 mg Q4H PRN PO MODERATE PAIN (4-6) 06/17/24 17:30 06/22/24 17:29 Vancomycin HCl 250 ml @ 125 mls/hr Q24H IV 06/07/24 20:30 06/07/24 13:54 DC Vancomycin HCl (Vancomycin Protocol) 1 each AD IV 06/06/24 23:00 06/08/24 07:43 DC Diagnostics / Radiology: [COPY/PASTE HERE IF NO REPORTS PLEASE DELETE SECTION] Assessment: Abnormal LFTs Cholelithiasis HTN Plan: Continue GI prophylaxis Avoid NSAIDs Antireflux measures Monitor H&H and transfuse as needed Call with questions, concerns or change in clinical status Patient to follow-up at clinic post discharge Thank you for this consult SOO DOOLEY COMMUNITY DIRECTOR Jun 19, 2024 10:37
--- NOTE | 2024-06-19 11:30 | NUR ---
DID NOT CHECK BLOOD GLUCOSE. PATIENT IS BEING DISCHARGED.
[2024-06-19] MEDS ORDERED: CEFD300C3 PO (11:46)
--- NOTE | 2024-06-19 11:47 | DS ---
[facility] DISCHARGE SUMMARY Date Patient Seen: Jun 19, 2024 Time of Visit: 11:40 Supervising Physician: Dr. Brown Primary Care Physician: [Dr. Cintia Menard] Inpatient Consults: GI , GENERAL SURGERY, cardiology PROBLEM LIST: Gallstone pancreatitis and choledocholithiasis - S/P Lap cholecystectomy Severe sepsis on admission - resolved Septicemia, e.coli poa resolved Acute hypoxemic respiratory failure , improved Shock liver, improving Choledocholithiasis S/p ERCP on 06/10/24 Lactic acidosis Hypertension Hyperlipidemia GERD Dementia Fatty liver Legally blind Cataract Glaucoma HOSPITAL COURSE: HPI (per admitting provider) [ Patient is a 83-year-old female with PMH significant for HTN, HLD, dementia and fatty liver who has presented to the ED accompanied by her daughter complaining of chills, respiratory symptoms with phlegm and looking pale. Daughter claimed that the patient was in her usual state of well-being when she suddenly felt the symptoms since this morning. Patient claims that she could not stand the phlegm while the daughter was concerned because she was looking pale. Significant negatives are fever, nausea, vomiting, abdominal bloating, diarrhea, abdominal pain, dysuria or syncope. At the ED, preliminary lab works were concerning for lactic acidosis and was flagged septic. She was given IV Zosyn and vancomycin as well as IV fluid resuscitation. RUQ US was negative for cholecystitis or hydronephrosis but positive on cholelithiasis. Liver is consistent with parenchymal disease. Daughter denies any history of liver cirrhosis. Chest x-ray is negative for acute cardiopulmonary processes. CT AP result was pending at the time my interview. Physical assessment was unrevealing without abdominal tenderness, ischemia or peritonitis. Lungs are clear to auscultation. Goals of care were discussed with the patient and daughter verbalizes understanding and agreement.] 06/07 patient was seen and examined by bedside with family present. Patient is awake alert able to answer questions appropriately. At time of visit patient denies chest pain or shortness of breadth. Patient currently on room air appears to be tolerating well. Patient denies nausea vomiting or abdominal pain. At this time we will advance patient's diet to clear liquid and advance as tolerated. Patient's blood culture positive for Gram-negative rods 1/2 sets, we will repeat blood cultures. Patient to continue on IV antibiotics. We will continue to monitor patient closely 06/08 patient was seen and examined by bedside with family present. Patient at time of visit has no specific complaints. Remains on room air tolerating well. Denies chest pain or shortness of breadth. Denies any reoccurrence nausea vomiting or abdominal pain. Is tolerating liquid diet well, we will advance diet as tolerated. Patient's liver enzymes continue to be elevated, total bilirubin trending up today 6.4 yesterday 3.3, at this time we will consult GI appreciate assistance we will follow recommendations. Patient's blood culture positive for Gram-negative rods we will follow up with sensitivity report and repeat blood cultures. Patient to continue on cefepime. 06/09 patient is awake alert oriented x3 not in acute distress vital signs this morning with blood pressure of 135/71 heart rate is 67 T-max 98.6 respiratory rate is 18. She remains on room air sats 97%. Updated with cultures, blood culture is with positive E coli. This is pansensitive but given this is intra- abdominal we can continue with the current antibiotic with cefepime. This morning with WBC of 4.5 platelet count is 142. Chemistry glucose 112 LFTs with total bilirubin of 4.3 down from 6.4 AST 199 this is down from 291 ALT is 293 down from 330. Alkaline phos is 300 this is up from 260. Patient had MRCP done this morning with results of cholelithiasis, there is at least one stone in the distal common duct consistent with choledocholithiasis. Consulted to performance manager pending recommendations. Patient likely will be benefitted from ERCP. Continue with IV fluids and liquid diet. We can downgrade her to medical- surgical. Pt remains weak at this point. Continues on IV abx, awaiting cholecystectomy today.She is in good spirits, no new complaints. NPO . Discussion with patient and family regarding disposition plan. Pt to evaluate for SNF post surgery, family is open to reviewing options. 06/16 - patient is seen and evaluated at the bedside. Patient continues to be weak and deconditioned. Patient continues on cefepime. Patient remains NPO at this time. Patient scheduled for a cholecystectomy today. No acute changes reported overnight. As per case management and nurse, family declined SNF placement. We will continue IV antibiotics for now. We will start patient on oral diet post surgery. Vital signs are stable. Labs are within normal limits. 06/17 Patient is an 83 year old female admitted due to sepsis and cholelithiasis, evaluated by surgeon, Lap cholecystectomy recommended, patient was taken to surgery today, otherwise no report of fever, chills, nausea or vomiting over the last 24 hours, we will continue monitoring closely.,follow up with case management regarding discharge plan once patient is stable 06/18 Patient is awake, alert, well oriented status post Lap cholecystectomy apparently not eating too well, denies fever, chills, nausea or vomiting advised to try to increase her oral intake in order to improve, she verbalizes understanding and agrees with plan of care. Today patient is seen sitting up in bed accompanied by multiple family members. Patient's oral intake has increased with no nausea, vomiting or worsening abdominal pain. Patient reports she was having a poor appetite secondary to not liking the food at this facility. Vital signs are stable. Labs are within normal limits. Patient has been advised to follow up with PCP in the next 1-2 days. Patient has been advised to follow up with General surgery in 1-2 weeks. Patient has been advised to continue oral antibiotics as prescribed. Patient and family verbalized understanding. Medication reconciliation has been completed. New prescriptions have been sent to patient's pharmacy. Education regarding current diagnosis been prior to the patient. All questions have been answered. Patient to be discharged home. The patient was treated for the following problems: ACTIVE PROBLEM LIST FOR THE HOSPITALIZATION: Gallstone pancreatitis and choledocholithiasis - S/P Lap cholecystectomy Severe sepsis on admission - resolved Septicemia, e.coli poa resolved Acute hypoxemic respiratory failure , improved Shock liver, improving Choledocholithiasis S/p ERCP on 06/10/24 Lactic acidosis Hypertension Hyperlipidemia GERD Dementia Fatty liver Legally blind Cataract Glaucoma CHRONIC PROBLEMS: continue previous management per PCP unless otherwise indicated GROUP HOME PARAPROFESSIONAL FINDINGS/RECOMMENDATIONS: [ ] PROCEDURES: as mentioned above DISCHARGE MEDICATIONS: See discharge med rec Pt hemodynamically stable and afebrile at time of discharge. PCP notified of patients admission, hospital course and discharge. New Medications: Cefdinir (Cefdinir) 300 Mg Capsule 1 CAP PO BID for 7 Days, #14 CAP 0 Refills Continued Medications: Atorvastatin Calcium (Atorvastatin Calcium) 10 Mg Tablet 1 TAB PO DAILY for 30 Days, #30 TAB 0 Refills Lisinopril (Lisinopril) 10 Mg Tablet 1 TAB PO DAILY for 30 Days, #30 TAB 0 Refills Pantoprazole Sodium (Pantoprazole Sodium) 40 Mg Tablet.dr 1 TAB PO DAILY for 30 Days, #30 TAB 0 Refills PHYSICAL EXAM: GENERAL: alert, weak, awake oriented x 3 HEENT: EOMI, Sclera non icteric, moist mucosa NECK: Supple, no JVD, trachea midline LUNGS: Clear breath sounds bilaterally. No wheezes HEART: Regular rate and rhythm. Normal S1 and S2, without murmurs ABD: Abdomen soft, nontender. Bowel sounds present EXT: No clubbing cyanosis or edema NEURO: Alert and oriented to person, follows commands FOLLOW-UP: Follow-up with PCP in 2-3 days Follow up with General surgery in 1-2 weeks RECOMMENDATIONS: See Discharge Instructions This case was seen and discussed with my supervising physician. More than 30 minutes spent on discharge process, including evaluation of the patient, discussion with nursing staff, medication reconciliation and follow-up appointments ATTESTATION BY PHYSICIAN I have evaluated the patient chart, medical records, and spoke with appropriate staff. I reviewed the documentation, medical decision making, and treatment plan as noted by the mid-level provider above. I agree with the findings and plan of care. Kenneth Brown MD, ECTOR N NP Jun 19, 2024 11:47
--- NOTE | 2024-06-19 12:40 | NUR ---
PATIENT WAS DISCHARGED.
== END 2024-06-19 12:40 | disposition home or self-care (01) | DRG 853 ==
LOC: EDH 20:13 → EDHIP 06-07 00:37 → OBSVTOIN 06-07 00:37 → 2AH 06-07 01:46 → 3DH 06-10 22:52
PROVIDERS: ADMIT Internal Medicine Critical Care Medicine; ATTEND Internal Medicine Critical Care Medicine
PROC: 0FC98ZZ Extirpation of Matter from Common Bile Duct, Via Natural or Artificial Opening Endoscopic (ICD-10-PCS; 2024-06-10)
PROC: 0FT44ZZ Resection of Gallbladder, Percutaneous Endoscopic Approach (ICD-10-PCS; principal; 2024-06-17 15:49)
DX: A41.51 Sepsis due to Escherichia coli [E. coli] (principal); J96.01 Acute respiratory failure with hypoxia; K72.00 Acute and subacute hepatic failure without coma; K85.10 Biliary acute pancreatitis without necrosis or infection; R65.20 Severe sepsis without septic shock; I10 Essential (primary) hypertension; E66.9 Obesity, unspecified; K21.9 Gastro-esophageal reflux disease without esophagitis; H54.8 Legal blindness, as defined in USA; R73.9 Hyperglycemia, unspecified; F03.90 Unspecified dementia, unspecified severity, without behavioral disturbance, psychotic disturbance, mood disturbance, and anxiety; Z20.822 Contact with and (suspected) exposure to COVID-19; K76.0 Fatty (change of) liver, not elsewhere classified; H40.9 Unspecified glaucoma; K80.70 Calculus of gallbladder and bile duct without cholecystitis without obstruction; E78.00 Pure hypercholesterolemia, unspecified; Z68.28 Body mass index [BMI] 28.0-28.9, adult; I25.2 Old myocardial infarction; Z79.899 Other long term (current) drug therapy
CPT/HCPCS: 36415; 43262; 43264; 71045; 74176; 74181; 74328; 74330; 76705; 80048; 80053; 80076; 81001; 82140; 82150; 82330; 82948; 83036; 83605; 83690; 83735; 83880; 84100; 84145; 84443; 84484; 85025; 85027; 85610; 85651; 85730; 86140; 86692; 86705; 86706; 86709; 86803; 87040; 87086; 87186; 87340; 87635; 87804; 88304; 93005; 93306; 93356; 94664; 96374; 96375; 99285; A4606; C1769; G0378; J0330; J0360; J0690; J0692; J1100; J1650; J1815; J2003; J2250; J2405; J2470; J2543; J2704; J2710; J3010; J3370; J3475; J3480; J3490; J7030; P9045; Q0163; Q9967; 3370; A4215; A4216; A4222; A4223; A4600; A4649; A4657; A4930; A7002; S8037

== ENCOUNTER → 2024-08-18 | Outpatient (CLI) | payer OTHER, MEDICARE ==
[~2024-08-18] MED LIST: ATOR10TA69 PO; CEFD300C3 PO; LISI10TA24 PO; PANT40TA54 PO
--- NOTE | 2024-08-18 12:12 | HMCIMG ---
US ABDOMINAL COMPLETE REASON: ABN LFTS COMPARISON: MRCP 06/09/2024 FINDINGS: There is mild fatty infiltration of the liver. There are no focal mass lesions. The liver is not enlarged.The gallbladder is surgically absent. Kidneys appear normal in size and appearance. There is no evidence of mass, stone or hydronephrosis. Spleen and common duct appear normal. Aorta and inferior vena cava appear normal. The pancreas appears normal as well. IMPRESSION: 1. Absent gallbladder, no evidence of choledocholithiasis. 2. Mild fatty infiltration of the liver.
== END | disposition home or self-care (01) ==
LOC: RAH 08:50
PROVIDERS: ATTEND Internal Medicine
DX: K76.0 Fatty (change of) liver, not elsewhere classified (principal); R94.5 Abnormal results of liver function studies; Z90.49 Acquired absence of other specified parts of digestive tract
CPT/HCPCS: 76700